=== PATIENT | male | born 1945 | race Asian ===

== ENCOUNTER 2020-01-12 14:15 | Inpatient (IN) | payer MEDICARE, OTHER ==
[~2020-01-12] VITALS: Ht 170.2 cm; Wt 65.3 kg
[~2020-01-12 14:15] MED LIST: ACETAMINOPHEN325 M1 ORAL; APRODINE TABLE1 EACH PO; ARICEPT10 MG ORAL; ASPIRIN81 MG ORAL; ATENOLOL25 MG ORAL; ATENOLOL50 MG ORAL; AZOR 10-40 MG1 EACH ORAL; CARDURA8 MG ORAL; CRESTOR40 MG ORAL; DONEPEZIL HCL10 MG ORAL; DOXAZOSIN MESYLA4 MG ORAL; DULCOLAX10 MG RC; FINASTERIDE5 MG ORAL; FLONASE1 SPRAYS NASAL; GLIPIZIDE-METF1 EAC2 PO; GLUCOPHAGE500 MG ORAL; INVOKANA300 MG PO; JANUVIA100 MG ORAL; LEVOTHYROXINE125 MCG ORAL; LEXAPRO5 MG ORAL; LOSARTAN POTASS50 MG ORAL; LOVASTATIN20 MG ORAL; NAMENDA10 MG ORAL; NEXIUM40 MG ORAL; NORMODYNE100 MG ORAL; NORVASC5 MG ORAL; PROSCAR5 MG ORAL; SYNTHROID137 MCG ORAL; TRADJENTA5 MG PO; VIAGRA50 MG ORAL; VITAMIN D400 INTLU ORAL; XALATAN2.5 ML BOTH EYES
[2020-01-12 14:30] VITALS: BP 183/94
[2020-01-12] MEDS ORDERED: Azithromycin 500 MG in NS 275 ML IV ONE (14:30)
--- NOTE | 2020-01-12 14:30 | NUR ---
ED Nurse Note: Pt was BIBA from [facility], [place], operated by [facility] brought in by RA 29 due to SOB and low oxygen saturation 83% in room air. Pt came in with NC at 4LPM now at 94%. Per report, pt was COVID positive as per test result done at the [facility]. Placed on bed, hooked to grey goods examiner. Activated hepa filter. Raised bilateral side rails. droplet/airborne isolation precautions initiated. Safety measures met. Kept the door closed at all times. Will continue to monitor.
--- NOTE | 2020-01-12 14:38 | Emergency Room Report ---
History of Present Illness General Chief Complaint: Dyspnea/Respdistress Present Illness HPI 74-year-old male history of stroke, diabetes, dementia, bedbound, heart disease presented for shortness of breath and fever. [facility] with [facility] patients. Patient did test positive for coronavirus today. Patient is nonverbal at baseline. He is unable to provide any history. History taken from the longterm report. As well as EMS. Patient reportedly hypoxic on room air 83% on EMS arrival. Patient is DNR with selective treatment. Allergies: Coded Allergies: No Known Allergies (Unverified , 08/16/14) COVID-19 Screening Contact w/high risk pt: No Recent Travel to affected area: No Experienced COVID-19 symptoms?: Yes COVID-19 symptoms experienced: Fever (T>100.4F or >38C), Shortness of Breath Patient History Reviewed Nursing Documentation: PMH: Agreed; PSxH: Agreed Nursing Documentation-PMH Hx Cardiac Problems: Yes - CABG, CAD Hx Hypertension: Yes Hx Diabetes: Yes Hx Cancer: No Hx Gastrointestinal Problems: No - hypothyroidism Hx Neurological Problems: No Hx Cerebrovascular Accident: Yes Review of Systems All Other Systems: limited - Secondary to patient's baseline altered mental status Physical Exam Vital Signs Date Time Temp Pulse Resp B/P (MAP) Pulse Ox O2 Delivery O2 Flow Rate FiO2 01/12/20 14:16 100.2 104 24 183/94 (123) 94 Nasal Cannula 4.0 Sp02 EP Interpretation: reviewed, abnormal General Appearance: cachetic, Chronically Ill Head: normocephalic, atraumatic Eyes: bilateral eye PERRL, bilateral eye EOMI ENT: hearing grossly normal, moist mucus membranes Neck: full range of motion, supple Respiratory: normal inspection, no respiratory distress Cardiovascular #1: normal peripheral pulses, no murmur, tachycardia Gastrointestinal: non tender, soft, non-distended, no guarding Neurologic: alert, other - Patient does respond to voice, but is nonverbal at baseline. Skin: normal color, warm/dry Procedures Critical Care Time Critical Care Time Critical care is managed patient due to presentation with shortness of breath and active coronavirus infection. Critical care time is approximately 38 minutes and excludes procedures. Medical Decision Making Diagnostic Impression: Primary Impression: COVID-19 Additional Impression: UTI (urinary tract infection) ER Course MDM: Patient presented with hypoxia, known coronavirus infection. Patient was a DNR with selective treatment. differential diagnosis: covid-19, pneumonia, UTI, bacteremia, respiratory failure Clinical course Patient placed on stretcher. On case monitor. After initial history and physical I ordered labs, IV antibiotics, oxygen given Labs -leukocytosis noted, this with bacteria and WBCs Patient admitted to the hospital under Dr. Drummond. Patient admitted to an isolation floor. Laboratory Tests Test 01/12/20 14:25 01/12/20 14:40 Urine Color Yellow Urine Appearance Very cloudy Urine pH 5 (4.5-8.0) Urine Specific [place] 1.020 (1.005-1.035) Urine Protein 4+ (NEGATIVE) H Urine Glucose (UA) 1+ (NEGATIVE) H Urine Ketones 2+ (NEGATIVE) H Urine Blood 5+ (NEGATIVE) H Urine Nitrite Negative (NEGATIVE) Urine Bilirubin Negative (NEGATIVE) Urine Urobilinogen Normal MG/DL (0.0-1.0) Urine Leukocyte Esterase 1+ (NEGATIVE) H Urine RBC 10-15 /HPF (0 - 0) H Urine WBC 5-10 /HPF (0 - 0) H Urine Squamous Epithelial Cells None /LPF (NONE/OCC) Urine Bacteria Many /HPF (NONE) H Urine Yeast Many /HPF (NONE) H White Blood Count 21.0 K/UL (4.8-10.8) H Red Blood Count 5.54 M/UL (4.70-6.10) Hemoglobin 17.6 G/DL (14.2-18.0) Hematocrit 50.7 % (42.0-52.0) Mean Corpuscular Volume 91 FL (80-99) Mean Corpuscular Hemoglobin 31.8 PG (27.0-31.0) H Mean Corpuscular Hemoglobin Concent 34.8 G/DL (32.0-36.0) Red Cell Distribution Width 12.0 % (11.6-14.8) Platelet Count 246 K/UL (150-450) Mean Platelet Volume 5.1 FL (6.5-10.1) L Neutrophils (%) (Auto) % (45.0-75.0) Lymphocytes (%) (Auto) % (20.0-45.0) Monocytes (%) (Auto) % (1.0-10.0) Eosinophils (%) (Auto) % (0.0-3.0) Basophils (%) (Auto) % (0.0-2.0) Differential Total Cells Counted 100 Neutrophils % (Manual) 87 % (45-75) H Lymphocytes % (Manual) 8 % (20-45) L Monocytes % (Manual) 5 % (1-10) Eosinophils % (Manual) 0 % (0-3) Basophils % (Manual) 0 % (0-2) Band Neutrophils 0 % (0-8) Platelet Estimate Adequate Platelet Morphology Normal Red Blood Cell Morphology Normal Sodium Level 143 MMOL/L (136-145) Potassium Level 3.7 MMOL/L (3.5-5.1) Chloride Level 107 MMOL/L (98-107) Carbon Dioxide Level 37 MMOL/L (21-32) H Blood Urea Nitrogen 48 mg/dL (7-18) H Creatinine 1.3 MG/DL (0.55-1.30) Estimated Glomerular Filtration Rate 53.8 mL/min (>60) Glucose Level 253 MG/DL (74-106) H Lactic Acid Level 1.70 mmol/L (0.4-2.0) Calcium Level 9.5 MG/DL (8.5-10.1) Total Bilirubin 0.7 MG/DL (0.2-1.0) Aspartate Amino Transferase (AST) 16 U/L (15-37) Alanine Aminotransferase (ALT) 16 U/L (12-78) Alkaline Phosphatase 51 U/L (46-116) Total Creatine Kinase 203 U/L (26-308) Creatine Kinase MB 0.6 NG/ML (0.0-3.6) Creatine Kinase MB Relative Index 0.2 Troponin I 0.095 ng/mL (0.000-0.056) Total Protein 7.6 G/DL (6.4-8.2) Albumin 3.7 G/DL (3.4-5.0) Globulin 3.9 g/dL Albumin/Globulin Ratio 0.9 (1.0-2.7) L EKG Diagnostic Results Rate: tachycardiac Rhythm: NSR, other ST Segments: no acute changes Other Impression Sinus tachycardia Chest X-Ray Diagnostic Results Chest X-Ray Diagnostic Results : Chest X-Ray Ordered: Yes # of Views/Limited/Complete: 1 View Indication: Shortness of Breath EP Interpretation: Yes Interpretation: no consolidation, no effusion, no pneumothorax Impression: No acute disease Electronically Signed by: Johnson John MD Last Vital Signs Date Time Temp Pulse Resp B/P (MAP) Pulse Ox O2 Delivery O2 Flow Rate FiO2 01/12/20 14:16 100.2 104 24 183/94 (123) 94 Nasal Cannula 4.0 Status: unchanged Disposition: ADMITTED INPATIENT Condition: Serious Johnson John M.D. Jan 12, 2020 14:38
--- NOTE | 2020-01-12 14:45 | NUR ---
ED Nurse Note: X-ray at bedside.
[2020-01-12 15:16] LABS: HEMATOCRIT 50.7 % (42.0-52.0); HEMOGLOBIN 17.6 G/DL (14.2-18.0); MEAN CORPUSCULAR VOLUME 91 FL (80-99); PLATELET COUNT 246 K/UL (150-450); RED BLOOD COUNT 5.54 M/UL (4.70-6.10)
[2020-01-12] MEDS ORDERED: SYNTHROID125 MCG ORAL (15:19)
[2020-01-12] MEDS ORDERED: AMARYL1 MG ORAL (15:19)
[2020-01-12] MEDS ORDERED: XALATAN2.5 ML BOTH EYES (15:19)
[2020-01-12] MEDS ORDERED: MILK OF MA400 MG/51 ORAL (15:19)
[2020-01-12] MEDS ORDERED: PROSCAR5 MG ORAL (15:19)
--- NOTE | 2020-01-12 15:37 | Diagnostic Imaging Report ---
Indication: Shortness of breath Technique: One view of the chest Comparison: 07/12/2019 Findings: Suboptimal inspiration currently. The lungs and pleural spaces are clear. The heart size is normal. There are median sternotomy sutures noted. No significant interim change Impression: No acute process. Findings as noted
[2020-01-12 15:38] LABS: APPEARANCE,URINE VERY CLOUDY; BILIRUBIN, URINE NEGATIVE (NEGATIVE); COLOR,URINE YELLOW; GLUCOSE, URINE (UA) 1+ (NEGATIVE); KETONES,URINE 2+ (NEGATIVE); LEUKOCYTE ESTERASE ,URINE 1+ (NEGATIVE); NITRITE,URINE NEGATIVE (NEGATIVE); PH,URINE 5 (4.5-8.0); PROTEIN,URINE 4+ (NEGATIVE); UROBILINOGEN,URINE NORMAL MG/DL (0.0-1.0)
[2020-01-12 16:35] VITALS: BP 143/79
--- NOTE | 2020-01-12 16:37 | NUR ---
ED Nurse Note: Pt on bed, awake. VSS, on 4LPM via NC. Initial skin assessment done noted pressure ulcer on sacral area; pictures taken. MRSA, VRE/CRE swabs done; sent to labs. Will continue to monitor pt.
[2020-01-12] MEDS ORDERED: cefTRIAXone 1 GM in NS 55 ML IVPB ONE (16:45)
[2020-01-12 17:14] LABS: ALANINE AMINOTRANSFERASE 16 U/L (12-78); ALBUMIN 3.7 G/DL (3.4-5.0); ALBUMIN/GLOBULIN RATIO 0.9 (1.0-2.7); ALKALINE PHOSPHATASE 51 U/L (46-116); ASPARTATE AMINO TRANSFERASE 16 U/L (15-37); BILIRUBIN,TOTAL 0.7 MG/DL (0.2-1.0); BLOOD UREA NITROGEN 48 mg/dL (7-18); CALCIUM 9.5 MG/DL (8.5-10.1); CARBON DIOXIDE 37 MMOL/L (21-32); CHLORIDE 107 MMOL/L (98-107); CKMB 0.6 NG/ML (0.0-3.6); CREATINE KINASE 203 U/L (26-308); CREATININE 1.3 MG/DL (0.55-1.30); POTASSIUM 3.7 MMOL/L (3.5-5.1); SODIUM 143 MMOL/L (136-145)
--- NOTE | 2020-01-12 18:20 | NUR ---
TRANSFER TO FLOOR: Patient transferred to Telemetry Unit as ordered, per Dr. Drummond. Report given to KAI Robledo. Belongings and medications given to receiving RN. Family and or S/O informed of transfer.
[2020-01-12 18:30] VITALS: BP 160/97
--- NOTE | 2020-01-12 19:30 | NUR ---
NURSE NOTES: Got report from Venkat RN. Pt in stable condition. Denies any pain. No s/s of distress or discomfort noted. Pt resting in bed comfortably. Bed in low andl locked position, call light within reach, bedside table within reach. Continue to monitor.
[2020-01-12 20:00] VITALS: BP 155/90
[2020-01-13] VITALS (8 sets, daily range): BP systolic 145–176; BP diastolic 60–83
[2020-01-13] MEDS ORDERED: Zosyn 4.5gm in NS 110ml q8h IVPB SCH ×2 (01:00→09:00)
[2020-01-13] MEDS: Latanoprost 0.005% Opth 2.5ml Soln BOTH EYES SCH ×2 (01:00→21:23)
--- NOTE | 2020-01-13 05:45 | Consultation ---
DATE OF CONSULTATION: 01/12/2020 CONSULTING PHYSICIAN: Vishal Drummond M.D. REQUESTING PHYSICIAN: Eliud Lizama M.D. REASON FOR CONSULTATION: Elevated troponin level in the setting of COVID-19 infection. HISTORY OF PRESENT ILLNESS: This 74-year-old male resides at a longterm facility when outbreak of COVID-19 has been going on for the past week. The patient tested positive himself for coronavirus today. He is unable to provide history, but he has been increasingly congested, short of breath, and hypoxic. He was seen in the emergency room. He was noted to have an elevated troponin level prompting this consultation. Records have been reviewed. PAST MEDICAL HISTORY: Notable for coronary artery disease, history of coronary artery bypass graft surgery, hypertension, hypertensive heart disease, type 2 diabetes mellitus, hypothyroidism, cerebrovascular disease, history of cerebrovascular accident. ALLERGIES: None known. MEDICATIONS: Prior to admission, reviewed and reconciled. FAMILY HISTORY: Not known. SOCIAL HISTORY: Unobtainable. REVIEW OF SYSTEMS: Other than records reviewed for 20 minutes with pertinent data outlined above, no additional review of systems can be obtained from the patient. PHYSICAL EXAMINATION: VITAL SIGNS: In the emergency room, he was febrile to 100.2, blood pressure 183/94, heart rate 104, and respiratory rate 24. On 4 liters, he was saturating only 94%. NECK: No accessory muscle use. Jugular venous pressure grossly normal. LUNGS: There were bilateral breath sounds with rhonchi. CARDIAC: Regular rhythm and rate. Normal S1 and S2 with a fourth heart sound. ABDOMEN: Soft. EXTREMITIES: No edema. NEUROLOGIC: He is nonverbal. LABORATORY DATA: Chest x-ray reveals no acute abnormality. EKG reveals sinus tachycardia with nonspecific ST-T wave changes. No prolongation of QT interval seen. Troponin 0.095. Lactic acid 1.7. Sodium 143, potassium 3.7, bicarbonate 37, BUN 48, creatinine 1.3. White count 21 and hemoglobin 17.6. Urinalysis with too numerous to count white cells. IMPRESSION: 1. Acute myocardial ischemia and possible non-ST elevation myocardial infarction. 2. Hypoxia. 3. COVID-19 infection upper respiratory infection or pneumonia. 4. Urinary tract infection. 5. Leukocytosis. 6. Sepsis. 7. Prerenal azotemia. 8. Dfiuc-hk-flhjohv kidney injury. 9. Hypertension with hypertensive urgency. 10. Ischemic heart disease with prior CABG. 11. Sinus tachycardia, secondary to acute infection. PLAN: 1. Isolation for COVID-19. 2. Trial of hydroxychloroquine and azithromycin with monitoring of QT interval in place. 3. Continue antianginal regimen. 4. Titrate antihypertensives. 5. Cautiously hydrate. 6. Respiratory hygiene. 7. Empiric antimicrobials. 8. Follow up troponin levels. 9. The patient is high risk in the setting of acute COVID-19 infection and advanced cardiopulmonary disease. Vishal Drummond M.D. DR: LORA JOB#: [id number] CC:
[2020-01-13] MEDS ORDERED: Piperacillin/Tazobactam 2.25 GM in D5W 55 ML IVPB SCH (06:00)
[2020-01-13 07:12] LABS: HEMATOCRIT 42.3 % (42.0-52.0); HEMOGLOBIN 14.6 G/DL (14.2-18.0); MEAN CORPUSCULAR VOLUME 93 FL (80-99); PLATELET COUNT 203 K/UL (150-450); RED BLOOD COUNT 4.55 M/UL (4.70-6.10); RED CELL DISTRIBUTION WIDTH 12.3 % (11.6-14.8); WHITE BLOOD COUNT 12.8 K/UL (4.8-10.8)
--- NOTE | 2020-01-13 07:15 | NUR ---
HAND-OFF: Report given to Edgar QUINN.
[2020-01-13 07:22] LABS: ALANINE AMINOTRANSFERASE 12 U/L (12-78); ALBUMIN 3.2 G/DL (3.4-5.0); ALKALINE PHOSPHATASE 47 U/L (46-116); ANION GAP 11 mmol/L (5-15); ASPARTATE AMINO TRANSFERASE 16 U/L (15-37); BILIRUBIN,TOTAL 0.7 MG/DL (0.2-1.0); BLOOD UREA NITROGEN 39 mg/dL (7-18); CALCIUM 9.3 MG/DL (8.5-10.1); CARBON DIOXIDE 28 MMOL/L (21-32); CHLORIDE 113 MMOL/L (98-107); CREATININE 0.9 MG/DL (0.55-1.30); POTASSIUM 3.6 MMOL/L (3.5-5.1); SODIUM 152 MMOL/L (136-145)
[2020-01-13] MEDS ORDERED: Hydroxychloroquine Fact Sheet MISC ONE (07:45)
[2020-01-13] MEDS ORDERED: Hydroxychloroquine 400mg tab ORAL SCH (09:00)
--- NOTE | 2020-01-13 09:41 | NUR ---
Pt in bed in supine position, pt is wet and needs to be changed, pt was changed and condom cath was placed, pt has no orientation is [id number], grunts and understand only Kazakh, swallow evaluation to be done today, pt does open and close his eyes. Md Lizama was present this morning to look at the pt.
[2020-01-13] MEDS: Aspirin Baby 81mg ORAL SCH (10:40)
--- NOTE | 2020-01-13 13:57 | NUR ---
CASE MANAGEMENT:REVIEW 74 YR OLD MALE BIBA FROM [facility] CC; SOB AND LOW SATURATION 83% ON RA...PLACED ON 4L/NC SI: SEPSIS. AMI. COVID 19 100.3 104 24 183/94 94% ON 4L/NC WBC+21.0 CO2+37 BUN+48 GLUCOSE+253 TROPONIN(+)0.095 IS: 1L NS IV AZITHROMYCIN URINE CX CHEST XRAY BLOOD CX : TO TELEMETRY DCP: FROM [facility]
[2020-01-13] MEDS ORDERED: Azithromycin 250mg tab ORAL SCH (14:00)
--- NOTE | 2020-01-13 15:27 | NUR ---
NURSE NOTES:WOUND CARE NOTES: Pt presented on admission with an open Sacral DTPI . Base of wound is purple with small opening at sacrococcygeal area. Hyperpigmentation noted to cleft of buttocks /perianal area. Tx.plan: Apply Moisture Barrier Paste to Sacrum. Cover with Optifoam drsg. Change every 3 days and prn. Apply Moisture Barrier Paste to cleft of buttocks and scrotum with each incontinence care. Apply Cavilon Skin Barrier to both heels. Cover each heel with Optifoam drsg. Change every 7 days and prn. Reposition at least every 2hours or as tolerated. Off-load heels with pillow. APM/ERASMO Mattress overlay.
--- NOTE | 2020-01-13 15:39 | NUR ---
STEEL ANALYST BEDSIDE SWALLOW EVAL INITIAL IMPRESSIONS: Mild to moderate oropharyngeal dysphagia due to sensorimotor deficits compounded by current respiratory status and h/o CVA (2018) resulting in oropharyngeal dysphagia. Given thin liquids via spoon w/ immediate overt s/s of aspiration. Given nectar thick liquids via spoon and via cup, no overt s/s of aspiration. Fair hyolaryngeal excursion s/p 2-3 seconds. Given puree solids via spoon, Pt req verbal cues to swallow, delayed oral transit, mild oral residuals remaining in oral cavity; cleared w/ verbal cues for 2nd swallow. High Risk for Silent Aspiration. Continue w/ oral care, please use toothbrush w/ tongue. Educated RN and Pt on results, recommendations, and safe swallow compensatory strategies. Recommendations: 1. Cardiac Diet (per RD at SNF) Puree Solids with Clymer Thick Liquids; Aspiration Precautions and 1:1 feeder. ASPIRATION PRECAUTIONS AT [facility] 2. STEEL ANALYST dysphagia tx and management 3X A WEEK X 1 WEEK 3. Pt may benefit from STEEL ANALYST Cog Comm Evaluation for communication tips and to facilitate Pts ability to communicate wants and needs to staff and caregivers. 4. STEEL ANALYST plans to monitor Pt's appropriateness/candidacy for MBSS objective swallow evaluation to r/o silent aspiration and further evaluate swallow physiology.
--- NOTE | 2020-01-13 16:00 | Consultation ---
History of Present Illness General Date patient seen: Jan 13, 2020 Chief Complaint: Dyspnea/Respdistress Present Illness HPI 74-year-old male with multiple medical comorbidities including history of stroke , diabetes, dementia, bedbound, heart disease presented for shortness of breath and fever. Patient [facility] from [facility] with known [facility] patients. Patient did test positive for coronavirus. Patient is nonverbal at baseline. He is unable to provide any history. History taken from the alf report. As well as EMS. Patient reportedly hypoxic on room air 83% on EMS arrival. Patient is DNR with selective treatment. on admission noted to have abnormal labs and multiple wounds requiring care. surgery called to evaluate and assist with care. Allergies: Coded Allergies: No Known Allergies (Unverified , 08/16/14) Medication History Scheduled Amlodipine Besylate (Norvasc), 5 MG ORAL DAILY, (Reported) Amlodipine Besylate (Norvasc), 5 MG ORAL DAILY Aspirin* (Aspirin*), 81 MG ORAL DAILY Atenolol* (Tenormin*), 25 MG ORAL DAILY Canagliflozin (Invokana), 300 MG PO DAILY, (Reported) Donepezil Hcl* (Aricept*), 10 MG ORAL DAILY, (Reported) Donepezil Hcl* (Donepezil Hcl*), 10 MG ORAL QHS Doxazosin Mesylate (Cardura), 8 MG ORAL DAILY, (Reported) Escitalopram Oxalate (Lexapro), 10 MG ORAL DAILY, (Reported) Finasteride (Finasteride), 5 MG ORAL DAILY Finasteride* (Proscar*), 5 MG ORAL DAILY, (Reported) Finasteride* (Proscar*), 5 MG ORAL DAILY, (Reported) Glimepiride* (Amaryl*), 1 MG ORAL BEFORE BREAKFAST, (Reported) Glipizide/Metformin Hcl (Glipizide-Metformin 5-500 Mg), 2 EACH PO BID, (Reported ) Labetalol HCl (Labetalol HCl), 100 MG ORAL EVERY 12 HOURS, (Reported) Latanoprost* (Xalatan*), 1 DROP BOTH EYES BEDTIME, (Reported) Latanoprost* (Xalatan*), 1 DROP BOTH EYES BEDTIME Latanoprost* (Xalatan*), 1 DROP BOTH EYES BEDTIME, (Reported) Levothyroxine Sodium (Synthroid), 125 MCG ORAL DAILY, (Reported) Levothyroxine Sodium* (Synthroid*), 125 MCG ORAL DAILY, (Reported) Linagliptin (Tradjenta), 5 MG PO DAILY, (Reported) Losartan Potassium* (Losartan Potassium*), 100 MG ORAL DAILY, (Reported) Magnesium Hydroxide* (Milk Of Magnesia*), 30 ML ORAL DAILY, (Reported) Memantine Hcl* (Namenda*), 10 MG ORAL TWICE A DAY, (Reported) Metformin Hcl* (Glucophage*), 500 MG ORAL BIDPC Rosuvastatin Calcium* (Crestor*), 40 MG ORAL DAILY, (Reported) Vitamin D (Vitamin D3), 5,000 UNITS ORAL DAILY, (Reported) Scheduled PRN Acetaminophen* (Acetaminophen 325MG Tablet*), 650 MG ORAL Q4H PRN for Mild Pain/ Temp > 100.5, (Reported) Bisacodyl (Dulcolax), 10 MG RC DAILY PRN for Constipation, (Reported) Patient History Limited by: medical condition History Provided By: Medical Record, PMD Healthcare decision maker N Resuscitation status Advanced Directive on File Past Medical/Surgical History Past Medical/Surgical History: (1) Sepsis (2) Fever (3) Proteinuria (4) Pneumonia (5) Hematuria (6) CAD (coronary artery disease) (7) Fever of unknown origin (8) Sepsis (9) Uncontrolled diabetes mellitus (10) Dehydration (11) Malnutrition of moderate degree (12) UTI (urinary tract infection) (13) COVID-19 Review of Systems ROS Narrative unable to obtain given medical condition Physical Exam General Appearance: mild distress Lines, tubes and drains: peripheral HEENT: mucous membranes moist Neck: normal inspection Respiratory/Chest: no respiratory distress, no accessory muscle use, decreased breath sounds Cardiovascular/Chest: normal rate Abdomen: soft, no organomegaly, no mass Extremities: non-tender, slow capillary refill Neurologic: unresponsiveness Last 24 Hour Vital Signs Date Time Temp Pulse Resp B/P (MAP) Pulse Ox O2 Delivery O2 Flow Rate FiO2 01/13/20 12:30 96.5 87 22 159/82 (107) 96 01/13/20 11:51 88 01/13/20 10:41 104 159/60 01/13/20 10:40 104 159/60 01/13/20 09:37 Nasal Cannula 2.0 01/13/20 09:21 98.1 94 18 176/83 (114) 96 01/13/20 08:59 98.1 94 18 176/83 (114) 96 01/13/20 07:47 104 01/13/20 04:00 104 01/13/20 04:00 97.0 102 20 159/60 (93) 98 01/13/20 01:21 100 146/60 01/13/20 00:49 Nasal Cannula 2.0 01/13/20 00:00 94 01/13/20 00:00 98.6 100 20 146/60 (88) 100 01/12/20 21:00 Nasal Cannula 2.0 01/12/20 20:00 98.0 100 20 155/90 (111) 95 01/12/20 19:00 102 01/12/20 18:43 Nasal Cannula 4.0 01/12/20 18:30 98.2 99 20 160/97 (118) 98 01/12/20 18:20 100.2 95 24 158/78 100 Nasal Cannula 4.0 01/12/20 16:35 100.2 95 22 143/79 100 Nasal Cannula 4.0 01/12/20 16:30 103 Intake and Output 01/12/20 01/13/20 19:00 07:00 Intake Total 1275 ml Output Total 0 ml Balance 1275 ml 0 ml Intake IV Total 1275 ml Output Stool Total 0 ml # Voids 3 # Bowel Movements 2 Laboratory Tests Test 01/13/20 06:15 White Blood Count 12.8 K/UL (4.8-10.8) H Red Blood Count 4.55 M/UL (4.70-6.10) L Hemoglobin 14.6 G/DL (14.2-18.0) Hematocrit 42.3 % (42.0-52.0) Mean Corpuscular Volume 93 FL (80-99) Mean Corpuscular Hemoglobin 32.0 PG (27.0-31.0) H Mean Corpuscular Hemoglobin Concent 34.4 G/DL (32.0-36.0) Red Cell Distribution Width 12.3 % (11.6-14.8) Platelet Count 203 K/UL (150-450) Mean Platelet Volume 5.5 FL (6.5-10.1) L Neutrophils (%) (Auto) % (45.0-75.0) Lymphocytes (%) (Auto) % (20.0-45.0) Monocytes (%) (Auto) % (1.0-10.0) Eosinophils (%) (Auto) % (0.0-3.0) Basophils (%) (Auto) % (0.0-2.0) Differential Total Cells Counted 100 Neutrophils % (Manual) 89 % (45-75) H Lymphocytes % (Manual) 7 % (20-45) L Monocytes % (Manual) 4 % (1-10) Eosinophils % (Manual) 0 % (0-3) Basophils % (Manual) 0 % (0-2) Band Neutrophils 0 % (0-8) Platelet Estimate Adequate Platelet Morphology Normal Red Blood Cell Morphology Normal Sodium Level 152 MMOL/L (136-145) H Potassium Level 3.6 MMOL/L (3.5-5.1) Chloride Level 113 MMOL/L (98-107) H Carbon Dioxide Level 28 MMOL/L (21-32) Anion Gap 11 mmol/L (5-15) Blood Urea Nitrogen 39 mg/dL (7-18) H Creatinine 0.9 MG/DL (0.55-1.30) Estimat Glomerular Filtration Rate > 60 mL/min (>60) Glucose Level 244 MG/DL (74-106) H Calcium Level 9.3 MG/DL (8.5-10.1) Magnesium Level 2.2 MG/DL (1.8-2.4) Total Bilirubin 0.7 MG/DL (0.2-1.0) Aspartate Amino Transf (AST/SGOT) 16 U/L (15-37) Alanine Aminotransferase (ALT/SGPT) 12 U/L (12-78) Alkaline Phosphatase 47 U/L (46-116) Troponin I 0.048 ng/mL (0.000-0.056) Total Protein 6.5 G/DL (6.4-8.2) Albumin 3.2 G/DL (3.4-5.0) L Globulin 3.3 g/dL Albumin/Globulin Ratio 1.0 (1.0-2.7) Microbiology Date/Time Source Procedure Growth Status 01/12/20 16:13 Rectum Received Height (Feet): 5 Height (Inches): 7.00 Weight (Pounds): 170 Medications Current Medications Medications (Trade) Dose Ordered Sig/Wayne Route PRN Reason Start Time Stop Time Status Last Admin Dose Admin Acetaminophen (Tylenol) 650 mg Q4H PRN ORAL Mild Pain (Pain Scale 1-3) 01/12/20 20:45 02/11/20 20:44 Amlodipine Besylate (Norvasc) 5 mg DAILY ORAL 01/13/20 09:00 02/12/20 08:59 01/13/20 10:41 Aspirin (ASA) 81 mg DAILY ORAL 01/13/20 09:00 02/27/20 08:59 01/13/20 10:40 Azithromycin (Zithromax) 250 mg DAILY@1400 ORAL 01/13/20 14:00 01/20/20 13:59 01/13/20 13:40 Hydroxychloroquine Sulfate (Plaquenil) 200 mg BID ORAL 01/14/20 09:00 01/17/20 18:01 Hydroxychloroquine Sulfate (Plaquenil) 400 mg BID ORAL 01/13/20 09:00 01/13/20 18:01 Labetalol HCl (Normodyne) 100 mg Q12HR ORAL 01/13/20 00:00 02/12/20 00:00 01/13/20 10:40 Latanoprost (Xalatan) 1 drop BEDTIME BOTH EYES 01/13/20 01:00 02/12/20 00:59 Ondansetron HCl (Zofran) 4 mg EVERY 4 HOURS PRN IVP Nausea & Vomiting 01/12/20 20:45 02/11/20 20:44 Sodium Chloride 1,000 ml @ 70 mls/hr [id number] IV 01/12/20 20:45 02/11/20 20:44 01/13/20 13:05 Vancomycin HCl (Vanco rx to dose) 1 ea DAILY PRN MISC Per rx protocol 01/13/20 14:45 02/12/20 14:44 Vancomycin HCl 500 mg/Dextrose 110 ml @ 110 mls/hr Q12HR@0500,1700 IVPB 01/13/20 17:00 01/18/20 16:59 Assessment/Plan Problem List: (1) COVID-19 Assessment & Plan: positive all precautions taken ICD Codes: U07.1 - COVID-19 SNOMED: 820372199 (2) UTI (urinary tract infection) ICD Codes: N39.0 - Urinary tract infection, site not specified SNOMED: 46544179 (3) Dehydration ICD Codes: E86.0 - Dehydration SNOMED: 35465391 (4) Fever ICD Codes: R50.9 - Fever, unspecified SNOMED: 133502135 (5) Hematuria ICD Codes: R31.9 - Hematuria, unspecified SNOMED: 52738531 (6) CAD (coronary artery disease) ICD Codes: I25.10 - Atherosclerotic heart disease of [place] coronary artery without angina pectoris SNOMED: 28131862 (7) Fever of unknown origin ICD Codes: R50.9 - Fever, unspecified SNOMED: 5779455 (8) Proteinuria ICD Codes: R80.9 - Proteinuria, unspecified SNOMED: 14111719 (9) Malnutrition of moderate degree ICD Codes: E44.0 - Moderate protein-calorie malnutrition SNOMED: 923013371 (10) Sepsis ICD Codes: A41.9 - Sepsis, unspecified organism SNOMED: 61584877 (11) Sepsis Assessment & Plan: Leukocytosis, febrile covid positive , on support evaluated and noted to have presented on admission with an open Sacral DTPI Base of wound is purple with small opening at sacrococcygeal area. Hyperpigmentation noted to cleft of buttocks /perianal area. considered as possible infection. unlikely uti, cxr okay on abx as per ID Apply Moisture Barrier Paste to Sacrum. Cover with Optifoam drsg. Change every 3 days and prn. Apply Moisture Barrier Paste to cleft of buttocks and scrotum with each incontinence care. Apply Cavilon Skin Barrier to both heels. Cover each heel with Optifoam drsg. Change every 7 days and prn. Reposition at least every 2hours or as tolerated. Off-load heels with pillow. APM/ERASMO Mattress overlay. ICD Codes: A41.9 - Sepsis, unspecified organism SNOMED: 84899872 (12) Pneumonia ICD Codes: J18.9 - Pneumonia, unspecified organism SNOMED: 945391493 (13) Uncontrolled diabetes mellitus ICD Codes: E11.9 - Type 2 diabetes mellitus without complications SNOMED: 219148018 Kristopher Ayala Jan 13, 2020 16:00
--- NOTE | 2020-01-13 16:15 | History and Physical Report ---
DATE OF ADMISSION: 01/12/2020 CHIEF COMPLAINT: COVID-19 pneumonia, acute VT, respiratory failure. HISTORY OF PRESENT ILLNESS: The patient is a elderly male who was diagnosed COVID-19 pneumonia. He was transferred because of congestion and respiratory distress. He was noted in the ER to be hypoxic, somnolent, and drowsy. He had elevated troponin. In addition to being febrile, he was hypertensive. [place] [address]. Troponin 0.095. His x-ray was read as clear. The patient has been started on hydroxychloroquine, azithromycin, as well as IV antibiotics. He is now being admitted for further evaluation and care. PAST MEDICAL HISTORY: History of stroke, dysphagia, diabetes, history of ischemic cardiomyopathy, gait instability, prior history of sepsis, hypothyroidism, toxic encephalopathy, glaucoma, atherosclerotic cardiovascular disease, chronic ischemic heart disease, and BPH. PAST SURGICAL HISTORY: Unknown. CURRENT MEDICATIONS: Reconciled and reviewed. ALLERGIES: None. FAMILY HISTORY: Unknown. SOCIAL HISTORY: There is no known history of tobacco, ethanol, or drugs. REVIEW OF SYSTEMS: From the patient is unobtainable as he is nonverbal. PHYSICAL EXAMINATION: VITAL SIGNS: Temperature 100.2, pulse 104, respirations 24, blood pressure 183/94. GENERAL: The patient is a chronically ill-appearing male, no apparent distress. HEART: Regular rate and rhythm. LUNGS: Clear. ABDOMEN: Soft, nontender, nondistended. EXTREMITIES: Without clubbing, cyanosis, or edema. LABORATORY DATA: UA showed 5 to 10 wbc's. White count 13. Sodium 152. ASSESSMENT: This is a elderly male with multiple medical problems admitted with complaints of COVID-19 pneumonia, respiratory failure, acute VT likely secondary to the above, hypertension, diabetes, hypothyroidism, hypernatremia. PLAN: IV antibiotics and COVID-19 treatment per ID. Cardiology consultation regarding patient's acute VT. Hypotonic intravenous fluids. Monitor electrolytes and renal function, replace potassium and magnesium. While on hydroxychloroquine, monitor QT interval. The patient's prognosis is poor in light of his advanced age and multiple comorbidities. Eliud Lizama M.D. DR: Ernie JOB#: [id number] CC:
--- NOTE | 2020-01-13 16:42 | NUR ---
NURSE NOTES: Called and spoke to niece Angela Larios is is now on the list of next of KIN, they gave consent for Hydroxychloroquine sulfate
[2020-01-13] MEDS: Vancomycin 500mg/D5W 110ml IVPB SCH ×2 (17:10)
[2020-01-13] MEDS: Hydroxychloroquine 400mg tab ORAL SCH (17:11)
--- NOTE | 2020-01-13 19:30 | NUR ---
NURSE NOTES: RECEIVED REPORT FROM KAI HOGUE. PATIENT ASLEEP, BUT AROUSABLE. AAOX1, ABLE TO VERBALIZE SIMPLE WORDS, SUCH 'YES, 'NO', 'OKAY'. PATIENT RECEIVED SUPINE, BUT WAS REPOSITIONED WITH TWO-PERSON ASSIST TO RIGHT SIDE WITH BILATERAL HEELS ELEVATED. WOUND CARE DONE ON SACRAL PRESSURE INJURY, OPTIFOAM APPLIED TO BILATERAL HEELS. CONDOM CATHETER DRAINING WELL TO GRAVITY. NO S/SX OF PAIN OR DISCOMFORT AT THIS TIME. BREATHING IS EVEN AND UNLABORED ON 3L NC, NO S/SX OF DISTRESS NOTED. IV SITE ON RFA ASYMPTOMATIC, PATENT AND INTACT WITH 1/5NS RUNNING AT 70 ML/HR. DROPLET AND CONTACT ISOLATION IMPLEMENTED. BED LOCKED AND IN LOWEST POSITION WITH SIDERAILS X3 UP. CALL LIGHT WITHIN REACH. WILL CONTINUE TO MONITOR.
--- NOTE | 2020-01-13 20:29 | NUR ---
HAND-OFF: Report given to Eliza, endorsed Q2hr turning and wound care.
--- NOTE | 2020-01-13 20:59 | Consultation ---
DATE OF CONSULTATION: 01/13/2020 INFECTIOUS DISEASES CONSULTATION CONSULTING PHYSICIAN: Radames Morales MD. REFERRING PHYSICIAN: Vishal Drummond MD. REASON FOR CONSULTATION: COVID-19 pneumonia. HISTORY OF PRESENT ILLNESS: This is a 74-year-old gentleman with history of coronary artery disease, hypertension, status post coronary artery bypass graft, diabetes, hypothyroidism, CVA, who came in with congestion, shortness of breath, and was found to be hypoxic. He was found to have COVID-19 pneumonia. An Infectious Diseases consultation has been obtained for antibiotics. PAST MEDICAL HISTORY: 1. History of diabetes. 2. Hypertension. 3. Coronary artery disease status post coronary artery bypass graft. 4. Hypothyroidism. 5. CVA. SOCIAL HISTORY: Unknown. FAMILY HISTORY: Unknown. REVIEW OF SYSTEMS: Unable to obtain currently. MEDICATIONS: As an inpatient, he is on hydroxychloroquine, azithromycin, amlodipine, aspirin, Zosyn, Xalatan drops, labetalol, Zofran, Tylenol. ALLERGIES: No known drug allergies. PHYSICAL EXAMINATION: VITAL SIGNS: Temperature of 96.5, T-max of 100.2, pulse of 87, respiratory rate 22, blood pressure 159/82, O2 saturation of 96%. Examination deferred due to COVID-19. LABORATORY AND DIAGNOSTIC DATA: White count 21 yesterday, white count of 12.8 today, hemoglobin 14.6, hematocrit 42.3, MCV 93, platelet count of 203, neutrophils of 89%. Sodium 152, potassium 3.6, chloride 113, bicarb 28, BUN 39, creatinine 0.9, glucose 244, calcium 9.3, total bilirubin 0.7. AST 16, ALT 12, and alkaline phosphatase 47, total protein 6.5, albumin 3.2. UA is showing 5 to 10 white cells. Blood cultures growing gram-positive cocci in clusters. Urine cultures are negative. Chest x-ray is unremarkable. ASSESSMENT: This is a 74-year-old gentleman with history of diabetes, hypertension, CVA, coronary artery disease, who comes in with: 1. COVID-19 pneumonia. 2. Diabetes. 3. Hypertension. 4. Leukocytosis is improving. 5. Gram-positive sepsis. PLAN: 1. Continue hydroxychloroquine and azithromycin. 2. Discontinue Zosyn. 3. We will start the patient on IV vancomycin. 4. Continue isolation. 5. We will follow up the patient clinically. I would like to thank, Dr. Drummond, for this consultation. Radames Morales M.D. DR: Dany JOB#: [id number] CC: Vishal Drummond M.D.
[2020-01-14] VITALS: BP 150/83
--- NOTE | 2020-01-14 03:00 | Progress Note ---
DATE: 01/13/2020 CARDIOLOGY PROGRESS NOTE SUBJECTIVE: The patient is on azithromycin and hydroxychloroquine day 2, still with some congestion and hypoxia. No shortness of breath. OBJECTIVE: VITAL SIGNS: Blood pressure 157/83, pulse 86, and respirations 22. Sinus rhythm. QTc interval less than 500 milliseconds. LUNGS: Bilateral breath sounds. Rhonchi. CARDIAC: Regular rhythm and rate. Normal S1 and S2. ABDOMEN: Soft. EXTREMITIES: No edema. LABORATORY DATA: White count down to 12.8 and hemoglobin 14.6. Potassium 3.6, sodium 152, bicarbonate 28, BUN 39, and creatinine 0.9. Magnesium 2.2. Albumin 3.2. Troponin 0.048, down from 0.095. IMPRESSION: 1. COVID-19 pneumonia. 2. Dehydration. 3. Hypernatremia. 4. Acute myocardial ischemia, recovered. 5. Leukocytosis, improved. 6. Urinary tract infection. 7. Possible sepsis. PLAN: 1. Antimicrobials per Infectious Disease cloud consultant. 2. Cardiac monitoring. 3. Continue azithromycin and hydroxychloroquine. 4. Monitor QTc interval. 5. Hypotonic IV fluid. 6. No diuretic therapy. 7. Titrate antihypertensives based on clinical parameters. Vishal Drummond M.D. DR: LORA JOB#: [id number] CC:
[2020-01-14 04:00] VITALS: BP 165/90
[2020-01-14] MEDS: Vancomycin 500mg/D5W 110ml IVPB SCH ×4 (05:05→17:20)
--- NOTE | 2020-01-14 07:15 | NUR ---
NURSE NOTES: Received report from Eliza/RN, Patient is asleep, lying semi-decker, resting comfortably. On 2L Nasal canula, No distress/SOB noted. monitor car operator in place. IV on Right FA, patent, and asymptomatic. Follows simple commands, Shante pain at this time. Bed in low position and locked, Call light within reach, Encouraged to use call light when needed. Will continue plan of care.
--- NOTE | 2020-01-14 07:25 | NUR ---
HAND-OFF: Report given to KAI PADILLA. PLAN OF CARE ENDORSED.
[2020-01-14 07:34] LABS: BASOPHILS % (AUTO) 0.4 % (0.0-2.0); EOSINOPHILS % (AUTO) 0.2 % (0.0-3.0); HEMATOCRIT 39.5 % (42.0-52.0); HEMOGLOBIN 13.9 G/DL (14.2-18.0); LYMPHOCYTES % (AUTO) 10.8 % (20.0-45.0); MEAN CORPUSCULAR VOLUME 92 FL (80-99); MONOCYTES % (AUTO) 5.3 % (1.0-10.0); NEUTROPHILS % (AUTO) 83.4 % (45.0-75.0); PLATELET COUNT 210 K/UL (150-450); RED BLOOD COUNT 4.31 M/UL (4.70-6.10); RED CELL DISTRIBUTION WIDTH 12.1 % (11.6-14.8); WHITE BLOOD COUNT 10.3 K/UL (4.8-10.8)
[2020-01-14 07:59] LABS: ALANINE AMINOTRANSFERASE 13 U/L (12-78); ALBUMIN/GLOBULIN RATIO 0.9 (1.0-2.7); ALKALINE PHOSPHATASE 42 U/L (46-116); ANION GAP 9 mmol/L (5-15); ASPARTATE AMINO TRANSFERASE 14 U/L (15-37); BILIRUBIN,TOTAL 0.6 MG/DL (0.2-1.0); BLOOD UREA NITROGEN 28 mg/dL (7-18); CARBON DIOXIDE 29 MMOL/L (21-32); CHLORIDE 111 MMOL/L (98-107); CREATININE 0.8 MG/DL (0.55-1.30); POTASSIUM 3.4 MMOL/L (3.5-5.1); SODIUM 149 MMOL/L (136-145)
[2020-01-14 08:00] VITALS: BP 194/101
[2020-01-14] MEDS: Aspirin Baby 81mg ORAL SCH (09:19)
[2020-01-14] MEDS: Hydroxychloroquine 400mg tab ORAL SCH (09:19)
--- NOTE | 2020-01-14 10:37 | Consultation ---
Consult Note Consult Note CHIEF COMPLAINT: COVID-19 + HISTORY OF PRESENT ILLNESS: 74 year old female diagnosed COVID-19 pneumonia. He was transferred because of congestion and respiratory distress. Patient with hypoxemia, somnolent, and drowsy. In addition to being febrile, he was hypertensive. chest Xray is negative. The patient has been started on hydroxychloroquine, azithromycin, as well as IV antibiotics. PAST MEDICAL HISTORY: History of stroke, dysphagia, diabetes, history of ischemic cardiomyopathy, prior history of sepsis, hypothyroidism, toxic encephalopathy, glaucoma, atherosclerotic cardiovascular disease, chronic ischemic heart disease, and BPH. PAST SURGICAL HISTORY: Unknown. CURRENT MEDICATIONS: Reconciled and reviewed. ALLERGIES: None. FAMILY HISTORY: Unknown. SOCIAL HISTORY: no known history of tobacco, ethanol, or drugs. REVIEW OF SYSTEMS: unobtainable PHYSICAL EXAMINATION: WDWN NAD clear breath sounds bilaterally without rhonchi or wheeze [id number] without MRG NABS nontender no HSM no CCE nonfocal LABORATORY DATA: Labs Test 01/12/20 14:25 01/12/20 14:40 01/13/20 06:15 01/14/20 06:18 Urine Color Yellow Urine Appearance Very cloudy Urine pH 5 (4.5-8.0) Urine Specific [place] 1.020 (1.005-1.035) Urine Protein 4+ (NEGATIVE) Urine Glucose (UA) 1+ (NEGATIVE) Urine Ketones 2+ (NEGATIVE) Urine Blood 5+ (NEGATIVE) Urine Nitrite Negative (NEGATIVE) Urine Bilirubin Negative (NEGATIVE) Urine Urobilinogen Normal MG/DL (0.0-1.0) Urine Leukocyte Esterase 1+ (NEGATIVE) Urine RBC 10-15 /HPF (0 - 0) Urine WBC 5-10 /HPF (0 - 0) Urine Squamous Epithelial Cells None /LPF (NONE/OCC) Urine Bacteria Many /HPF (NONE) Urine Yeast Many /HPF (NONE) White Blood Count 21.0 K/UL (4.8-10.8) 12.8 K/UL (4.8-10.8) 10.3 K/UL (4.8-10.8) Red Blood Count 5.54 M/UL (4.70-6.10) 4.55 M/UL (4.70-6.10) 4.31 M/UL (4.70-6.10) Hemoglobin 17.6 G/DL (14.2-18.0) 14.6 G/DL (14.2-18.0) 13.9 G/DL (14.2-18.0) Hematocrit 50.7 % (42.0-52.0) 42.3 % (42.0-52.0) 39.5 % (42.0-52.0) Mean Corpuscular Volume 91 FL (80-99) 93 FL (80-99) 92 FL (80-99) Mean Corpuscular Hemoglobin 31.8 PG (27.0-31.0) 32.0 PG (27.0-31.0) 32.3 PG (27.0-31.0) Mean Corpuscular Hemoglobin Concent 34.8 G/DL (32.0-36.0) 34.4 G/DL (32.0-36.0) 35.3 G/DL (32.0-36.0) Red Cell Distribution Width 12.0 % (11.6-14.8) 12.3 % (11.6-14.8) 12.1 % (11.6-14.8) Platelet Count 246 K/UL (150-450) 203 K/UL (150-450) 210 K/UL (150-450) Mean Platelet Volume 5.1 FL (6.5-10.1) 5.5 FL (6.5-10.1) 5.4 FL (6.5-10.1) Neutrophils (%) (Auto) % (45.0-75.0) % (45.0-75.0) 83.4 % (45.0-75.0) Lymphocytes (%) (Auto) % (20.0-45.0) % (20.0-45.0) 10.8 % (20.0-45.0) Monocytes (%) (Auto) % (1.0-10.0) % (1.0-10.0) 5.3 % (1.0-10.0) Eosinophils (%) (Auto) % (0.0-3.0) % (0.0-3.0) 0.2 % (0.0-3.0) Basophils (%) (Auto) % (0.0-2.0) % (0.0-2.0) 0.4 % (0.0-2.0) Differential Total Cells Counted 100 100 Neutrophils % (Manual) 87 % (45-75) 89 % (45-75) Lymphocytes % (Manual) 8 % (20-45) 7 % (20-45) Monocytes % (Manual) 5 % (1-10) 4 % (1-10) Eosinophils % (Manual) 0 % (0-3) 0 % (0-3) Basophils % (Manual) 0 % (0-2) 0 % (0-2) Band Neutrophils 0 % (0-8) 0 % (0-8) Platelet Estimate Adequate Adequate Platelet Morphology Normal Normal Red Blood Cell Morphology Normal Normal Sodium Level 143 MMOL/L (136-145) 152 MMOL/L (136-145) 149 MMOL/L (136-145) Potassium Level 3.7 MMOL/L (3.5-5.1) 3.6 MMOL/L (3.5-5.1) 3.4 MMOL/L (3.5-5.1) Chloride Level 107 MMOL/L (98-107) 113 MMOL/L (98-107) 111 MMOL/L (98-107) Carbon Dioxide Level 37 MMOL/L (21-32) 28 MMOL/L (21-32) 29 MMOL/L (21-32) Blood Urea Nitrogen 48 mg/dL (7-18) 39 mg/dL (7-18) 28 mg/dL (7-18) Creatinine 1.3 MG/DL (0.55-1.30) 0.9 MG/DL (0.55-1.30) 0.8 MG/DL (0.55-1.30) Estimat Glomerular Filtration Rate 53.8 mL/min (>60) > 60 mL/min (>60) > 60 mL/min (>60) Glucose Level 253 MG/DL (74-106) 244 MG/DL (74-106) 227 MG/DL (74-106) Lactic Acid Level 1.70 mmol/L (0.4-2.0) Calcium Level 9.5 MG/DL (8.5-10.1) 9.3 MG/DL (8.5-10.1) 9.0 MG/DL (8.5-10.1) Total Bilirubin 0.7 MG/DL (0.2-1.0) 0.7 MG/DL (0.2-1.0) 0.6 MG/DL (0.2-1.0) Aspartate Amino Transf (AST/SGOT) 16 U/L (15-37) 16 U/L (15-37) 14 U/L (15-37) Alanine Aminotransferase (ALT/SGPT) 16 U/L (12-78) 12 U/L (12-78) 13 U/L (12-78) Alkaline Phosphatase 51 U/L (46-116) 47 U/L (46-116) 42 U/L (46-116) Total Creatine Kinase 203 U/L (26-308) Creatine Kinase MB 0.6 NG/ML (0.0-3.6) Creatine Kinase MB Relative Index 0.2 Troponin I 0.095 ng/mL (0.000-0.056) 0.048 ng/mL (0.000-0.056) Total Protein 7.6 G/DL (6.4-8.2) 6.5 G/DL (6.4-8.2) 6.2 G/DL (6.4-8.2) Albumin 3.7 G/DL (3.4-5.0) 3.2 G/DL (3.4-5.0) 3.0 G/DL (3.4-5.0) Globulin 3.9 g/dL 3.3 g/dL 3.2 g/dL Albumin/Globulin Ratio 0.9 (1.0-2.7) 1.0 (1.0-2.7) 0.9 (1.0-2.7) Anion Gap 11 mmol/L (5-15) 9 mmol/L (5-15) Magnesium Level 2.2 MG/DL (1.8-2.4) 2.1 MG/DL (1.8-2.4) ASSESSMENT: COVID-19 pneumonia, respiratory failure, acute DE hypertension, diabetes, hypothyroidism, hypernatremia protein calorie malnutrition PLAN respiratory as is oxygen as needed ID evaluation monitor for change impression, plan, and exam edited and reviewed in detail care discussed with KAI. Gustavo Jorgensen MD Jan 14, 2020 10:36
--- NOTE | 2020-01-14 10:38 | General Progress Note ---
Subjective Allergies: Coded Allergies: No Known Allergies (Unverified , 08/16/14) Objective Last 24 Hour Vital Signs Date Time Temp Pulse Resp B/P (MAP) Pulse Ox O2 Delivery O2 Flow Rate FiO2 01/14/20 09:19 96 194/101 01/14/20 09:19 96 194/101 01/14/20 08:00 98.4 96 19 194/101 (132) 95 01/14/20 04:00 80 01/14/20 04:00 98.6 88 19 165/90 (115) 97 01/14/20 00:00 97.6 86 20 150/83 (105) 97 01/14/20 00:00 75 01/13/20 21:14 78 145/75 01/13/20 21:00 Nasal Cannula 2.0 01/13/20 20:00 96.6 92 20 145/75 (98) 96 01/13/20 20:00 75 01/13/20 18:47 98.1 86 22 157/83 (107) 96 01/13/20 16:00 98.1 86 22 157/83 (107) 96 01/13/20 15:51 80 01/13/20 12:30 96.5 87 22 159/82 (107) 96 01/13/20 11:51 88 01/13/20 10:41 104 159/60 01/13/20 10:40 104 159/60 Intake and Output 01/13/20 01/14/20 19:00 07:00 Intake Total 360 ml 240 ml Output Total 250 ml 600 ml Balance 110 ml -360 ml Intake Oral 360 ml 240 ml Output Urine Total 250 ml 600 ml Stool Total 0 ml # Bowel Movements 1 1 Laboratory Tests 01/14/20 06:18: White Blood Count 10.3, Red Blood Count 4.31L, Hemoglobin 13.9L, Hematocrit 39.5L, Mean Corpuscular Volume 92, Mean Corpuscular Hemoglobin 32.3H, Mean Corpuscular Hemoglobin Concent 35.3, Red Cell Distribution Width 12.1, Platelet Count 210, Mean Platelet Volume 5.4L, Neutrophils (%) (Auto) 83.4H, Lymphocytes (%) (Auto) 10.8L, Monocytes (%) (Auto) 5.3, Eosinophils (%) (Auto) 0.2, Basophils (%) (Auto) 0.4, Sodium Level 149H, Potassium Level 3.4L, Chloride Level 111H, Carbon Dioxide Level 29, Anion Gap 9, Blood Urea Nitrogen 28H, Creatinine 0.8, Estimat Glomerular Filtration Rate > 60, Glucose Level 227H, Calcium Level 9.0, Magnesium Level 2.1, Total Bilirubin 0.6, Aspartate Amino Transf (AST/SGOT) 14L, Alanine Aminotransferase (ALT/SGPT) 13, Alkaline Phosphatase 42L, Total Protein 6.2L, Albumin 3.0L, Globulin 3.2, Albumin/ Globulin Ratio 0.9L Height (Feet): 5 Height (Inches): 7.00 Weight (Pounds): 170 Gustavo Jorgensen MD Jan 14, 2020 10:38
--- NOTE | 2020-01-14 11:00 | NUR ---
NURSE NOTES: Patient is positive for VRE Rectum. Dr. Morales is aware.
--- NOTE | 2020-01-14 11:44 | Infectious Diseases Prog Note ---
Assessment/Plan Assessment/Plan antibiotics Vancomycin 4.10.20- hydroxychloroquine 4.10.20 - azithromycin 4.9.20 - A 1. Covid 19 pneumonia 2. coag neg staph sepsis 3. diabetes mellitus 4. hypertension 5. CVA 6. leucocytosis resolved P 1. continue iv vancomycin 2. continue hydroxychloroquine 3 more days 3. d/c azithromycin 4. will follow up cultures Subjective ROS Limited/Unobtainable: Yes Allergies: Coded Allergies: No Known Allergies (Unverified , 08/16/14) Objective Vital Signs Last 24 Hour Vital Signs Date Time Temp Pulse Resp B/P (MAP) Pulse Ox O2 Delivery O2 Flow Rate FiO2 01/14/20 09:19 96 194/101 01/14/20 09:19 96 194/101 01/14/20 08:00 98.4 96 19 194/101 (132) 95 01/14/20 04:00 80 01/14/20 04:00 98.6 88 19 165/90 (115) 97 01/14/20 00:00 97.6 86 20 150/83 (105) 97 01/14/20 00:00 75 01/13/20 21:14 78 145/75 01/13/20 21:00 Nasal Cannula 2.0 01/13/20 20:00 96.6 92 20 145/75 (98) 96 01/13/20 20:00 75 01/13/20 18:47 98.1 86 22 157/83 (107) 96 01/13/20 16:00 98.1 86 22 157/83 (107) 96 01/13/20 15:51 80 01/13/20 12:30 96.5 87 22 159/82 (107) 96 01/13/20 11:51 88 Height (Feet): 5 Height (Inches): 7.00 Weight (Pounds): 170 Microbiology Date/Time Source Procedure Growth Status 01/12/20 14:40 Blood Blood Culture - Preliminary Staphylococcus Sp Coag Neg Resulted 01/12/20 14:25 Blood Blood Culture - Preliminary Resulted 01/12/20 16:13 Nasal Nares MRSA Culture - Final NO METHICILLIN RESISTANT STAPH AUREUS... Complete 01/12/20 14:25 Urine,Clean Catch Urine Culture - Preliminary NO GROWTH AFTER 24 HOURS Resulted 01/12/20 16:13 Rectum - Final NO CARBAPENEM-RESISTANT ENTEROBACTERI... Complete 01/12/20 16:13 Rectum VRE Culture - Final Enterococcus Faecalis - Vre Complete Laboratory Tests Test 01/14/20 06:18 White Blood Count 10.3 K/UL (4.8-10.8) Red Blood Count 4.31 M/UL (4.70-6.10) L Hemoglobin 13.9 G/DL (14.2-18.0) L Hematocrit 39.5 % (42.0-52.0) L Mean Corpuscular Volume 92 FL (80-99) Mean Corpuscular Hemoglobin 32.3 PG (27.0-31.0) H Mean Corpuscular Hemoglobin Concent 35.3 G/DL (32.0-36.0) Red Cell Distribution Width 12.1 % (11.6-14.8) Platelet Count 210 K/UL (150-450) Mean Platelet Volume 5.4 FL (6.5-10.1) L Neutrophils (%) (Auto) 83.4 % (45.0-75.0) H Lymphocytes (%) (Auto) 10.8 % (20.0-45.0) L Monocytes (%) (Auto) 5.3 % (1.0-10.0) Eosinophils (%) (Auto) 0.2 % (0.0-3.0) Basophils (%) (Auto) 0.4 % (0.0-2.0) Sodium Level 149 MMOL/L (136-145) H Potassium Level 3.4 MMOL/L (3.5-5.1) L Chloride Level 111 MMOL/L (98-107) H Carbon Dioxide Level 29 MMOL/L (21-32) Anion Gap 9 mmol/L (5-15) Blood Urea Nitrogen 28 mg/dL (7-18) H Creatinine 0.8 MG/DL (0.55-1.30) Estimat Glomerular Filtration Rate > 60 mL/min (>60) Glucose Level 227 MG/DL (74-106) H Calcium Level 9.0 MG/DL (8.5-10.1) Magnesium Level 2.1 MG/DL (1.8-2.4) Total Bilirubin 0.6 MG/DL (0.2-1.0) Aspartate Amino Transf (AST/SGOT) 14 U/L (15-37) L Alanine Aminotransferase (ALT/SGPT) 13 U/L (12-78) Alkaline Phosphatase 42 U/L (46-116) L Total Protein 6.2 G/DL (6.4-8.2) L Albumin 3.0 G/DL (3.4-5.0) L Globulin 3.2 g/dL Albumin/Globulin Ratio 0.9 (1.0-2.7) L Current Medications Medications (Trade) Dose Ordered Sig/[place] Route PRN Reason Start Time Stop Time Status Last Admin Dose Admin Acetaminophen (Tylenol) 650 mg Q4H PRN ORAL Mild Pain (Pain Scale 1-3) 01/12/20 20:45 02/11/20 20:44 Amlodipine Besylate (Norvasc) 5 mg DAILY ORAL 01/13/20 09:00 02/12/20 08:59 01/14/20 09:19 Aspirin (ASA) 81 mg DAILY ORAL 01/13/20 09:00 02/27/20 08:59 01/14/20 09:19 Azithromycin (Zithromax) 250 mg DAILY@1400 ORAL 01/13/20 14:00 01/20/20 13:59 01/13/20 13:40 Hydroxychloroquine Sulfate (Plaquenil) 200 mg BID ORAL 01/14/20 18:00 01/18/20 09:01 Labetalol HCl (Normodyne) 100 mg Q12HR ORAL 01/13/20 00:00 02/12/20 00:00 01/14/20 09:19 Latanoprost (Xalatan) 1 drop BEDTIME BOTH EYES 01/13/20 01:00 02/12/20 00:59 01/13/20 21:23 Ondansetron HCl (Zofran) 4 mg EVERY 4 HOURS PRN IVP Nausea & Vomiting 01/12/20 20:45 02/11/20 20:44 Sodium Chloride 1,000 ml @ 100 mls/hr Q10H IV 01/14/20 20:45 02/13/20 20:44 Vancomycin HCl (Vanco rx to dose) 1 ea DAILY PRN MISC Per rx protocol 01/13/20 14:45 02/12/20 14:44 Vancomycin HCl 500 mg/Dextrose 110 ml @ 110 mls/hr Q12HR@0500,1700 IVPB 01/13/20 17:00 01/18/20 16:59 01/14/20 05:05 Radames Morales MD Jan 14, 2020 11:44
[2020-01-14 12:00] VITALS: BP_SYST 160; BP_SYST 161; BP_DIAS 94
--- NOTE | 2020-01-14 12:39 | General Progress Note ---
Assessment/Plan Problem List: (1) UTI (urinary tract infection) ICD Codes: N39.0 - Urinary tract infection, site not specified SNOMED: 15916164 (2) Dehydration ICD Codes: E86.0 - Dehydration SNOMED: 30521233 (3) Fever ICD Codes: R50.9 - Fever, unspecified SNOMED: 887466203 (4) CAD (coronary artery disease) ICD Codes: I25.10 - Atherosclerotic heart disease of [place] coronary artery without angina pectoris SNOMED: 00869533 (5) Fever of unknown origin ICD Codes: R50.9 - Fever, unspecified SNOMED: 8253686 (6) COVID-19 ICD Codes: U07.1 - COVID-19 SNOMED: 719438481 (7) Uncontrolled diabetes mellitus ICD Codes: E11.9 - Type 2 diabetes mellitus without complications SNOMED: 571501852 (8) Pneumonia ICD Codes: J18.9 - Pneumonia, unspecified organism SNOMED: 817213793 (9) Sepsis ICD Codes: A41.9 - Sepsis, unspecified organism SNOMED: 07850424 Status: stable Assessment/Plan: Continue biotics per ID recommendations. Supplemental oxygen to keep sats greater than 92%. Monitor EKG and replace potassium. Aspiration precautions. Add Norvasc 5 daily. Add clonidine as needed. Subjective ROS Limited/Unobtainable: Yes Constitutional: Reports: malaise, weakness HEENT: Reports: no symptoms Cardiovascular: Reports: no symptoms Respiratory: Reports: cough, shortness of breath Gastrointestinal/Abdominal: Reports: no symptoms Genitourinary: Reports: no symptoms Neurologic/Psychiatric: Reports: depressed Endocrine: Reports: no symptoms Hematologic/Lymphatic: Reports: anemia Allergies: Coded Allergies: No Known Allergies (Unverified , 08/16/14) All Systems: reviewed and negative except above Subjective No events overnight. Currently hypertensive. Stable on 2 L nasal cannula. On hydroxychloroquine. No fevers. Stable shortness of breath. Labs reviewed. Patient has a low potassium level Objective Last 24 Hour Vital Signs Date Time Temp Pulse Resp B/P (MAP) Pulse Ox O2 Delivery O2 Flow Rate FiO2 01/14/20 09:19 96 194/101 01/14/20 09:19 96 194/101 01/14/20 08:00 98.4 96 19 194/101 (132) 95 01/14/20 04:00 80 01/14/20 04:00 98.6 88 19 165/90 (115) 97 01/14/20 00:00 97.6 86 20 150/83 (105) 97 01/14/20 00:00 75 01/13/20 21:14 78 145/75 01/13/20 21:00 Nasal Cannula 2.0 01/13/20 20:00 96.6 92 20 145/75 (98) 96 01/13/20 20:00 75 01/13/20 18:47 98.1 86 22 157/83 (107) 96 01/13/20 16:00 98.1 86 22 157/83 (107) 96 01/13/20 15:51 80 Intake and Output 01/13/20 01/14/20 19:00 07:00 Intake Total 360 ml 240 ml Output Total 250 ml 600 ml Balance 110 ml -360 ml Intake Oral 360 ml 240 ml Output Urine Total 250 ml 600 ml Stool Total 0 ml # Bowel Movements 1 1 Laboratory Tests 01/14/20 06:18: White Blood Count 10.3, Red Blood Count 4.31L, Hemoglobin 13.9L, Hematocrit 39.5L, Mean Corpuscular Volume 92, Mean Corpuscular Hemoglobin 32.3H, Mean Corpuscular Hemoglobin Concent 35.3, Red Cell Distribution Width 12.1, Platelet Count 210, Mean Platelet Volume 5.4L, Neutrophils (%) (Auto) 83.4H, Lymphocytes (%) (Auto) 10.8L, Monocytes (%) (Auto) 5.3, Eosinophils (%) (Auto) 0.2, Basophils (%) (Auto) 0.4, Sodium Level 149H, Potassium Level 3.4L, Chloride Level 111H, Carbon Dioxide Level 29, Anion Gap 9, Blood Urea Nitrogen 28H, Creatinine 0.8, Estimat Glomerular Filtration Rate > 60, Glucose Level 227H, Calcium Level 9.0, Magnesium Level 2.1, Total Bilirubin 0.6, Aspartate Amino Transf (AST/SGOT) 14L, Alanine Aminotransferase (ALT/SGPT) 13, Alkaline Phosphatase 42L, Total Protein 6.2L, Albumin 3.0L, Globulin 3.2, Albumin/ Globulin Ratio 0.9L Height (Feet): 5 Height (Inches): 7.00 Weight (Pounds): 170 General Appearance: WD/WN, alert Neck: supple Cardiovascular: normal rate, regular rhythm Respiratory/Chest: chest wall non-tender, lungs clear, normal breath sounds Abdomen: normal bowel sounds, non tender, soft, no organomegaly Edema: no edema noted Arm (L), no edema noted Arm (R), no edema noted Leg (L), no edema noted Leg (R), no edema noted Pedal (L), no edema noted Pedal (R), no edema noted Generalized Eliud Lizama MD Jan 14, 2020 12:39
[2020-01-14 16:00] VITALS: BP 154/88
--- NOTE | 2020-01-14 19:05 | NUR ---
NURSE NOTES: Report received from KAI Allen. Patient received on semi-decker's position. AOX1, asleep but arousable. IV flushed and intact. No erythema, bleeding, and infiltration. On 2L per nasal cannula, breathing unlabored. Patient repositioned. Bed rails raised x2. Dressing dry, and intact. Bilateral heels protected with optifoam. Bed in lowest position. Call light placed within reach. Will continue to monitor.
--- NOTE | 2020-01-14 19:15 | NUR ---
HAND-OFF: Report given to Yousif/RN, Patient is lying semi-decker's, resting comfortably. Endorsed plan of care.
--- NOTE | 2020-01-14 19:29 | Surgery Progress Note ---
Surgery Progress Note Subjective Additional Comments cont abx exam stable no acute events Objective Last 24 Hour Vital Signs Date Time Temp Pulse Resp B/P (MAP) Pulse Ox O2 Delivery O2 Flow Rate FiO2 01/14/20 16:00 97.7 88 19 154/88 (110) 96 01/14/20 16:00 69 01/14/20 13:29 161/94 01/14/20 12:00 98.0 110 19 160/94 (116) 97 01/14/20 12:00 98.0 110 19 161/94 (116) 97 01/14/20 12:00 82 01/14/20 09:19 96 194/101 01/14/20 09:19 96 194/101 01/14/20 09:00 Nasal Cannula 2.0 01/14/20 08:00 98.4 96 19 194/101 (132) 95 01/14/20 08:00 71 01/14/20 04:00 80 01/14/20 04:00 98.6 88 19 165/90 (115) 97 01/14/20 00:00 97.6 86 20 150/83 (105) 97 01/14/20 00:00 75 01/13/20 21:14 78 145/75 01/13/20 21:00 Nasal Cannula 2.0 01/13/20 20:00 96.6 92 20 145/75 (98) 96 01/13/20 20:00 75 I&O Intake and Output 01/13/20 01/14/20 19:00 07:00 Intake Total 360 ml 240 ml Output Total 250 ml 600 ml Balance 110 ml -360 ml Intake Oral 360 ml 240 ml Output Urine Total 250 ml 600 ml Stool Total 0 ml # Bowel Movements 1 1 Dressing: saturated Wound: other Drains: other Cardiovascular: RSR Respiratory: decreased breath sounds Abdomen: soft, non-tender, present bowel sounds Extremities: no tenderness, no cyanosis Laboratory Tests Test 01/14/20 06:18 White Blood Count 10.3 K/UL (4.8-10.8) Red Blood Count 4.31 M/UL (4.70-6.10) L Hemoglobin 13.9 G/DL (14.2-18.0) L Hematocrit 39.5 % (42.0-52.0) L Mean Corpuscular Volume 92 FL (80-99) Mean Corpuscular Hemoglobin 32.3 PG (27.0-31.0) H Mean Corpuscular Hemoglobin Concent 35.3 G/DL (32.0-36.0) Red Cell Distribution Width 12.1 % (11.6-14.8) Platelet Count 210 K/UL (150-450) Mean Platelet Volume 5.4 FL (6.5-10.1) L Neutrophils (%) (Auto) 83.4 % (45.0-75.0) H Lymphocytes (%) (Auto) 10.8 % (20.0-45.0) L Monocytes (%) (Auto) 5.3 % (1.0-10.0) Eosinophils (%) (Auto) 0.2 % (0.0-3.0) Basophils (%) (Auto) 0.4 % (0.0-2.0) Sodium Level 149 MMOL/L (136-145) H Potassium Level 3.4 MMOL/L (3.5-5.1) L Chloride Level 111 MMOL/L (98-107) H Carbon Dioxide Level 29 MMOL/L (21-32) Anion Gap 9 mmol/L (5-15) Blood Urea Nitrogen 28 mg/dL (7-18) H Creatinine 0.8 MG/DL (0.55-1.30) Estimat Glomerular Filtration Rate > 60 mL/min (>60) Glucose Level 227 MG/DL (74-106) H Calcium Level 9.0 MG/DL (8.5-10.1) Magnesium Level 2.1 MG/DL (1.8-2.4) Total Bilirubin 0.6 MG/DL (0.2-1.0) Aspartate Amino Transf (AST/SGOT) 14 U/L (15-37) L Alanine Aminotransferase (ALT/SGPT) 13 U/L (12-78) Alkaline Phosphatase 42 U/L (46-116) L Total Protein 6.2 G/DL (6.4-8.2) L Albumin 3.0 G/DL (3.4-5.0) L Globulin 3.2 g/dL Albumin/Globulin Ratio 0.9 (1.0-2.7) L Plan Problems: (1) COVID-19 Assessment & Plan: positive all precautions taken (2) UTI (urinary tract infection) (3) Dehydration (4) Fever (5) Hematuria (6) CAD (coronary artery disease) (7) Fever of unknown origin (8) Proteinuria (9) Malnutrition of moderate degree (10) Sepsis (11) Sepsis Assessment & Plan: Leukocytosis, febrile covid positive , on support evaluated and noted to have presented on admission with an open Sacral DTPI Base of wound is purple with small opening at sacrococcygeal area. Hyperpigmentation noted to cleft of buttocks /perianal area. considered as possible infection. unlikely uti, cxr okay on abx as per ID Apply Moisture Barrier Paste to Sacrum. Cover with Optifoam drsg. Change every 3 days and prn. Apply Moisture Barrier Paste to cleft of buttocks and scrotum with each incontinence care. Apply Cavilon Skin Barrier to both heels. Cover each heel with Optifoam drsg. Change every 7 days and prn. Reposition at least every 2hours or as tolerated. Off-load heels with pillow. APM/ERASMO Mattress overlay. (12) Pneumonia (13) Uncontrolled diabetes mellitus Kristopher Ayala Jan 14, 2020 19:29
[2020-01-14 20:00] VITALS: BP 154/75
[2020-01-14] MEDS: Latanoprost 0.005% Opth 2.5ml Soln BOTH EYES SCH (20:57)
[2020-01-15] VITALS: BP 142/72
[2020-01-15] MEDS: 1/2NS w/KCl 20mEq 1000ml 1,000 ML IV SCH ×3 (02:04→21:39)
--- NOTE | 2020-01-15 02:22 | NUR ---
NURSE NOTES: Patient resting comfortably. Asleep, but arousable. IV hydration changed per Dr. Drummond: 0.45% NS with 20 meq KCl IV running at 100mls/hr. IV site patent and intact. No signs of erythema, bleeding, or infiltration. No signs of acute distress or shortness of breath. Bed in lowest position. Call light within reach. Bed rails raised x3. Will continue to monitor.
[2020-01-15 04:00] VITALS: BP 160/85
--- NOTE | 2020-01-15 04:00 | Progress Note ---
DATE: 01/14/2020 CARDIOLOGY PROGRESS NOTE SUBJECTIVE: The patient remains on isolation for COVID-19 infection. He continues to have high blood pressure readings, monitored rhythm sinus and sinus tachycardia. He remains on hydroxychloroquine treatment. OBJECTIVE: VITAL SIGNS: Blood pressure up to 194/101 earlier, now 154/88, heart rate 69, earlier 110, respiratory rate 19 to 21, afebrile. LUNGS: Coarse breath sounds, rhonchi. CARDIAC: Regular rhythm and rate. Normal S1, S2. ABDOMEN: Soft. EXTREMITIES: Trace edema. LABORATORY DATA: White count 10, hemoglobin 14. Sodium 149, potassium 3.4, bicarb 29. BUN 28, creatinine 0.8. Albumin 3. Troponin yesterday had normalized. Blood cultures are positive for coag-negative staph. IMPRESSION: 1. Malignant range hypertension. 2. Hypertensive urgency. 3. Hypertensive heart disease. 4. COVID-19 pneumonia. 5. Coag-negative Staph sepsis. 6. Increased risk for endocarditis. 7. Acute myocardial ischemia. 8. Chronic diastolic congestive heart failure. 9. Urinary tract infection with sepsis. 10. Ischemic cardiomyopathy with history of CABG. 11. Paroxysmal sinus tachycardia. 12. Dehydration. 13. Hypernatremia. 14. Hypokalemia PLAN: 1. Antimicrobials per Infectious Disease showroom consultant. 2. Potassium replacement. 3. Hypotonic IV fluid replacement. 4. Monitor QT interval while on hydroxychloroquine. 5. Titrate antihypertensive regimen. 6. Continue cardiac monitoring. 7. DNR/DNI based on advanced directives. Vishal Drummond M.D. DR: RINA JOB#: [id number] CC:
[2020-01-15 05:23] LABS: BASOPHILS % (AUTO) 0.4 % (0.0-2.0); EOSINOPHILS % (AUTO) 0.8 % (0.0-3.0); HEMATOCRIT 38.2 % (42.0-52.0); HEMOGLOBIN 13.2 G/DL (14.2-18.0); LYMPHOCYTES % (AUTO) 11.5 % (20.0-45.0); MEAN CORPUSCULAR VOLUME 93 FL (80-99); NEUTROPHILS % (AUTO) 82.3 % (45.0-75.0); PLATELET COUNT 180 K/UL (150-450); RED BLOOD COUNT 4.12 M/UL (4.70-6.10); RED CELL DISTRIBUTION WIDTH 11.8 % (11.6-14.8); WHITE BLOOD COUNT 8.3 K/UL (4.8-10.8)
[2020-01-15 05:27] LABS: ANION GAP 8 mmol/L (5-15); BLOOD UREA NITROGEN 23 mg/dL (7-18); CALCIUM 8.7 MG/DL (8.5-10.1); CARBON DIOXIDE 29 MMOL/L (21-32); CHLORIDE 110 MMOL/L (98-107); CREATININE 0.7 MG/DL (0.55-1.30); SODIUM 146 MMOL/L (136-145)
--- NOTE | 2020-01-15 07:25 | NUR ---
NURSE NOTES: Nurse report given by KAI Dodd. Patient's sleeping in bed, but easily awaken, eyes open spontaneously, denies pain, no s/s of distress or SOB, estonian speaking only, AO x 2. Bed low and locked, call light within reach, side rails x 3, bed alarm is armed. IV is running fluid, no s/s infiltration or tenderness. Pressure wound noted. 2L nasal cannula. Will continue to monitor.
--- NOTE | 2020-01-15 07:57 | NUR ---
HAND-OFF: Report given to KAI Cifuentes. Patient stable.
[2020-01-15 08:00] VITALS: BP 124/77
--- NOTE | 2020-01-15 08:51 | General Progress Note ---
Assessment/Plan Problem List: (1) UTI (urinary tract infection) ICD Codes: N39.0 - Urinary tract infection, site not specified SNOMED: 06408327 (2) Dehydration ICD Codes: E86.0 - Dehydration SNOMED: 32674811 (3) Fever ICD Codes: R50.9 - Fever, unspecified SNOMED: 398453338 (4) CAD (coronary artery disease) ICD Codes: I25.10 - Atherosclerotic heart disease of [place] coronary artery without angina pectoris SNOMED: 37559027 (5) Fever of unknown origin ICD Codes: R50.9 - Fever, unspecified SNOMED: 9590096 (6) COVID-19 ICD Codes: U07.1 - COVID-19 SNOMED: 068764794 (7) Uncontrolled diabetes mellitus ICD Codes: E11.9 - Type 2 diabetes mellitus without complications SNOMED: 204991079 (8) Pneumonia ICD Codes: J18.9 - Pneumonia, unspecified organism SNOMED: 301130424 (9) Sepsis ICD Codes: A41.9 - Sepsis, unspecified organism SNOMED: 66631827 Status: stable Assessment/Plan: Continue antibiotics per ID recommendations. Supplemental oxygen to keep sats greater than 92%. Monitor EKG and lytes- replace as needed Aspiration precautions. monitor bp and titrate as needed Subjective ROS Limited/Unobtainable: No Constitutional: Reports: malaise, weakness HEENT: Reports: no symptoms Cardiovascular: Reports: no symptoms Respiratory: Reports: cough, shortness of breath Gastrointestinal/Abdominal: Reports: difficulty swallowing Genitourinary: Reports: no symptoms Neurologic/Psychiatric: Reports: pre-existing deficit Endocrine: Reports: no symptoms Hematologic/Lymphatic: Reports: anemia Allergies: Coded Allergies: No Known Allergies (Unverified , 08/16/14) All Systems: reviewed and negative except above Subjective No events overnight. remains hypertensive. Stable on 2 L nasal cannula. withdrawn and poorly responsive. On hydroxychloroquine. No fevers. Stable shortness of breath. Labs reviewed. labs noted Objective Last 24 Hour Vital Signs Date Time Temp Pulse Resp B/P (MAP) Pulse Ox O2 Delivery O2 Flow Rate FiO2 01/15/20 04:00 71 01/15/20 04:00 97.8 71 21 160/85 (110) 95 01/15/20 00:00 60 01/15/20 00:00 97.5 72 22 142/72 (95) 96 01/14/20 21:00 Nasal Cannula 2.0 01/14/20 20:57 115 154/75 01/14/20 20:00 77 01/14/20 20:00 97.9 115 21 154/75 (101) 95 01/14/20 16:00 97.7 88 19 154/88 (110) 96 01/14/20 16:00 69 01/14/20 13:29 161/94 01/14/20 12:00 98.0 110 19 160/94 (116) 97 01/14/20 12:00 98.0 110 19 161/94 (116) 97 01/14/20 12:00 82 01/14/20 09:19 96 194/101 01/14/20 09:19 96 194/101 01/14/20 09:00 Nasal Cannula 2.0 Intake and Output 01/14/20 01/15/20 19:00 07:00 Output Total 700 ml Balance -700 ml Output Urine Total 700 ml # Voids 2 # Bowel Movements 1 Laboratory Tests 01/15/20 04:30: White Blood Count 8.3, Red Blood Count 4.12L, Hemoglobin 13.2L, Hematocrit 38.2L , Mean Corpuscular Volume 93, Mean Corpuscular Hemoglobin 32.2H, Mean Corpuscular Hemoglobin Concent 34.7, Red Cell Distribution Width 11.8, Platelet Count 180, Mean Platelet Volume 5.3L, Neutrophils (%) (Auto) 82.3H, Lymphocytes (%) (Auto) 11.5L, Monocytes (%) (Auto) 5.0, Eosinophils (%) (Auto) 0.8, Basophils (%) (Auto) 0.4, Sodium Level 146H, Potassium Level 4.0, Chloride Level 110H, Carbon Dioxide Level 29, Anion Gap 8, Blood Urea Nitrogen 23H, Creatinine 0.7, Estimat Glomerular Filtration Rate > 60, Glucose Level 171H, Calcium Level 8.7, Pro-B-Type Natriuretic Peptide 583H, Vancomycin Level Trough 6.9 Height (Feet): 5 Height (Inches): 7.00 Weight (Pounds): 170 Objective General Appearance: WD/WN, alert Neck: supple Cardiovascular: normal rate, regular rhythm Respiratory/Chest: chest wall non-tender, lungs clear, normal breath sounds Abdomen: normal bowel sounds, non tender, soft, no organomegaly Edema: no edema noted Arm (L), no edema noted Arm (R), no edema noted Leg (L), no edema noted Leg (R), no edema noted Pedal (L), no edema noted Pedal (R), no edema noted Generalized Eliud Lizama MD Jan 15, 2020 08:51
[2020-01-15] MEDS: Vancomycin 1gm/D5W 275ml IVPB SCH ×4 (09:27→21:39)
[2020-01-15] MEDS: Aspirin Baby 81mg ORAL SCH (09:28)
[2020-01-15 12:00] VITALS: BP 143/92
--- NOTE | 2020-01-15 13:08 | Pulmonology Progress Note ---
Assessment/Plan Assessment/Plan ASSESSMENT: COVID-19 pneumonia, respiratory failure, acute [place] hypertension, diabetes, hypothyroidism, hypernatremia protein calorie malnutrition bactermia PLAN respiratory noted and care reviewed oxygen as needed; low flow ID review and recommendations monitor for change aspiration precautions impression, plan, and exam edited and reviewed in detail care discussed with RN. Subjective ROS Limited/Unobtainable: Yes Allergies: Coded Allergies: No Known Allergies (Unverified , 08/16/14) Subjective overnight events reviewed no distress on oxygen low flow Objective Last 24 Hour Vital Signs Date Time Temp Pulse Resp B/P (MAP) Pulse Ox O2 Delivery O2 Flow Rate FiO2 01/15/20 09:28 70 124/77 01/15/20 09:28 70 124/77 01/15/20 09:00 Nasal Cannula 2.0 01/15/20 08:00 99.0 70 20 124/77 (93) 97 01/15/20 08:00 74 01/15/20 04:00 71 01/15/20 04:00 97.8 71 21 160/85 (110) 95 01/15/20 00:00 60 01/15/20 00:00 97.5 72 22 142/72 (95) 96 01/14/20 21:00 Nasal Cannula 2.0 01/14/20 20:57 115 154/75 01/14/20 20:00 77 01/14/20 20:00 97.9 115 21 154/75 (101) 95 01/14/20 16:00 97.7 88 19 154/88 (110) 96 01/14/20 16:00 69 01/14/20 13:29 161/94 Intake and Output 01/14/20 01/15/20 19:00 07:00 Output Total 700 ml Balance -700 ml Output Urine Total 700 ml # Voids 2 # Bowel Movements 1 Objective WDWN NAD reduced breath sounds bilaterally without rhonchi or wheeze [id number] without MRG NABS nontender no HSM no CCE confused and weak Microbiology Date/Time Source Procedure Growth Status 01/12/20 14:40 Blood Blood Culture - Final Staph Hominis Ssp Hominis Complete 01/12/20 14:25 Blood Blood Culture - Final Staphylococcus Sp Coag Neg Complete 01/12/20 16:13 Nasal Nares MRSA Culture - Final NO METHICILLIN RESISTANT STAPH AUREUS... Complete 01/12/20 14:25 Urine,Clean Catch Urine Culture - Final Pia Species Complete 01/12/20 16:13 Rectum - Final NO CARBAPENEM-RESISTANT ENTEROBACTERI... Complete 01/12/20 16:13 Rectum VRE Culture - Final Enterococcus Faecalis - Vre Complete Laboratory Tests 01/15/20 04:30: White Blood Count 8.3, Red Blood Count 4.12L, Hemoglobin 13.2L, Hematocrit 38.2L , Mean Corpuscular Volume 93, Mean Corpuscular Hemoglobin 32.2H, Mean Corpuscular Hemoglobin Concent 34.7, Red Cell Distribution Width 11.8, Platelet Count 180, Mean Platelet Volume 5.3L, Neutrophils (%) (Auto) 82.3H, Lymphocytes (%) (Auto) 11.5L, Monocytes (%) (Auto) 5.0, Eosinophils (%) (Auto) 0.8, Basophils (%) (Auto) 0.4, Sodium Level 146H, Potassium Level 4.0, Chloride Level 110H, Carbon Dioxide Level 29, Anion Gap 8, Blood Urea Nitrogen 23H, Creatinine 0.7, Estimat Glomerular Filtration Rate > 60, Glucose Level 171H, Calcium Level 8.7, Pro-B-Type Natriuretic Peptide 583H, Vancomycin Level Trough 6.9 Current Medications Medications (Trade) Dose Ordered Sig/[place] Route PRN Reason Start Time Stop Time Status Last Admin Dose Admin Acetaminophen (Tylenol) 650 mg Q4H PRN ORAL Mild Pain (Pain Scale 1-3) 01/12/20 20:45 02/11/20 20:44 Amlodipine Besylate (Norvasc) 5 mg DAILY ORAL 01/13/20 09:00 02/12/20 08:59 01/15/20 09:28 Aspirin (ASA) 81 mg DAILY ORAL 01/13/20 09:00 02/27/20 08:59 01/15/20 09:28 Clonidine HCl (Catapres Tab) 0.1 mg Q4H PRN ORAL For High Blood Pressure 01/14/20 13:30 04/13/20 13:29 01/14/20 13:29 Hydroxychloroquine Sulfate (Plaquenil) 200 mg BID ORAL 01/14/20 18:00 01/18/20 09:01 01/15/20 09:27 Labetalol HCl (Normodyne) 100 mg Q12HR ORAL 01/13/20 00:00 02/12/20 00:00 01/15/20 09:28 Latanoprost (Xalatan) 1 drop BEDTIME BOTH EYES 01/13/20 01:00 02/12/20 00:59 01/14/20 20:57 Ondansetron HCl (Zofran) 4 mg EVERY 4 HOURS PRN IVP Nausea & Vomiting 01/12/20 20:45 02/11/20 20:44 Sodium 1,000 ml @ 100 mls/hr Q10H IV 01/15/20 02:00 02/14/20 01:59 01/15/20 12:16 Vancomycin HCl (Vanco rx to dose) 1 ea DAILY PRN MISC Per rx protocol 01/13/20 14:45 02/12/20 14:44 Vancomycin HCl 1 gm/Dextrose 275 ml @ 183.708 mls/hr Q12H IVPB 01/15/20 08:00 01/20/20 07:59 01/15/20 09:27 Gustavo Jorgensen MD Jan 15, 2020 13:08
--- NOTE | 2020-01-15 14:52 | Surgery Progress Note ---
Surgery Progress Note Subjective Additional Comments labs stable exam stable no acute events Objective Last 24 Hour Vital Signs Date Time Temp Pulse Resp B/P (MAP) Pulse Ox O2 Delivery O2 Flow Rate FiO2 01/15/20 11:44 78 01/15/20 09:28 70 124/77 01/15/20 09:28 70 124/77 01/15/20 09:00 Nasal Cannula 2.0 01/15/20 08:00 99.0 70 20 124/77 (93) 97 01/15/20 08:00 74 01/15/20 04:00 71 01/15/20 04:00 97.8 71 21 160/85 (110) 95 01/15/20 00:00 60 01/15/20 00:00 97.5 72 22 142/72 (95) 96 01/14/20 21:00 Nasal Cannula 2.0 01/14/20 20:57 115 154/75 01/14/20 20:00 77 01/14/20 20:00 97.9 115 21 154/75 (101) 95 01/14/20 16:00 97.7 88 19 154/88 (110) 96 01/14/20 16:00 69 I&O Intake and Output 01/14/20 01/15/20 19:00 07:00 Output Total 700 ml Balance -700 ml Output Urine Total 700 ml # Voids 2 # Bowel Movements 1 Dressing: other Wound: other Cardiovascular: RSR Respiratory: decreased breath sounds Abdomen: soft, non-tender, present bowel sounds Extremities: no tenderness, no cyanosis Laboratory Tests Test 01/15/20 04:30 White Blood Count 8.3 K/UL (4.8-10.8) Red Blood Count 4.12 M/UL (4.70-6.10) L Hemoglobin 13.2 G/DL (14.2-18.0) L Hematocrit 38.2 % (42.0-52.0) L Mean Corpuscular Volume 93 FL (80-99) Mean Corpuscular Hemoglobin 32.2 PG (27.0-31.0) H Mean Corpuscular Hemoglobin Concent 34.7 G/DL (32.0-36.0) Red Cell Distribution Width 11.8 % (11.6-14.8) Platelet Count 180 K/UL (150-450) Mean Platelet Volume 5.3 FL (6.5-10.1) L Neutrophils (%) (Auto) 82.3 % (45.0-75.0) H Lymphocytes (%) (Auto) 11.5 % (20.0-45.0) L Monocytes (%) (Auto) 5.0 % (1.0-10.0) Eosinophils (%) (Auto) 0.8 % (0.0-3.0) Basophils (%) (Auto) 0.4 % (0.0-2.0) Sodium Level 146 MMOL/L (136-145) H Potassium Level 4.0 MMOL/L (3.5-5.1) Chloride Level 110 MMOL/L (98-107) H Carbon Dioxide Level 29 MMOL/L (21-32) Anion Gap 8 mmol/L (5-15) Blood Urea Nitrogen 23 mg/dL (7-18) H Creatinine 0.7 MG/DL (0.55-1.30) Estimat Glomerular Filtration Rate > 60 mL/min (>60) Glucose Level 171 MG/DL (74-106) H Calcium Level 8.7 MG/DL (8.5-10.1) Pro-B-Type Natriuretic Peptide 583 pg/mL (0-125) H Vancomycin Level Trough 6.9 ug/mL (5.0-12.0) Plan Problems: (1) COVID-19 Assessment & Plan: positive all precautions taken (2) UTI (urinary tract infection) (3) Dehydration (4) Fever (5) Hematuria (6) CAD (coronary artery disease) (7) Fever of unknown origin (8) Proteinuria (9) Malnutrition of moderate degree (10) Sepsis (11) Sepsis Assessment & Plan: Leukocytosis, febrile covid positive , on support evaluated and noted to have presented on admission with an open Sacral DTPI Base of wound is purple with small opening at sacrococcygeal area. Hyperpigmentation noted to cleft of buttocks /perianal area. considered as possible infection. unlikely uti, cxr okay on abx as per ID Apply Moisture Barrier Paste to Sacrum. Cover with Optifoam drsg. Change every 3 days and prn. Apply Moisture Barrier Paste to cleft of buttocks and scrotum with each incontinence care. Apply Cavilon Skin Barrier to both heels. Cover each heel with Optifoam drsg. Change every 7 days and prn. Reposition at least every 2hours or as tolerated. Off-load heels with pillow. APM/ERASMO Mattress overlay. cont current care stable (12) Pneumonia (13) Uncontrolled diabetes mellitus Kristopher Ayala Jan 15, 2020 14:52
[2020-01-15 16:00] VITALS: BP 168/93
--- NOTE | 2020-01-15 19:30 | NUR ---
NURSE NOTES: Received report from KAI Cifuentes. Patient is asleep, lying in semi decker's; resting comfortably. A/Ox1, responsive to verbal and tactile stimuli. No signs of acute distress noted. Checked IV site and flushed with ongoing IV fluid as prescribed. No erythema, bleeding or infiltration noted. Bed at lowest position, brakes on, siderails x3. Call light within reach. Will continue to monitor.
--- NOTE | 2020-01-15 19:45 | NUR ---
HAND-OFF: Report given to KAI Live. Patient's stable, plan of care endorsed.
[2020-01-15 20:00] VITALS: BP 150/100
[2020-01-15] MEDS: Latanoprost 0.005% Opth 2.5ml Soln BOTH EYES SCH (21:43)
[2020-01-16] VITALS: BP 156/101
[2020-01-16 04:00] VITALS: BP 142/100
--- NOTE | 2020-01-16 04:31 | NUR ---
NURSE NOTES: Resting throughout the night. No significant change of condition noted. Will continue to monitor.
--- NOTE | 2020-01-16 05:59 | Progress Note ---
DATE: 01/15/2020 CARDIOLOGY PROGRESS NOTE SUBJECTIVE: The patient remains on antimicrobials. Supplemental oxygen is required for adequate oxygenation. The patient's blood pressure parameters are elevated. The patient remains on hydroxychloroquine therapy for COVID-19 pneumonia. OBJECTIVE: LUNGS: Bilateral breath sounds. Rhonchi. CARDIAC: Regular rhythm and rate. Normal S1 and S2. ABDOMEN: Soft. EXTREMITIES: No edema. LABORATORY DATA: White count 8.3 and hemoglobin 13.2. Sodium 146, potassium 4, bicarb 29, BUN 23, and creatinine 0.7. Pro-natriuretic peptide 583. IMPRESSION: 1. COVID-19 pneumonia. 2. Pia cystitis. 3. Staph bacteremia. 4. Positive risk of endocarditis. 5. Acute myocardial ischemia. 6. Hypertensive urgency, resolved. 7. Labile blood pressure persist. 8. Dehydration. 9. Hypernatremia, improved. 10. Ischemic heart disease with prior history of coronary artery bypass graft. PLAN: 1. Antimicrobials. 2. Respiratory hygiene. 3. Echocardiogram. 4. Monitor QT interval and hydroxychloroquine and azithromycin. 5. Optimize antihypertensive regimen. 6. Continue cardiac monitoring. 7. Replace electrolytes namely potassium and magnesium as needed especially while on hydroxychloroquine. Vishal Drummond M.D. DR: LORA JOB#: [id number] CC:
--- NOTE | 2020-01-16 07:15 | NUR ---
HAND-OFF: Report given to KAI Lorenzo. Plan of care endorsed.
--- NOTE | 2020-01-16 07:58 | General Progress Note ---
Assessment/Plan Problem List: (1) UTI (urinary tract infection) ICD Codes: N39.0 - Urinary tract infection, site not specified SNOMED: 27901395 (2) Dehydration ICD Codes: E86.0 - Dehydration SNOMED: 41419109 (3) Fever ICD Codes: R50.9 - Fever, unspecified SNOMED: 885945685 (4) CAD (coronary artery disease) ICD Codes: I25.10 - Atherosclerotic heart disease of [place] coronary artery without angina pectoris SNOMED: 46167301 (5) Fever of unknown origin ICD Codes: R50.9 - Fever, unspecified SNOMED: 2204328 (6) COVID-19 ICD Codes: U07.1 - COVID-19 SNOMED: 915970250 (7) Uncontrolled diabetes mellitus ICD Codes: E11.9 - Type 2 diabetes mellitus without complications SNOMED: 331570085 (8) Pneumonia ICD Codes: J18.9 - Pneumonia, unspecified organism SNOMED: 997010726 (9) Sepsis ICD Codes: A41.9 - Sepsis, unspecified organism SNOMED: 47972059 Status: stable Assessment/Plan: Continue antibiotics per ID recommendations. Supplemental oxygen to keep sats greater than 92%. Monitor EKG and lytes- replace as needed Aspiration precautions. monitor bp and titrate as needed Subjective ROS Limited/Unobtainable: No Constitutional: Reports: malaise, weakness HEENT: Reports: no symptoms Respiratory: Reports: cough, shortness of breath Gastrointestinal/Abdominal: Reports: difficulty swallowing Genitourinary: Reports: no symptoms Neurologic/Psychiatric: Reports: depressed, pre-existing deficit Endocrine: Reports: no symptoms Hematologic/Lymphatic: Reports: anemia Allergies: Coded Allergies: No Known Allergies (Unverified , 08/16/14) All Systems: reviewed and negative except above Subjective No events overnight. No real change. remains hypertensive. Stable on 2 L nasal cannula. withdrawn and poorly responsive. On hydroxychloroquine. No fevers. Stable shortness of breath. Labs reviewed. labs noted Objective Last 24 Hour Vital Signs Date Time Temp Pulse Resp B/P (MAP) Pulse Ox O2 Delivery O2 Flow Rate FiO2 01/16/20 04:00 98.0 66 18 142/100 (114) 96 01/16/20 04:00 66 01/16/20 00:00 66 01/16/20 00:00 97.8 69 19 156/101 (119) 99 01/15/20 21:39 80 150/100 01/15/20 21:00 Nasal Cannula 2.0 01/15/20 20:00 98.2 80 18 150/100 (117) 96 01/15/20 20:00 73 01/15/20 16:00 81 01/15/20 16:00 98.2 83 21 168/93 (118) 100 01/15/20 12:00 98.2 75 20 143/92 (109) 100 01/15/20 11:44 78 01/15/20 09:28 70 124/77 01/15/20 09:28 70 124/77 01/15/20 09:00 Nasal Cannula 2.0 01/15/20 08:00 99.0 70 20 124/77 (93) 97 01/15/20 08:00 74 Intake and Output 01/15/20 01/16/20 19:00 07:00 Intake Total 424 ml 1155 ml Output Total 700 ml 1200 ml Balance -276 ml -45 ml Intake Oral 324 ml 120 ml IV Total 100 ml 1035 ml Output Urine Total 700 ml 1200 ml # Voids 1 Height (Feet): 5 Height (Inches): 7.00 Weight (Pounds): 170 Objective General Appearance: WD/WN, alert Neck: supple Cardiovascular: normal rate, regular rhythm Respiratory/Chest: chest wall non-tender, lungs clear, normal breath sounds Abdomen: normal bowel sounds, non tender, soft, no organomegaly Edema: no edema noted Arm (L), no edema noted Arm (R), no edema noted Leg (L), no edema noted Leg (R), no edema noted Pedal (L), no edema noted Pedal (R), no edema noted Generalized Eliud Lizama MD Jan 16, 2020 07:58
[2020-01-16 08:00] VITALS: BP 163/105
--- NOTE | 2020-01-16 08:00 | NUR ---
NURSE NOTES: Patient is asleep, resting comfortably. Pt is on NC @2L with No signs of acute distress noted. IV site is c/d/i with IVF running. Pt is on media monitor. No erythema, bleeding or infiltration noted. Bed at lowest position, brakes on, siderails x3. Call light within reach. Will continue to monitor.
[2020-01-16 08:46] LABS: ALANINE AMINOTRANSFERASE 16 U/L (12-78); ALBUMIN 3.1 G/DL (3.4-5.0); ALKALINE PHOSPHATASE 52 U/L (46-116); ANION GAP 10 mmol/L (5-15); ASPARTATE AMINO TRANSFERASE 19 U/L (15-37); BILIRUBIN,TOTAL 0.9 MG/DL (0.2-1.0); BLOOD UREA NITROGEN 14 mg/dL (7-18); CALCIUM 8.8 MG/DL (8.5-10.1); CARBON DIOXIDE 26 MMOL/L (21-32); CHLORIDE 100 MMOL/L (98-107); CREATININE 0.6 MG/DL (0.55-1.30); POTASSIUM 3.9 MMOL/L (3.5-5.1); SODIUM 135 MMOL/L (136-145)
[2020-01-16 08:50] LABS: BASOPHILS % (AUTO) 0.4 % (0.0-2.0); EOSINOPHILS % (AUTO) 0.9 % (0.0-3.0); HEMATOCRIT 41.7 % (42.0-52.0); HEMOGLOBIN 14.8 G/DL (14.2-18.0); LYMPHOCYTES % (AUTO) 10.5 % (20.0-45.0); MEAN CORPUSCULAR VOLUME 90 FL (80-99); MONOCYTES % (AUTO) 4.2 % (1.0-10.0); PLATELET COUNT 196 K/UL (150-450); RED BLOOD COUNT 4.61 M/UL (4.70-6.10); RED CELL DISTRIBUTION WIDTH 11.2 % (11.6-14.8); WHITE BLOOD COUNT 8.9 K/UL (4.8-10.8)
[2020-01-16] MEDS ORDERED: Metoprolol Succinate XL 25mg tab ORAL SCH (09:00)
[2020-01-16] MEDS: Aspirin Baby 81mg ORAL SCH (09:03)
[2020-01-16] MEDS: 1/2NS w/KCl 20mEq 1000ml 1,000 ML IV SCH ×2 (09:03→17:12)
[2020-01-16] MEDS: Vancomycin 1gm/D5W 275ml IVPB SCH ×2 (09:03)
--- NOTE | 2020-01-16 09:06 | Pulmonology Progress Note ---
Assessment/Plan Assessment/Plan ASSESSMENT: COVID-19 pneumonia, respiratory failure, acute MD hypertension, diabetes, hypothyroidism, hypernatremia protein calorie malnutrition bactermia PLAN respiratory noted and care reviewed oxygen as needed; low flow ID review and recommendations monitor for change aspiration precautions impression, plan, and exam edited and reviewed in detail care discussed with RN. Subjective ROS Limited/Unobtainable: Yes Allergies: Coded Allergies: No Known Allergies (Unverified , 08/16/14) Subjective overnight events reviewed no distress on oxygen low flow Objective Last 24 Hour Vital Signs Date Time Temp Pulse Resp B/P (MAP) Pulse Ox O2 Delivery O2 Flow Rate FiO2 01/16/20 09:03 70 163/105 01/16/20 09:02 70 163/105 01/16/20 09:02 70 163/105 01/16/20 08:00 96.6 70 20 163/105 (124) 100 01/16/20 04:00 98.0 66 18 142/100 (114) 96 01/16/20 04:00 66 01/16/20 00:00 66 01/16/20 00:00 97.8 69 19 156/101 (119) 99 01/15/20 21:39 80 150/100 01/15/20 21:00 Nasal Cannula 2.0 01/15/20 20:00 98.2 80 18 150/100 (117) 96 01/15/20 20:00 73 01/15/20 16:00 81 01/15/20 16:00 98.2 83 21 168/93 (118) 100 01/15/20 12:00 98.2 75 20 143/92 (109) 100 01/15/20 11:44 78 01/15/20 09:28 70 124/77 01/15/20 09:28 70 124/77 Intake and Output 01/15/20 01/16/20 19:00 07:00 Intake Total 424 ml 1155 ml Output Total 700 ml 1200 ml Balance -276 ml -45 ml Intake Oral 324 ml 120 ml IV Total 100 ml 1035 ml Output Urine Total 700 ml 1200 ml # Voids 1 Objective WDWN NAD reduced breath sounds bilaterally without rhonchi or wheeze [id number] without MRG NABS nontender no HSM no CCE confused and weak Laboratory Tests 01/16/20 08:00: White Blood Count 8.9, Red Blood Count 4.61L, Hemoglobin 14.8, Hematocrit 41.7L , Mean Corpuscular Volume 90, Mean Corpuscular Hemoglobin 32.0H, Mean Corpuscular Hemoglobin Concent 35.4, Red Cell Distribution Width 11.2L, Platelet Count 196, Mean Platelet Volume 5.0L, Neutrophils (%) (Auto) 84.0H, Lymphocytes (%) (Auto) 10.5L, Monocytes (%) (Auto) 4.2, Eosinophils (%) (Auto) 0.9, Basophils (%) (Auto) 0.4, Sodium Level 135L, Potassium Level 3.9, Chloride Level 100, Carbon Dioxide Level 26, Anion Gap 10, Blood Urea Nitrogen 14, Creatinine 0.6, Estimat Glomerular Filtration Rate > 60, Glucose Level 176H, Calcium Level 8.8, Magnesium Level 1.9, Total Bilirubin 0.9, Aspartate Amino Transf (AST/SGOT) 19, Alanine Aminotransferase (ALT/SGPT) 16, Alkaline Phosphatase 52, Total Protein 6.1L, Albumin 3.1L, Globulin 3.0, Albumin/ Globulin Ratio 1.0 Current Medications Medications (Trade) Dose Ordered Sig/Wayne Route PRN Reason Start Time Stop Time Status Last Admin Dose Admin Acetaminophen (Tylenol) 650 mg Q4H PRN ORAL Mild Pain (Pain Scale 1-3) 01/12/20 20:45 02/11/20 20:44 Amlodipine Besylate (Norvasc) 10 mg DAILY ORAL 01/16/20 09:00 02/15/20 08:59 01/16/20 09:02 Aspirin (ASA) 81 mg DAILY ORAL 01/13/20 09:00 02/27/20 08:59 01/16/20 09:03 Clonidine HCl (Catapres Tab) 0.1 mg Q4H PRN ORAL For High Blood Pressure 01/14/20 13:30 04/13/20 13:29 01/14/20 13:29 Hydroxychloroquine Sulfate (Plaquenil) 200 mg BID ORAL 01/14/20 18:00 01/18/20 09:01 01/16/20 09:03 Labetalol HCl (Normodyne) 100 mg Q12HR ORAL 01/13/20 00:00 02/12/20 00:00 01/16/20 09:02 Latanoprost (Xalatan) 1 drop BEDTIME BOTH EYES 01/13/20 01:00 02/12/20 00:59 01/15/20 21:43 Metoprolol Succinate (Toprol XL) 25 mg DAILY ORAL 01/16/20 09:00 04/15/20 08:59 01/16/20 09:03 Ondansetron HCl (Zofran) 4 mg EVERY 4 HOURS PRN IVP Nausea & Vomiting 01/12/20 20:45 02/11/20 20:44 Sodium 1,000 ml @ 100 mls/hr Q10H IV 01/15/20 02:00 02/14/20 01:59 01/16/20 09:03 Vancomycin HCl (Vanco rx to dose) 1 ea DAILY PRN MISC Per rx protocol 01/13/20 14:45 02/12/20 14:44 Vancomycin HCl 1 gm/Dextrose 275 ml @ 183.708 mls/hr Q12H IVPB 01/15/20 08:00 01/20/20 07:59 01/16/20 09:03 Gustavo Jorgensen MD Jan 16, 2020 09:06
--- NOTE | 2020-01-16 11:05 | NUR ---
RD ASSESSMENT & RECOMMENDATIONS SEE CARE ACTIVITY FOR COMPLETE ASSESSMENT DAILY ESTIMATED NEEDS: Needs based on cardiac, wound, DM/ 65kg 25-30 kcals/kg 2862-2900 total kcals 1.25-1.5 g protein/kg 81-98 g total protein 25-30 mL/kg 2152-1592 total fluid mLs NUTRITION DIAGNOSIS: * Swallowing difficulty R/T dysphagia, h/o CVA as evidenced by pt on liquify pureed, NTL per TALENT ACQUISITION ADMINISTRATOR rec. CURRENT DIET:Cardiac liq puree w/ NTL PO DIET RECOMMENDATIONS: Low na diet/ texture per TALENT ACQUISITION ADMINISTRATOR + Glucerna BID ADDITIONAL RECOMMENDATIONS: * Calibrated bedscale wt for accurate CBW (143# per SNF) * Add GLUCERNA BID w/ meals w/ variable po * Wound care: as tolerated SATYA BID + Vit C 250mg daily * Monitor BGs closely, rec NISS for coverage * Consider appetite stimulant * Consult RD if temp non oral feeds are part of POC * Liberalized Low Na diet; rec CCHO w/ consistent po intake >50%
--- NOTE | 2020-01-16 11:34 | NUR ---
CASE MANAGEMENT:REVIEW 01/16/20 SI: SEPSIS D/T BACTEREMIA. AMI. COVID 19 PNEUMONIA(TESTED POSITIVE AT [facility]) 96.6 70 20 163/105 100% ON 2L/NC GLUCOSE+176 ALB-3.1 IS: IV VANCOMYCIN Q12 IVF@100/HR NORVASC PO QD TOPROL XL PO QD PLAQUENIL PO BID ASA PO QD LABETALOL PO Q12 : TELEMETRY STATUS DCP: FROM [facility] PLAN: MAINTAIN DROPLET PRECAUTIONS CONTINUE PLAQUENIL AND VANCOMYCIN
--- NOTE | 2020-01-16 11:35 | Infectious Diseases Prog Note ---
Assessment/Plan Assessment/Plan antibiotics Vancomycin 4.10.20- hydroxychloroquine 4.10.20 - A 1. Covid 19 pneumonia 2. coag neg staph in blood likely contaminated 3. diabetes mellitus 4. hypertension 5. CVA 6. leucocytosis resolved P 1. d/c iv vancomycin 2. continue hydroxychloroquine 1 more day 3. will follow up cultures 4. continue isolation Subjective ROS Limited/Unobtainable: Yes Allergies: Coded Allergies: No Known Allergies (Unverified , 08/16/14) Objective Vital Signs Last 24 Hour Vital Signs Date Time Temp Pulse Resp B/P (MAP) Pulse Ox O2 Delivery O2 Flow Rate FiO2 01/16/20 09:03 70 163/105 01/16/20 09:02 70 163/105 01/16/20 09:02 70 163/105 01/16/20 08:00 96.6 70 20 163/105 (124) 100 01/16/20 04:00 98.0 66 18 142/100 (114) 96 01/16/20 04:00 66 01/16/20 00:00 66 01/16/20 00:00 97.8 69 19 156/101 (119) 99 01/15/20 21:39 80 150/100 01/15/20 21:00 Nasal Cannula 2.0 01/15/20 20:00 98.2 80 18 150/100 (117) 96 01/15/20 20:00 73 01/15/20 16:00 81 01/15/20 16:00 98.2 83 21 168/93 (118) 100 01/15/20 12:00 98.2 75 20 143/92 (109) 100 01/15/20 11:44 78 Height (Feet): 5 Height (Inches): 7.00 Weight (Pounds): 170 Laboratory Tests Test 01/16/20 08:00 White Blood Count 8.9 K/UL (4.8-10.8) Red Blood Count 4.61 M/UL (4.70-6.10) L Hemoglobin 14.8 G/DL (14.2-18.0) Hematocrit 41.7 % (42.0-52.0) L Mean Corpuscular Volume 90 FL (80-99) Mean Corpuscular Hemoglobin 32.0 PG (27.0-31.0) H Mean Corpuscular Hemoglobin Concent 35.4 G/DL (32.0-36.0) Red Cell Distribution Width 11.2 % (11.6-14.8) L Platelet Count 196 K/UL (150-450) Mean Platelet Volume 5.0 FL (6.5-10.1) L Neutrophils (%) (Auto) 84.0 % (45.0-75.0) H Lymphocytes (%) (Auto) 10.5 % (20.0-45.0) L Monocytes (%) (Auto) 4.2 % (1.0-10.0) Eosinophils (%) (Auto) 0.9 % (0.0-3.0) Basophils (%) (Auto) 0.4 % (0.0-2.0) Sodium Level 135 MMOL/L (136-145) L Potassium Level 3.9 MMOL/L (3.5-5.1) Chloride Level 100 MMOL/L (98-107) Carbon Dioxide Level 26 MMOL/L (21-32) Anion Gap 10 mmol/L (5-15) Blood Urea Nitrogen 14 mg/dL (7-18) Creatinine 0.6 MG/DL (0.55-1.30) Estimat Glomerular Filtration Rate > 60 mL/min (>60) Glucose Level 176 MG/DL (74-106) H Calcium Level 8.8 MG/DL (8.5-10.1) Magnesium Level 1.9 MG/DL (1.8-2.4) Total Bilirubin 0.9 MG/DL (0.2-1.0) Aspartate Amino Transf (AST/SGOT) 19 U/L (15-37) Alanine Aminotransferase (ALT/SGPT) 16 U/L (12-78) Alkaline Phosphatase 52 U/L (46-116) Total Protein 6.1 G/DL (6.4-8.2) L Albumin 3.1 G/DL (3.4-5.0) L Globulin 3.0 g/dL Albumin/Globulin Ratio 1.0 (1.0-2.7) Current Medications Medications (Trade) Dose Ordered Sig/Wayne Route PRN Reason Start Time Stop Time Status Last Admin Dose Admin Acetaminophen (Tylenol) 650 mg Q4H PRN ORAL Mild Pain (Pain Scale 1-3) 01/12/20 20:45 02/11/20 20:44 Amlodipine Besylate (Norvasc) 10 mg DAILY ORAL 01/16/20 09:00 02/15/20 08:59 01/16/20 09:02 Aspirin (ASA) 81 mg DAILY ORAL 01/13/20 09:00 02/27/20 08:59 01/16/20 09:03 Clonidine HCl (Catapres Tab) 0.1 mg Q4H PRN ORAL For High Blood Pressure 01/14/20 13:30 04/13/20 13:29 01/14/20 13:29 Hydroxychloroquine Sulfate (Plaquenil) 200 mg BID ORAL 01/14/20 18:00 01/18/20 09:01 01/16/20 09:03 Labetalol HCl (Normodyne) 100 mg Q12HR ORAL 01/13/20 00:00 02/12/20 00:00 01/16/20 09:02 Latanoprost (Xalatan) 1 drop BEDTIME BOTH EYES 01/13/20 01:00 02/12/20 00:59 01/15/20 21:43 Metoprolol Succinate (Toprol XL) 25 mg DAILY ORAL 01/16/20 09:00 04/15/20 08:59 01/16/20 09:03 Ondansetron HCl (Zofran) 4 mg EVERY 4 HOURS PRN IVP Nausea & Vomiting 01/12/20 20:45 02/11/20 20:44 Sodium 1,000 ml @ 100 mls/hr Q10H IV 01/15/20 02:00 02/14/20 01:59 01/16/20 09:03 Vancomycin HCl (Vanco rx to dose) 1 ea DAILY PRN MISC Per rx protocol 01/13/20 14:45 02/12/20 14:44 Vancomycin HCl 1 gm/Dextrose 275 ml @ 183.708 mls/hr Q12H IVPB 01/15/20 08:00 01/20/20 07:59 01/16/20 09:03 Radames Morales MD Jan 16, 2020 11:35
[2020-01-16 12:00] VITALS: BP 149/92
--- NOTE | 2020-01-16 13:06 | Surgery Progress Note ---
Surgery Progress Note Subjective Additional Comments no acute events comfortable stable labs okay Objective Last 24 Hour Vital Signs Date Time Temp Pulse Resp B/P (MAP) Pulse Ox O2 Delivery O2 Flow Rate FiO2 01/16/20 12:00 96.7 73 18 149/92 (111) 97 01/16/20 09:03 70 163/105 01/16/20 09:02 70 163/105 01/16/20 09:02 70 163/105 01/16/20 09:00 Nasal Cannula 2.0 01/16/20 08:00 96.6 70 20 163/105 (124) 100 01/16/20 08:00 70 01/16/20 04:00 98.0 66 18 142/100 (114) 96 01/16/20 04:00 66 01/16/20 00:00 66 01/16/20 00:00 97.8 69 19 156/101 (119) 99 01/15/20 21:39 80 150/100 01/15/20 21:00 Nasal Cannula 2.0 01/15/20 20:00 98.2 80 18 150/100 (117) 96 01/15/20 20:00 73 01/15/20 16:00 81 01/15/20 16:00 98.2 83 21 168/93 (118) 100 I&O Intake and Output 01/15/20 01/16/20 19:00 07:00 Intake Total 424 ml 1155 ml Output Total 700 ml 1200 ml Balance -276 ml -45 ml Intake Oral 324 ml 120 ml IV Total 100 ml 1035 ml Output Urine Total 700 ml 1200 ml # Voids 1 Dressing: saturated Wound: clean Cardiovascular: RSR Respiratory: decreased breath sounds Abdomen: soft, non-tender, present bowel sounds Extremities: no tenderness, no cyanosis Laboratory Tests Test 01/16/20 08:00 White Blood Count 8.9 K/UL (4.8-10.8) Red Blood Count 4.61 M/UL (4.70-6.10) L Hemoglobin 14.8 G/DL (14.2-18.0) Hematocrit 41.7 % (42.0-52.0) L Mean Corpuscular Volume 90 FL (80-99) Mean Corpuscular Hemoglobin 32.0 PG (27.0-31.0) H Mean Corpuscular Hemoglobin Concent 35.4 G/DL (32.0-36.0) Red Cell Distribution Width 11.2 % (11.6-14.8) L Platelet Count 196 K/UL (150-450) Mean Platelet Volume 5.0 FL (6.5-10.1) L Neutrophils (%) (Auto) 84.0 % (45.0-75.0) H Lymphocytes (%) (Auto) 10.5 % (20.0-45.0) L Monocytes (%) (Auto) 4.2 % (1.0-10.0) Eosinophils (%) (Auto) 0.9 % (0.0-3.0) Basophils (%) (Auto) 0.4 % (0.0-2.0) Sodium Level 135 MMOL/L (136-145) L Potassium Level 3.9 MMOL/L (3.5-5.1) Chloride Level 100 MMOL/L (98-107) Carbon Dioxide Level 26 MMOL/L (21-32) Anion Gap 10 mmol/L (5-15) Blood Urea Nitrogen 14 mg/dL (7-18) Creatinine 0.6 MG/DL (0.55-1.30) Estimat Glomerular Filtration Rate > 60 mL/min (>60) Glucose Level 176 MG/DL (74-106) H Calcium Level 8.8 MG/DL (8.5-10.1) Magnesium Level 1.9 MG/DL (1.8-2.4) Total Bilirubin 0.9 MG/DL (0.2-1.0) Aspartate Amino Transf (AST/SGOT) 19 U/L (15-37) Alanine Aminotransferase (ALT/SGPT) 16 U/L (12-78) Alkaline Phosphatase 52 U/L (46-116) Total Protein 6.1 G/DL (6.4-8.2) L Albumin 3.1 G/DL (3.4-5.0) L Globulin 3.0 g/dL Albumin/Globulin Ratio 1.0 (1.0-2.7) Plan Problems: (1) COVID-19 Assessment & Plan: positive all precautions taken (2) UTI (urinary tract infection) (3) Dehydration (4) Fever (5) Hematuria (6) CAD (coronary artery disease) (7) Fever of unknown origin (8) Proteinuria (9) Malnutrition of moderate degree Assessment & Plan: DAILY ESTIMATED NEEDS: Needs based on cardiac, wound, DM/ 65kg 25-30 kcals/kg 1747-0879 total kcals 1.25-1.5 g protein/kg 81-98 g total protein 25-30 mL/kg 7881-2639 total fluid mLs NUTRITION DIAGNOSIS: * Swallowing difficulty R/T dysphagia, h/o CVA as evidenced by pt on liquify pureed, NTL per LOCK EXPERT rec. CURRENT DIET:Cardiac liq puree w/ NTL PO DIET RECOMMENDATIONS: Low na diet/ texture per LOCK EXPERT + Glucerna BID ADDITIONAL RECOMMENDATIONS: * Calibrated bedscale wt for accurate CBW (143# per SNF) * Add GLUCERNA BID w/ meals w/ variable po * Wound care: as tolerated SATYA BID + Vit C 250mg daily * Monitor BGs closely, rec NISS for coverage * Consider appetite stimulant * Consult RD if temp non oral feeds are part of POC * Liberalized Low Na diet; rec CCHO w/ consistent po intake >50% (10) Sepsis (11) Sepsis Assessment & Plan: Leukocytosis, febrile covid positive , on support evaluated and noted to have presented on admission with an open Sacral DTPI Base of wound is purple with small opening at sacrococcygeal area. Hyperpigmentation noted to cleft of buttocks /perianal area. considered as possible infection. unlikely uti, cxr okay on abx as per ID Apply Moisture Barrier Paste to Sacrum. Cover with Optifoam drsg. Change every 3 days and prn. Apply Moisture Barrier Paste to cleft of buttocks and scrotum with each incontinence care. Apply Cavilon Skin Barrier to both heels. Cover each heel with Optifoam drsg. Change every 7 days and prn. Reposition at least every 2hours or as tolerated. Off-load heels with pillow. APM/ERASMO Mattress overlay. cont current care stable (12) Pneumonia (13) Uncontrolled diabetes mellitus Kristopher Ayala Jan 16, 2020 13:06
[2020-01-16 16:00] VITALS: BP 151/95
--- NOTE | 2020-01-16 19:50 | NUR ---
NURSE NOTES: Received pt from KAI Lorenzo. Pt awake, alert, and talkative. Bed in lowest position. Call light within reach. Will continue to monitor.
[2020-01-16 20:00] VITALS: BP 142/78
[2020-01-16] MEDS: Latanoprost 0.005% Opth 2.5ml Soln BOTH EYES SCH (21:31)
[2020-01-17] VITALS: BP 138/81
[2020-01-17 04:00] VITALS: BP 140/75
--- NOTE | 2020-01-17 07:39 | NUR ---
HAND-OFF: Report given to KAI Desouza. Pt stable.
[2020-01-17 08:00] VITALS: BP 140/83
--- NOTE | 2020-01-17 08:00 | NUR ---
NURSE NOTES: Recvd pt. Pt is on NC 2L with no sign of resp distress. Pt is on color television console monitor showing SR. Pt has right forearm IV site that is c/d/i. HOB kept elevated .Aspiration precaution observed. Pt has condom catheter draining to gravity. Pt has sacral stage II, foam dressing on. bed in lowest position, brakes on, call light within reach. will continue with plan of care.
--- NOTE | 2020-01-17 08:15 | Progress Note ---
DATE: 01/16/2020 CARDIOLOGY PROGRESS NOTE SUBJECTIVE: The patient remains with rising blood pressure parameters. He remains withdrawn and lethargic. He continues on therapy for COVID, but still has congestion and shortness of breath. He is on nasal cannula. PHYSICAL EXAMINATION: VITAL SIGNS: Monitor with sinus rhythm. Blood pressure 142/100, pulse 66, respirations 18. LUNGS: Coarse breath sounds, rhonchi. CARDIAC: Regular rhythm and rate. Normal S1, S2. ABDOMEN: Soft. EXTREMITIES: Trace edema. LABORATORY DATA: White count 8.9, hemoglobin 14.8. Potassium 3.9. Magnesium 1.9. IMPRESSION: 1. . 2. COVID-19 pneumonia. 3. Hypertensive heart disease. 4. Acute on chronic diastolic congestive heart failure. 5. Resolved myocardial ischemia. PLAN: 1. Advancing antihypertensive regimen as needed. 2. Continue hypotonic hydration of IV fluids with adjustment based on clinical parameters, now will be tapered. 3. Consolidate beta-janis therapy. 4. Continue hydroxychloroquine and monitor cardiovascular parameters. No sign of complications such as QTc prolongation. Vishal Drummond M.D. DR: KATEY JOB#: [id number] CC:
[2020-01-17] MEDS: Aspirin Baby 81mg ORAL SCH (08:31)
--- NOTE | 2020-01-17 10:45 | Pulmonology Progress Note ---
Assessment/Plan Assessment/Plan ASSESSMENT: COVID-19 pneumonia, respiratory failure, acute CO hypertension, diabetes, hypothyroidism, hypernatremia protein calorie malnutrition bactermia PLAN respiratory noted and care reviewed oxygen as needed; low flow ID review and recommendations monitor for change aspiration precautions review and monitor impression, plan, and exam edited and reviewed in detail care discussed with RN. Subjective ROS Limited/Unobtainable: Yes Allergies: Coded Allergies: No Known Allergies (Unverified , 08/16/14) Subjective overnight events reviewed no distress on oxygen low flow Objective Last 24 Hour Vital Signs Date Time Temp Pulse Resp B/P (MAP) Pulse Ox O2 Delivery O2 Flow Rate FiO2 01/17/20 08:32 67 140/83 01/17/20 08:32 67 140/83 01/17/20 08:00 97.2 67 20 140/83 (102) 98 01/17/20 04:00 59 01/17/20 04:00 97.9 62 18 140/75 (96) 98 01/17/20 00:00 60 01/17/20 00:00 97.6 68 17 138/81 (100) 100 01/16/20 21:32 64 142/78 01/16/20 21:00 Nasal Cannula 2.0 01/16/20 20:06 100 Nasal Cannula 2.0 28 01/16/20 20:00 76 01/16/20 20:00 97.4 64 18 142/78 (99) 100 01/16/20 17:13 170/95 01/16/20 16:00 97.0 73 20 151/95 (113) 96 01/16/20 16:00 77 01/16/20 12:00 75 01/16/20 12:00 96.7 73 18 149/92 (111) 97 Intake and Output 01/16/20 01/17/20 19:00 07:00 Intake Total 360 ml Output Total 650 ml 1200 ml Balance -290 ml -1200 ml Intake Oral 360 ml Output Urine Total 650 ml 1200 ml # Voids 2 2 # Bowel Movements 1 1 Objective WDWN NAD reduced breath sounds bilaterally without rhonchi or wheeze [id number] without MRG NABS nontender no HSM no CCE confused and weak Current Medications Medications (Trade) Dose Ordered Sig/Wayne Route PRN Reason Start Time Stop Time Status Last Admin Dose Admin Acetaminophen (Tylenol) 650 mg Q4H PRN ORAL Mild Pain (Pain Scale 1-3) 01/12/20 20:45 02/11/20 20:44 Amlodipine Besylate (Norvasc) 10 mg DAILY ORAL 01/16/20 09:00 02/15/20 08:59 01/17/20 08:32 Aspirin (ASA) 81 mg DAILY ORAL 01/13/20 09:00 02/27/20 08:59 01/17/20 08:31 Clonidine HCl (Catapres Tab) 0.1 mg Q4H PRN ORAL For High Blood Pressure 01/14/20 13:30 04/13/20 13:29 01/16/20 17:13 Hydroxychloroquine Sulfate (Plaquenil) 200 mg BID ORAL 01/14/20 18:00 01/18/20 09:01 01/17/20 08:31 Labetalol HCl (Normodyne) 200 mg Q12HR ORAL 01/17/20 09:00 02/16/20 08:59 01/17/20 08:32 Latanoprost (Xalatan) 1 drop BEDTIME BOTH EYES 01/13/20 01:00 02/12/20 00:59 01/16/20 21:31 Ondansetron HCl (Zofran) 4 mg EVERY 4 HOURS PRN IVP Nausea & Vomiting 01/12/20 20:45 02/11/20 20:44 Gustavo Jorgensen MD Jan 17, 2020 10:45
[2020-01-17 12:00] VITALS: BP 129/79
--- NOTE | 2020-01-17 12:50 | General Progress Note ---
Assessment/Plan Problem List: (1) UTI (urinary tract infection) ICD Codes: N39.0 - Urinary tract infection, site not specified SNOMED: 89234567 (2) Dehydration ICD Codes: E86.0 - Dehydration SNOMED: 14312161 (3) Fever ICD Codes: R50.9 - Fever, unspecified SNOMED: 484885918 (4) CAD (coronary artery disease) ICD Codes: I25.10 - Atherosclerotic heart disease of [place] coronary artery without angina pectoris SNOMED: 86900761 (5) Fever of unknown origin ICD Codes: R50.9 - Fever, unspecified SNOMED: 1230639 (6) COVID-19 ICD Codes: U07.1 - COVID-19 SNOMED: 667164681 (7) Uncontrolled diabetes mellitus ICD Codes: E11.9 - Type 2 diabetes mellitus without complications SNOMED: 286687148 (8) Pneumonia ICD Codes: J18.9 - Pneumonia, unspecified organism SNOMED: 350424453 (9) Sepsis ICD Codes: A41.9 - Sepsis, unspecified organism SNOMED: 48346941 Status: stable Assessment/Plan: Continue antibiotics per ID recommendations. Supplemental oxygen to keep sats greater than 92%. Monitor lytes- replace as needed Aspiration precautions. monitor bp and titrate as needed. dvt and stress ulcer prophylaxis Subjective ROS Limited/Unobtainable: Yes Constitutional: Reports: malaise, weakness HEENT: Reports: no symptoms Cardiovascular: Reports: no symptoms Respiratory: Reports: cough, shortness of breath Gastrointestinal/Abdominal: Reports: no symptoms Genitourinary: Reports: no symptoms Neurologic/Psychiatric: Reports: no symptoms Endocrine: Reports: no symptoms Hematologic/Lymphatic: Reports: no symptoms Allergies: Coded Allergies: No Known Allergies (Unverified , 08/16/14) All Systems: reviewed and negative except above Subjective No overnight events. Currently resting. O2 saturation remained stable on 2 L nasal cannula. Completed hydroxychloroquine yesterday. Objective Last 24 Hour Vital Signs Date Time Temp Pulse Resp B/P (MAP) Pulse Ox O2 Delivery O2 Flow Rate FiO2 01/17/20 09:00 Nasal Cannula 2.0 01/17/20 08:32 67 140/83 01/17/20 08:32 67 140/83 01/17/20 08:00 62 01/17/20 08:00 97.2 67 20 140/83 (102) 98 01/17/20 04:00 59 01/17/20 04:00 97.9 62 18 140/75 (96) 98 01/17/20 00:00 60 01/17/20 00:00 97.6 68 17 138/81 (100) 100 01/16/20 21:32 64 142/78 01/16/20 21:00 Nasal Cannula 2.0 01/16/20 20:06 100 Nasal Cannula 2.0 28 01/16/20 20:00 76 01/16/20 20:00 97.4 64 18 142/78 (99) 100 01/16/20 17:13 170/95 01/16/20 16:00 97.0 73 20 151/95 (113) 96 01/16/20 16:00 77 Intake and Output 01/16/20 01/17/20 19:00 07:00 Intake Total 360 ml Output Total 650 ml 1200 ml Balance -290 ml -1200 ml Intake Oral 360 ml Output Urine Total 650 ml 1200 ml # Voids 2 2 # Bowel Movements 1 1 Height (Feet): 5 Height (Inches): 7.00 Weight (Pounds): 170 Objective General Appearance: WD/WN, alert Neck: supple Cardiovascular: normal rate, regular rhythm Respiratory/Chest: chest wall non-tender, lungs clear, normal breath sounds Abdomen: normal bowel sounds, non tender, soft, no organomegaly Edema: no edema noted Arm (L), no edema noted Arm (R), no edema noted Leg (L), no edema noted Leg (R), no edema noted Pedal (L), no edema noted Pedal (R), no edema noted Generalized Eliud Lizama MD Jan 17, 2020 12:50
--- NOTE | 2020-01-17 13:23 | Surgery Progress Note ---
Surgery Progress Note Subjective Additional Comments on abx no acute events vitals okay exam unchanged Objective Last 24 Hour Vital Signs Date Time Temp Pulse Resp B/P (MAP) Pulse Ox O2 Delivery O2 Flow Rate FiO2 01/17/20 12:00 97.2 63 20 129/79 (96) 99 01/17/20 09:00 Nasal Cannula 2.0 01/17/20 08:32 67 140/83 01/17/20 08:32 67 140/83 01/17/20 08:00 62 01/17/20 08:00 97.2 67 20 140/83 (102) 98 01/17/20 04:00 59 01/17/20 04:00 97.9 62 18 140/75 (96) 98 01/17/20 00:00 60 01/17/20 00:00 97.6 68 17 138/81 (100) 100 01/16/20 21:32 64 142/78 01/16/20 21:00 Nasal Cannula 2.0 01/16/20 20:06 100 Nasal Cannula 2.0 28 01/16/20 20:00 76 01/16/20 20:00 97.4 64 18 142/78 (99) 100 01/16/20 17:13 170/95 01/16/20 16:00 97.0 73 20 151/95 (113) 96 01/16/20 16:00 77 I&O Intake and Output 01/16/20 01/17/20 19:00 07:00 Intake Total 360 ml Output Total 650 ml 1200 ml Balance -290 ml -1200 ml Intake Oral 360 ml Output Urine Total 650 ml 1200 ml # Voids 2 2 # Bowel Movements 1 1 Dressing: saturated Wound: clean Cardiovascular: RSR Respiratory: decreased breath sounds Abdomen: soft, non-tender, present bowel sounds Extremities: no tenderness, no cyanosis Plan Problems: (1) COVID-19 Assessment & Plan: positive all precautions taken (2) UTI (urinary tract infection) (3) Dehydration (4) Fever (5) Hematuria (6) CAD (coronary artery disease) (7) Fever of unknown origin (8) Proteinuria (9) Malnutrition of moderate degree Assessment & Plan: DAILY ESTIMATED NEEDS: Needs based on cardiac, wound, DM/ 65kg 25-30 kcals/kg 7812-4137 total kcals 1.25-1.5 g protein/kg 81-98 g total protein 25-30 mL/kg 4273-6201 total fluid mLs NUTRITION DIAGNOSIS: * Swallowing difficulty R/T dysphagia, h/o CVA as evidenced by pt on liquify pureed, NTL per PRODUCT DEVELOPMENT SPECIALIST rec. CURRENT DIET:Cardiac liq puree w/ NTL PO DIET RECOMMENDATIONS: Low na diet/ texture per PRODUCT DEVELOPMENT SPECIALIST + Glucerna BID ADDITIONAL RECOMMENDATIONS: * Calibrated bedscale wt for accurate CBW (143# per SNF) * Add GLUCERNA BID w/ meals w/ variable po * Wound care: as tolerated SATYA BID + Vit C 250mg daily * Monitor BGs closely, rec NISS for coverage * Consider appetite stimulant * Consult RD if temp non oral feeds are part of POC * Liberalized Low Na diet; rec CCHO w/ consistent po intake >50% (10) Sepsis (11) Sepsis Assessment & Plan: Leukocytosis, febrile covid positive , on support evaluated and noted to have presented on admission with an open Sacral DTPI Base of wound is purple with small opening at sacrococcygeal area. Hyperpigmentation noted to cleft of buttocks /perianal area. considered as possible infection. unlikely uti, cxr okay on abx as per ID Apply Moisture Barrier Paste to Sacrum. Cover with Optifoam drsg. Change every 3 days and prn. Apply Moisture Barrier Paste to cleft of buttocks and scrotum with each incontinence care. Apply Cavilon Skin Barrier to both heels. Cover each heel with Optifoam drsg. Change every 7 days and prn. Reposition at least every 2hours or as tolerated. Off-load heels with pillow. APM/ERASMO Mattress overlay. cont current care stable (12) Pneumonia (13) Uncontrolled diabetes mellitus Kristopher Ayala Jan 17, 2020 13:23
[2020-01-17 16:00] VITALS: BP 142/82
--- NOTE | 2020-01-17 17:41 | NUR ---
NURSE NOTES: OK PER DR CASTAÑEDA TO TX TO MED SURG
--- NOTE | 2020-01-17 19:28 | NUR ---
HAND-OFF: Report given to Hipolito QUINN. Pt resting in bed, no distress noted
[2020-01-17 20:00] VITALS: BP 166/79
--- NOTE | 2020-01-17 20:00 | NUR ---
NURSE NOTES: Patient received in bed asleep, easily arousable. IV is intact, On condom catheter. No acute distress at this time. On o2 via NC without shortness of breath. Bed alarm on, Fall and aspiration risk precautions maintained. Will continue to closely monitor.
[2020-01-17] MEDS: Latanoprost 0.005% Opth 2.5ml Soln BOTH EYES SCH (21:34)
[2020-01-18] VITALS: BP 156/83
--- NOTE | 2020-01-18 00:45 | Progress Note ---
DATE: 01/17/2020 CARDIOLOGY PROGRESS NOTE SUBJECTIVE: The patient remains with congestion, hypoxia, and shortness of breath. He is on low-flow nasal oxygen. Blood pressure parameters are slightly better today. PHYSICAL EXAMINATION: VITAL SIGNS: Blood pressure 140/83, pulse 67, respirations 20, afebrile. LUNGS: Coarse breath sounds. Few rhonchi. CARDIAC: Regular rhythm and rate. Normal S1, S2 with a fourth heart sound. ABDOMEN: Soft. EXTREMITIES: No edema. QTc interval is less than 500 millisecond. IMPRESSION: 1. COVID-19 upper respiratory infection/pneumonia. 2. Ischemic cardiomyopathy. 3. Urinary tract infection. 4. Dehydration, corrected. 5. Acute on chronic diastolic congestive heart failure, clinically compensated. 6. Acute myocardial ischemia, resolved. 7. Hypertensive heart disease with slight improvement in blood pressure control. PLAN: 1. Maintenance hydration. 2. Adjust fluid rate based on clinical parameters. 3. Continue beta-janis. 4. Maintain hydroxychloroquine for 5-day course. 5. Cardiac monitoring to assess for signs of QTc prolongation, nasal oxygen, and respiratory hygiene. 6. Continued anti-platelet therapy long-term. Vishal Drummond M.D. DR: Freya JOB#: [id number] CC:
[2020-01-18 04:00] VITALS: BP 171/85
[2020-01-18 06:37] LABS: BASOPHILS % (AUTO) 0.4 % (0.0-2.0); EOSINOPHILS % (AUTO) 0.9 % (0.0-3.0); HEMATOCRIT 41.1 % (42.0-52.0); HEMOGLOBIN 14.7 G/DL (14.2-18.0); LYMPHOCYTES % (AUTO) 10.7 % (20.0-45.0); MEAN CORPUSCULAR VOLUME 90 FL (80-99); MONOCYTES % (AUTO) 4.3 % (1.0-10.0); NEUTROPHILS % (AUTO) 83.7 % (45.0-75.0); PLATELET COUNT 216 K/UL (150-450); RED BLOOD COUNT 4.56 M/UL (4.70-6.10); RED CELL DISTRIBUTION WIDTH 11.2 % (11.6-14.8); WHITE BLOOD COUNT 10.9 K/UL (4.8-10.8)
[2020-01-18 07:06] LABS: ALANINE AMINOTRANSFERASE 26 U/L (12-78); ALBUMIN 3.1 G/DL (3.4-5.0); ALKALINE PHOSPHATASE 54 U/L (46-116); ANION GAP 10 mmol/L (5-15); ASPARTATE AMINO TRANSFERASE 16 U/L (15-37); BILIRUBIN,TOTAL 0.6 MG/DL (0.2-1.0); BLOOD UREA NITROGEN 10 mg/dL (7-18); CALCIUM 8.9 MG/DL (8.5-10.1); CARBON DIOXIDE 27 MMOL/L (21-32); CHLORIDE 104 MMOL/L (98-107); CHOLESTEROL 202 MG/DL (< 200); CREATININE 0.7 MG/DL (0.55-1.30); HDL CHOLESTEROL 44 MG/DL (40-60); POTASSIUM 3.5 MMOL/L (3.5-5.1); SODIUM 141 MMOL/L (136-145); TRIGLYCERIDES 180 MG/DL (30-150)
--- NOTE | 2020-01-18 07:33 | NUR ---
HAND-OFF: Report given to Tiffany QUINN.
--- NOTE | 2020-01-18 07:35 | NUR ---
NURSE NOTES: Received report from Ana/RN, Patient is asleep, lying semi-decker, resting comfortably. On 2L Nasal canula, No distress/SOB noted. campus monitor in place. IV on Right FA, Saline locked, patent, and asymptomatic. Follows simple commands, Shante pain at this time. Condom cath draining well to gravity. Bed in low position and locked, Bad alarm engaged, side- rails up x3, Call light within reach, Encouraged to use call light when needed. Will continue plan of care.
[2020-01-18 08:00] VITALS: BP 140/78
[2020-01-18] MEDS ORDERED: Ascorbic Acid 500mg tab ORAL SCH (09:00)
--- NOTE | 2020-01-18 09:24 | Surgery Progress Note ---
Surgery Progress Note Subjective Additional Comments no acute events comfortable resting labs noted. wbc mildly elevated micro reviewed off hydroxychlo Objective Last 24 Hour Vital Signs Date Time Temp Pulse Resp B/P (MAP) Pulse Ox O2 Delivery O2 Flow Rate FiO2 01/18/20 08:00 96.8 65 18 140/78 (98) 100 01/18/20 04:05 171/85 01/18/20 04:00 98.2 58 16 171/85 (113) 97 01/18/20 00:00 98.1 62 14 156/83 (107) 98 01/17/20 21:34 60 166/79 01/17/20 21:34 166/79 01/17/20 21:00 Nasal Cannula 2.0 01/17/20 20:35 99 Nasal Cannula 2.0 28 01/17/20 20:00 98.2 60 18 166/79 (108) 99 01/17/20 16:00 97.3 69 20 142/82 (102) 99 01/17/20 16:00 66 01/17/20 12:00 97.2 63 20 129/79 (96) 99 01/17/20 12:00 57 I&O Intake and Output 01/17/20 01/18/20 19:00 07:00 Intake Total 960 ml 200 ml Output Total 1300 ml 800 ml Balance -340 ml -600 ml Intake Oral 960 ml 200 ml Output Urine Total 1300 ml 800 ml # Bowel Movements 1 Dressing: saturated Wound: clean Cardiovascular: RSR Respiratory: decreased breath sounds Abdomen: soft, non-tender, present bowel sounds Extremities: no tenderness, no cyanosis Laboratory Tests Test 01/18/20 05:00 White Blood Count 10.9 K/UL (4.8-10.8) H Red Blood Count 4.56 M/UL (4.70-6.10) L Hemoglobin 14.7 G/DL (14.2-18.0) Hematocrit 41.1 % (42.0-52.0) L Mean Corpuscular Volume 90 FL (80-99) Mean Corpuscular Hemoglobin 32.2 PG (27.0-31.0) H Mean Corpuscular Hemoglobin Concent 35.8 G/DL (32.0-36.0) Red Cell Distribution Width 11.2 % (11.6-14.8) L Platelet Count 216 K/UL (150-450) Mean Platelet Volume 5.0 FL (6.5-10.1) L Neutrophils (%) (Auto) 83.7 % (45.0-75.0) H Lymphocytes (%) (Auto) 10.7 % (20.0-45.0) L Monocytes (%) (Auto) 4.3 % (1.0-10.0) Eosinophils (%) (Auto) 0.9 % (0.0-3.0) Basophils (%) (Auto) 0.4 % (0.0-2.0) Sodium Level 141 MMOL/L (136-145) Potassium Level 3.5 MMOL/L (3.5-5.1) Chloride Level 104 MMOL/L (98-107) Carbon Dioxide Level 27 MMOL/L (21-32) Anion Gap 10 mmol/L (5-15) Blood Urea Nitrogen 10 mg/dL (7-18) Creatinine 0.7 MG/DL (0.55-1.30) Estimat Glomerular Filtration Rate > 60 mL/min (>60) Glucose Level 184 MG/DL (74-106) H Calcium Level 8.9 MG/DL (8.5-10.1) Magnesium Level 2.0 MG/DL (1.8-2.4) Total Bilirubin 0.6 MG/DL (0.2-1.0) Aspartate Amino Transf (AST/SGOT) 16 U/L (15-37) Alanine Aminotransferase (ALT/SGPT) 26 U/L (12-78) Alkaline Phosphatase 54 U/L (46-116) Total Protein 6.2 G/DL (6.4-8.2) L Albumin 3.1 G/DL (3.4-5.0) L Globulin 3.1 g/dL Albumin/Globulin Ratio 1.0 (1.0-2.7) Triglycerides Level 180 MG/DL (30-150) H Cholesterol Level 202 MG/DL (< 200) H LDL Cholesterol 109 mg/dL (<100) H HDL Cholesterol 44 MG/DL (40-60) Cholesterol/HDL Ratio 4.6 (3.3-4.4) H Plan Problems: (1) COVID-19 Assessment & Plan: positive all precautions taken (2) UTI (urinary tract infection) (3) Dehydration (4) Fever (5) Hematuria (6) CAD (coronary artery disease) (7) Fever of unknown origin (8) Proteinuria (9) Malnutrition of moderate degree Assessment & Plan: DAILY ESTIMATED NEEDS: Needs based on cardiac, wound, DM/ 65kg 25-30 kcals/kg 4818-7300 total kcals 1.25-1.5 g protein/kg 81-98 g total protein 25-30 mL/kg 3416-0542 total fluid mLs NUTRITION DIAGNOSIS: * Swallowing difficulty R/T dysphagia, h/o CVA as evidenced by pt on liquify pureed, NTL per PELLETIZER rec. CURRENT DIET:Cardiac liq puree w/ NTL PO DIET RECOMMENDATIONS: Low na diet/ texture per PELLETIZER + Glucerna BID ADDITIONAL RECOMMENDATIONS: * Calibrated bedscale wt for accurate CBW (143# per SNF) * Add GLUCERNA BID w/ meals w/ variable po * Wound care: as tolerated SATYA BID + Vit C 250mg daily * Monitor BGs closely, rec NISS for coverage * Consider appetite stimulant * Consult RD if temp non oral feeds are part of POC * Liberalized Low Na diet; rec CCHO w/ consistent po intake >50% (10) Sepsis (11) Sepsis Assessment & Plan: Leukocytosis, febrile covid positive , on support evaluated and noted to have presented on admission with an open Sacral DTPI Base of wound is purple with small opening at sacrococcygeal area. Hyperpigmentation noted to cleft of buttocks /perianal area. considered as possible infection. unlikely uti, cxr okay on abx as per ID Apply Moisture Barrier Paste to Sacrum. Cover with Optifoam drsg. Change every 3 days and prn. Apply Moisture Barrier Paste to cleft of buttocks and scrotum with each incontinence care. Apply Cavilon Skin Barrier to both heels. Cover each heel with Optifoam drsg. Change every 7 days and prn. Reposition at least every 2hours or as tolerated. Off-load heels with pillow. APM/ERASMO Mattress overlay. cont current care stable (12) Pneumonia (13) Uncontrolled diabetes mellitus Kristopher yAala Jan 18, 2020 09:24
[2020-01-18] MEDS: Aspirin Baby 81mg ORAL SCH (09:36)
--- NOTE | 2020-01-18 10:41 | NUR ---
RADIOLOGY DEPT., CHEST X-RAY DONE.-P.DYE
--- NOTE | 2020-01-18 10:45 | Infectious Diseases Prog Note ---
Assessment/Plan Assessment/Plan antibiotics none A 1. Covid 19 pneumonia s.p hydroxychloroquine rx 2. coag neg staph in blood likely contaminated 3. diabetes mellitus 4. hypertension 5. CVA 6. leucocytosis resolved P 1. observe off antibiotics 2. continue isolation Subjective ROS Limited/Unobtainable: Yes Allergies: Coded Allergies: No Known Allergies (Unverified , 08/16/14) Objective Vital Signs Last 24 Hour Vital Signs Date Time Temp Pulse Resp B/P (MAP) Pulse Ox O2 Delivery O2 Flow Rate FiO2 01/18/20 09:36 65 140/78 01/18/20 09:35 65 140/78 01/18/20 08:00 96.8 65 18 140/78 (98) 100 01/18/20 04:05 171/85 01/18/20 04:00 98.2 58 16 171/85 (113) 97 01/18/20 00:00 98.1 62 14 156/83 (107) 98 01/17/20 21:34 60 166/79 01/17/20 21:34 166/79 01/17/20 21:00 Nasal Cannula 2.0 01/17/20 20:35 99 Nasal Cannula 2.0 28 01/17/20 20:00 98.2 60 18 166/79 (108) 99 01/17/20 16:00 97.3 69 20 142/82 (102) 99 01/17/20 16:00 66 01/17/20 12:00 97.2 63 20 129/79 (96) 99 01/17/20 12:00 57 Height (Feet): 5 Height (Inches): 7.00 Weight (Pounds): 146 Laboratory Tests Test 01/18/20 05:00 White Blood Count 10.9 K/UL (4.8-10.8) H Red Blood Count 4.56 M/UL (4.70-6.10) L Hemoglobin 14.7 G/DL (14.2-18.0) Hematocrit 41.1 % (42.0-52.0) L Mean Corpuscular Volume 90 FL (80-99) Mean Corpuscular Hemoglobin 32.2 PG (27.0-31.0) H Mean Corpuscular Hemoglobin Concent 35.8 G/DL (32.0-36.0) Red Cell Distribution Width 11.2 % (11.6-14.8) L Platelet Count 216 K/UL (150-450) Mean Platelet Volume 5.0 FL (6.5-10.1) L Neutrophils (%) (Auto) 83.7 % (45.0-75.0) H Lymphocytes (%) (Auto) 10.7 % (20.0-45.0) L Monocytes (%) (Auto) 4.3 % (1.0-10.0) Eosinophils (%) (Auto) 0.9 % (0.0-3.0) Basophils (%) (Auto) 0.4 % (0.0-2.0) Sodium Level 141 MMOL/L (136-145) Potassium Level 3.5 MMOL/L (3.5-5.1) Chloride Level 104 MMOL/L (98-107) Carbon Dioxide Level 27 MMOL/L (21-32) Anion Gap 10 mmol/L (5-15) Blood Urea Nitrogen 10 mg/dL (7-18) Creatinine 0.7 MG/DL (0.55-1.30) Estimat Glomerular Filtration Rate > 60 mL/min (>60) Glucose Level 184 MG/DL (74-106) H Calcium Level 8.9 MG/DL (8.5-10.1) Magnesium Level 2.0 MG/DL (1.8-2.4) Total Bilirubin 0.6 MG/DL (0.2-1.0) Aspartate Amino Transf (AST/SGOT) 16 U/L (15-37) Alanine Aminotransferase (ALT/SGPT) 26 U/L (12-78) Alkaline Phosphatase 54 U/L (46-116) Total Protein 6.2 G/DL (6.4-8.2) L Albumin 3.1 G/DL (3.4-5.0) L Globulin 3.1 g/dL Albumin/Globulin Ratio 1.0 (1.0-2.7) Triglycerides Level 180 MG/DL (30-150) H Cholesterol Level 202 MG/DL (< 200) H LDL Cholesterol 109 mg/dL (<100) H HDL Cholesterol 44 MG/DL (40-60) Cholesterol/HDL Ratio 4.6 (3.3-4.4) H Current Medications Medications (Trade) Dose Ordered Sig/Wayne Route PRN Reason Start Time Stop Time Status Last Admin Dose Admin Acetaminophen (Tylenol) 650 mg Q4H PRN ORAL Mild Pain (Pain Scale 1-3) 01/12/20 20:45 02/11/20 20:44 Amlodipine Besylate (Norvasc) 10 mg DAILY ORAL 01/16/20 09:00 02/15/20 08:59 01/18/20 09:35 Ascorbic Acid (Vitamin C) 250 mg DAILY ORAL 01/18/20 09:00 02/17/20 08:59 01/18/20 09:36 Aspirin (ASA) 81 mg DAILY ORAL 01/13/20 09:00 02/27/20 08:59 01/18/20 09:36 Clonidine HCl (Catapres Tab) 0.1 mg Q4H PRN ORAL For High Blood Pressure 01/14/20 13:30 04/13/20 13:29 01/18/20 04:05 Labetalol HCl (Normodyne) 200 mg Q12HR ORAL 01/17/20 09:00 02/16/20 08:59 01/18/20 09:36 Latanoprost (Xalatan) 1 drop BEDTIME BOTH EYES 01/13/20 01:00 02/12/20 00:59 01/17/20 21:34 Ondansetron HCl (Zofran) 4 mg EVERY 4 HOURS PRN IVP Nausea & Vomiting 01/12/20 20:45 02/11/20 20:44 Radames Morales MD Jan 18, 2020 10:45
--- NOTE | 2020-01-18 10:57 | NUR ---
CASE MANAGEMENT:REVIEW 01/18/20 SI: SEPSIS D/T BACTEREMIA. AMI. COVID 19 PNEUMONIA(TESTED POSITIVE AT [facility]) 96.8 65 18 140/78 100% ON 2L/NC WBC+10.9 GLUCOSE+184 IS: VIT C PO QD LABETALOL PO Q12 NORVASC PO QD ASA PO QD : TELEMETRY STATUS DCP: FROM [facility] PLAN: MAINTAIN DROPLET PRECAUTIONS COVID TREATMENT COMPLETED RE-TEST 01/17 AND 01/18
[2020-01-18 12:00] VITALS: BP 141/80
--- NOTE | 2020-01-18 12:31 | Diagnostic Imaging Report ---
. Indication: Shortness of breath Technique: XRAY Chest 1v Comparison: 01/12/2020 Findings: Heart size and mediastinal contours are stable. Again the patient is noted to be status post median sternotomy and likely CABG. Atherosclerotic calcifications noted in the aorta. There is an development of very mild streaky opacities at the left base. No pneumothorax. A likely a nipple shadow projects over the periphery of the right lung base. There is no acute osseous abnormality. Impression: Interval development of some mild streaky opacities at the left base which may related to subsegmental atelectasis. Correlate clinically to exclude the possibility of developing infectious infiltrate.
--- NOTE | 2020-01-18 13:00 | NUR ---
NURSE NOTES: COVID Specimen collected and dropped off to Lab.
--- NOTE | 2020-01-18 13:09 | General Progress Note ---
Assessment/Plan Problem List: (1) UTI (urinary tract infection) ICD Codes: N39.0 - Urinary tract infection, site not specified SNOMED: 98347615 (2) Dehydration ICD Codes: E86.0 - Dehydration SNOMED: 77207627 (3) Fever ICD Codes: R50.9 - Fever, unspecified SNOMED: 116869779 (4) CAD (coronary artery disease) ICD Codes: I25.10 - Atherosclerotic heart disease of [place] coronary artery without angina pectoris SNOMED: 98582798 (5) Fever of unknown origin ICD Codes: R50.9 - Fever, unspecified SNOMED: 8418978 (6) COVID-19 ICD Codes: U07.1 - COVID-19 SNOMED: 156252508 (7) Uncontrolled diabetes mellitus ICD Codes: E11.9 - Type 2 diabetes mellitus without complications SNOMED: 728942638 (8) Pneumonia ICD Codes: J18.9 - Pneumonia, unspecified organism SNOMED: 018646377 (9) Sepsis ICD Codes: A41.9 - Sepsis, unspecified organism SNOMED: 97925591 Status: stable Assessment/Plan: Continue antibiotics per ID recommendations. Supplemental oxygen to keep sats greater than 92%. Monitor lytes- replace as needed Aspiration precautions. monitor bp and titrate as needed. dvt and stress ulcer prophylaxis repeat covid 19 pcr Subjective ROS Limited/Unobtainable: No Constitutional: Reports: malaise, weakness HEENT: Reports: no symptoms Cardiovascular: Reports: no symptoms Respiratory: Reports: cough, shortness of breath Gastrointestinal/Abdominal: Reports: no symptoms Genitourinary: Reports: no symptoms Neurologic/Psychiatric: Reports: no symptoms Endocrine: Reports: no symptoms Hematologic/Lymphatic: Reports: no symptoms Allergies: Coded Allergies: No Known Allergies (Unverified , 08/16/14) All Systems: reviewed and negative except above Subjective No overnight events. Currently resting. O2 saturation remained stable on 2 L nasal cannula. Completed hydroxychloroquine. cxr with "streaky" basilar opacities. eating well. no fevers Objective Last 24 Hour Vital Signs Date Time Temp Pulse Resp B/P (MAP) Pulse Ox O2 Delivery O2 Flow Rate FiO2 01/18/20 12:00 97.6 60 19 141/80 (100) 99 01/18/20 09:36 65 140/78 01/18/20 09:35 65 140/78 01/18/20 09:00 Nasal Cannula 2.0 01/18/20 08:00 96.8 65 18 140/78 (98) 100 01/18/20 04:05 171/85 01/18/20 04:00 98.2 58 16 171/85 (113) 97 01/18/20 00:00 98.1 62 14 156/83 (107) 98 01/17/20 21:34 60 166/79 01/17/20 21:34 166/79 01/17/20 21:00 Nasal Cannula 2.0 01/17/20 20:35 99 Nasal Cannula 2.0 28 01/17/20 20:00 98.2 60 18 166/79 (108) 99 01/17/20 16:00 97.3 69 20 142/82 (102) 99 01/17/20 16:00 66 Intake and Output 01/17/20 01/18/20 19:00 07:00 Intake Total 960 ml 200 ml Output Total 1300 ml 800 ml Balance -340 ml -600 ml Intake Oral 960 ml 200 ml Output Urine Total 1300 ml 800 ml # Bowel Movements 1 Laboratory Tests 01/18/20 05:00: White Blood Count 10.9H, Red Blood Count 4.56L, Hemoglobin 14.7, Hematocrit 41.1L, Mean Corpuscular Volume 90, Mean Corpuscular Hemoglobin 32.2H, Mean Corpuscular Hemoglobin Concent 35.8, Red Cell Distribution Width 11.2L, Platelet Count 216, Mean Platelet Volume 5.0L, Neutrophils (%) (Auto) 83.7H, Lymphocytes (%) (Auto) 10.7L, Monocytes (%) (Auto) 4.3, Eosinophils (%) (Auto) 0.9, Basophils (%) (Auto) 0.4, Sodium Level 141, Potassium Level 3.5, Chloride Level 104, Carbon Dioxide Level 27, Anion Gap 10, Blood Urea Nitrogen 10, Creatinine 0.7, Estimat Glomerular Filtration Rate > 60, Glucose Level 184H, Calcium Level 8.9, Magnesium Level 2.0, Total Bilirubin 0.6, Aspartate Amino Transf (AST/SGOT) 16, Alanine Aminotransferase (ALT/SGPT) 26, Alkaline Phosphatase 54, Total Protein 6.2L, Albumin 3.1L, Globulin 3.1, Albumin/ Globulin Ratio 1.0, Triglycerides Level 180H, Cholesterol Level 202H, LDL Cholesterol 109H, HDL Cholesterol 44, Cholesterol/HDL Ratio 4.6H Height (Feet): 5 Height (Inches): 7.00 Weight (Pounds): 146 Objective General Appearance: WD/WN, alert Neck: supple Cardiovascular: normal rate, regular rhythm Respiratory/Chest: chest wall non-tender, lungs clear, normal breath sounds Abdomen: normal bowel sounds, non tender, soft, no organomegaly Edema: no edema noted Arm (L), no edema noted Arm (R), no edema noted Leg (L), no edema noted Leg (R), no edema noted Pedal (L), no edema noted Pedal (R), no edema noted Generalized Eliud Lizama MD Jan 18, 2020 13:09
[2020-01-18 16:00] VITALS: BP 127/73
--- NOTE | 2020-01-18 16:47 | Pulmonology Progress Note ---
Assessment/Plan Assessment/Plan ASSESSMENT: COVID-19 pneumonia, respiratory failure, acute SD hypertension, diabetes, hypothyroidism, hypernatremia protein calorie malnutrition bactermia PLAN respiratory noted and care reviewed oxygen as needed; low flow; keep sats >92% ID review and recommendations monitor for change aspiration precautions review and monitor for fevers or deterioration impression, plan, and exam edited and reviewed in detail care discussed with RN. Subjective ROS Limited/Unobtainable: Yes Allergies: Coded Allergies: No Known Allergies (Unverified , 08/16/14) Subjective overnight events reviewed no distress on oxygen low flow MD care reviewed Objective Last 24 Hour Vital Signs Date Time Temp Pulse Resp B/P (MAP) Pulse Ox O2 Delivery O2 Flow Rate FiO2 01/18/20 12:00 97.6 60 19 141/80 (100) 99 01/18/20 09:36 65 140/78 01/18/20 09:35 65 140/78 01/18/20 09:00 Nasal Cannula 2.0 01/18/20 08:00 96.8 65 18 140/78 (98) 100 01/18/20 04:05 171/85 01/18/20 04:00 98.2 58 16 171/85 (113) 97 01/18/20 00:00 98.1 62 14 156/83 (107) 98 01/17/20 21:34 60 166/79 01/17/20 21:34 166/79 01/17/20 21:00 Nasal Cannula 2.0 01/17/20 20:35 99 Nasal Cannula 2.0 28 01/17/20 20:00 98.2 60 18 166/79 (108) 99 Intake and Output 01/17/20 01/18/20 19:00 07:00 Intake Total 960 ml 200 ml Output Total 1300 ml 800 ml Balance -340 ml -600 ml Intake Oral 960 ml 200 ml Output Urine Total 1300 ml 800 ml # Bowel Movements 1 Objective WDWN NAD reduced breath sounds bilaterally without rhonchi or wheeze [id number] without MRG NABS nontender no HSM no CCE confused and weak Laboratory Tests 01/18/20 05:00: White Blood Count 10.9H, Red Blood Count 4.56L, Hemoglobin 14.7, Hematocrit 41.1L, Mean Corpuscular Volume 90, Mean Corpuscular Hemoglobin 32.2H, Mean Corpuscular Hemoglobin Concent 35.8, Red Cell Distribution Width 11.2L, Platelet Count 216, Mean Platelet Volume 5.0L, Neutrophils (%) (Auto) 83.7H, Lymphocytes (%) (Auto) 10.7L, Monocytes (%) (Auto) 4.3, Eosinophils (%) (Auto) 0.9, Basophils (%) (Auto) 0.4, Sodium Level 141, Potassium Level 3.5, Chloride Level 104, Carbon Dioxide Level 27, Anion Gap 10, Blood Urea Nitrogen 10, Creatinine 0.7, Estimat Glomerular Filtration Rate > 60, Glucose Level 184H, Calcium Level 8.9, Magnesium Level 2.0, Total Bilirubin 0.6, Aspartate Amino Transf (AST/SGOT) 16, Alanine Aminotransferase (ALT/SGPT) 26, Alkaline Phosphatase 54, Total Protein 6.2L, Albumin 3.1L, Globulin 3.1, Albumin/ Globulin Ratio 1.0, Triglycerides Level 180H, Cholesterol Level 202H, LDL Cholesterol 109H, HDL Cholesterol 44, Cholesterol/HDL Ratio 4.6H Current Medications Medications (Trade) Dose Ordered Sig/Wayne Route PRN Reason Start Time Stop Time Status Last Admin Dose Admin Acetaminophen (Tylenol) 650 mg Q4H PRN ORAL Mild Pain (Pain Scale 1-3) 01/12/20 20:45 02/11/20 20:44 Amlodipine Besylate (Norvasc) 10 mg DAILY ORAL 01/16/20 09:00 02/15/20 08:59 01/18/20 09:35 Ascorbic Acid (Vitamin C) 250 mg DAILY ORAL 01/18/20 09:00 02/17/20 08:59 01/18/20 09:36 Aspirin (ASA) 81 mg DAILY ORAL 01/13/20 09:00 02/27/20 08:59 01/18/20 09:36 Clonidine HCl (Catapres Tab) 0.1 mg Q4H PRN ORAL For High Blood Pressure 01/14/20 13:30 04/13/20 13:29 01/18/20 04:05 Labetalol HCl (Normodyne) 200 mg Q12HR ORAL 01/17/20 09:00 02/16/20 08:59 01/18/20 09:36 Latanoprost (Xalatan) 1 drop BEDTIME BOTH EYES 01/13/20 01:00 02/12/20 00:59 01/17/20 21:34 Ondansetron HCl (Zofran) 4 mg EVERY 4 HOURS PRN IVP Nausea & Vomiting 01/12/20 20:45 02/11/20 20:44 Gustavo Jorgensen MD Jan 18, 2020 16:47
--- NOTE | 2020-01-18 19:15 | NUR ---
HAND-OFF: Report given to Kenyon/RN, Patient is in stable condition, Endorsed plan of care.
--- NOTE | 2020-01-18 19:25 | NUR ---
NURSE NOTES: Pt received from KAI Allen alert and oriented x1. IV site on R fa asymptomatic and patent on R fa 20g. Bed in lowest position, call light and belongings within reach.
[2020-01-18 20:00] VITALS: BP 114/66
[2020-01-18] MEDS: Latanoprost 0.005% Opth 2.5ml Soln BOTH EYES SCH (20:55)
--- NOTE | 2020-01-18 23:59 | NUR ---
TRANSFER TO FLOOR: Patient transferred to [facility], per Dr. Zepeda. Report given to KAI [place]. No belongings with patient. Family and or S/O informed of transfer.
[2020-01-19] VITALS: BP 137/61
--- NOTE | 2020-01-19 00:15 | NUR ---
NURSE NOTES: Received patient from via hospital bed. Nasal cannula 2L on. Patient awake, able to follow commands. Wound photo taken. VSS.
[2020-01-19 04:00] VITALS: BP 126/65
[2020-01-19 05:20] LABS: BASOPHILS % (AUTO) 0.6 % (0.0-2.0); EOSINOPHILS % (AUTO) 1.6 % (0.0-3.0); HEMATOCRIT 36.2 % (42.0-52.0); HEMOGLOBIN 12.9 G/DL (14.2-18.0); MEAN CORPUSCULAR VOLUME 90 FL (80-99); MONOCYTES % (AUTO) 7.3 % (1.0-10.0); NEUTROPHILS % (AUTO) 80.6 % (45.0-75.0); PLATELET COUNT 204 K/UL (150-450); RED BLOOD COUNT 4.04 M/UL (4.70-6.10); RED CELL DISTRIBUTION WIDTH 11.2 % (11.6-14.8); WHITE BLOOD COUNT 10.4 K/UL (4.8-10.8)
[2020-01-19 05:54] LABS: ALANINE AMINOTRANSFERASE 23 U/L (12-78); ALBUMIN 2.8 G/DL (3.4-5.0); ALKALINE PHOSPHATASE 48 U/L (46-116); ANION GAP 11 mmol/L (5-15); ASPARTATE AMINO TRANSFERASE 16 U/L (15-37); BILIRUBIN,TOTAL 0.5 MG/DL (0.2-1.0); BLOOD UREA NITROGEN 10 mg/dL (7-18); CALCIUM 8.5 MG/DL (8.5-10.1); CARBON DIOXIDE 26 MMOL/L (21-32); CHLORIDE 105 MMOL/L (98-107); CREATININE 0.7 MG/DL (0.55-1.30); POTASSIUM 3.4 MMOL/L (3.5-5.1); SODIUM 142 MMOL/L (136-145)
--- NOTE | 2020-01-19 07:00 | Progress Note ---
DATE: 01/18/2020 CARDIOLOGY PROGRESS NOTE SUBJECTIVE: The patient is stable on 2 liters. He completed hydroxychloroquine therapy without any cardiac complications. Oxygen saturation 97% to 100% on 2 liters PHYSICAL EXAMINATION: VITAL SIGN: Blood pressure 140/78, pulse 65, respirations 19. LUNGS: Few rhonchi. CARDIAC: Regular rhythm rate. Normal S1, S2. ABDOMEN: Soft. EXTREMITIES: No edema. LABORATORY DATA: Chest x-ray today reveals left basilar opacity. White count 11, hemoglobin 14.7. Potassium 3.5, magnesium 2.0. IMPRESSION: 1. COVID-19 pneumonia. 2. Ischemic cardiomyopathy. 3. Hypoxia. 4. Borderline hypokalemia. PLAN: Continue hydroxychloroquine course. Continue cardiac monitoring. Additional potassium replacement. Titrate antihypertensive. Titrate oxygen. Isolation precautions. Vishal Drummond M.D. DR: KATEY JOB#: [id number] CC:
--- NOTE | 2020-01-19 07:16 | NUR ---
HAND-OFF: Report given to KAI Foreman.
--- NOTE | 2020-01-19 07:29 | General Progress Note ---
Assessment/Plan Problem List: (1) UTI (urinary tract infection) ICD Codes: N39.0 - Urinary tract infection, site not specified SNOMED: 97645330 (2) Dehydration ICD Codes: E86.0 - Dehydration SNOMED: 65569470 (3) Fever ICD Codes: R50.9 - Fever, unspecified SNOMED: 683984970 (4) CAD (coronary artery disease) ICD Codes: I25.10 - Atherosclerotic heart disease of [place] coronary artery without angina pectoris SNOMED: 66237639 (5) Fever of unknown origin ICD Codes: R50.9 - Fever, unspecified SNOMED: 1691735 (6) COVID-19 ICD Codes: U07.1 - COVID-19 SNOMED: 492701640 (7) Uncontrolled diabetes mellitus ICD Codes: E11.9 - Type 2 diabetes mellitus without complications SNOMED: 974654913 (8) Pneumonia ICD Codes: J18.9 - Pneumonia, unspecified organism SNOMED: 341740775 (9) Sepsis ICD Codes: A41.9 - Sepsis, unspecified organism SNOMED: 35565807 Status: stable Assessment/Plan: Continue antibiotics per ID recommendations. Supplemental oxygen to keep sats greater than 92%. Monitor lytes- replace as needed Aspiration precautions. monitor bp and titrate as needed. dvt and stress ulcer prophylaxis. replace k Subjective ROS Limited/Unobtainable: No Constitutional: Reports: malaise, weakness HEENT: Reports: no symptoms Cardiovascular: Reports: no symptoms Respiratory: Reports: shortness of breath Gastrointestinal/Abdominal: Reports: no symptoms Genitourinary: Reports: no symptoms Neurologic/Psychiatric: Reports: no symptoms Endocrine: Reports: no symptoms Hematologic/Lymphatic: Reports: no symptoms Allergies: Coded Allergies: No Known Allergies (Unverified , 08/16/14) All Systems: reviewed and negative except above Subjective No overnight events. on med surg. Currently resting. O2 saturation remained stable on 2 L nasal cannula. Completed hydroxychloroquine. cxr with "streaky" basilar opacities. eating well. no fevers. low k noted. Objective Last 24 Hour Vital Signs Date Time Temp Pulse Resp B/P (MAP) Pulse Ox O2 Delivery O2 Flow Rate FiO2 01/19/20 04:00 98.3 62 18 126/65 (85) 100 01/19/20 00:00 98.0 59 17 137/61 (86) 100 01/18/20 21:00 Nasal Cannula 2.0 01/18/20 20:54 65 114/66 01/18/20 20:00 97.5 62 18 114/66 (82) 99 01/18/20 17:54 99 Nasal Cannula 2.0 28 01/18/20 16:00 97.5 59 19 127/73 (91) 96 01/18/20 12:00 97.6 60 19 141/80 (100) 99 01/18/20 09:36 65 140/78 01/18/20 09:35 65 140/78 01/18/20 09:00 Nasal Cannula 2.0 01/18/20 08:00 96.8 65 18 140/78 (98) 100 Intake and Output 01/18/20 01/19/20 19:00 07:00 Intake Total 240 ml 250 ml Output Total 500 ml Balance -260 ml 250 ml Intake Oral 240 ml 250 ml Output Urine Total 500 ml # Voids 3 Laboratory Tests 01/19/20 02:30: White Blood Count 10.4, Red Blood Count 4.04L, Hemoglobin 12.9L, Hematocrit 36.2L, Mean Corpuscular Volume 90, Mean Corpuscular Hemoglobin 32.0H, Mean Corpuscular Hemoglobin Concent 35.7, Red Cell Distribution Width 11.2L, Platelet Count 204, Mean Platelet Volume 5.3L, Neutrophils (%) (Auto) 80.6H, Lymphocytes (%) (Auto) 10.0L, Monocytes (%) (Auto) 7.3, Eosinophils (%) (Auto) 1.6, Basophils (%) (Auto) 0.6, Sodium Level 142, Potassium Level 3.4L, Chloride Level 105, Carbon Dioxide Level 26, Anion Gap 11, Blood Urea Nitrogen 10, Creatinine 0.7, Estimat Glomerular Filtration Rate > 60, Glucose Level 143H, Calcium Level 8.5, Total Bilirubin 0.5, Aspartate Amino Transf (AST/SGOT) 16, Alanine Aminotransferase (ALT/SGPT) 23, Alkaline Phosphatase 48, Pro-B-Type Natriuretic Peptide 263H, Total Protein 5.6L, Albumin 2.8L, Globulin 2.8, Albumin/Globulin Ratio 1.0, Lipase 472H Height (Feet): 5 Height (Inches): 7.00 Weight (Pounds): 146 Objective General Appearance: WD/WN, alert Neck: supple Cardiovascular: normal rate, regular rhythm Respiratory/Chest: chest wall non-tender, lungs clear, normal breath sounds Abdomen: normal bowel sounds, non tender, soft, no organomegaly Edema: no edema noted Arm (L), no edema noted Arm (R), no edema noted Leg (L), no edema noted Leg (R), no edema noted Pedal (L), no edema noted Pedal (R), no edema noted Generalized Eliud Lizama MD Jan 19, 2020 07:29
[2020-01-19 08:00] VITALS: BP 164/81
--- NOTE | 2020-01-19 08:18 | NUR ---
NURSE NOTES: Patient awake, Telugu speaking; on Nasal Cannula 2 Liters, no sing of distress and shortness of breath; no sing of chest pain; IV Right For-Arm flushes well; wound dressing dry and intact; Bilateral Upper Extremity Edematous; side rails up x2, breaks engaged, bed at lowest position, bed alarm on; call light within reach; will keep monitoring.
[2020-01-19] MEDS: Ascorbic Acid 500mg tab ORAL SCH (09:13)
[2020-01-19] MEDS: Aspirin Baby 81mg ORAL SCH (09:13)
--- NOTE | 2020-01-19 09:28 | Pulmonology Progress Note ---
Assessment/Plan Assessment/Plan ASSESSMENT: COVID-19 pneumonia, respiratory failure, acute [place] hypertension, diabetes, hypothyroidism, hypernatremia protein calorie malnutrition bactermia PLAN respiratory noted and care reviewed oxygen as needed; low flow; keep sats >92% ID review and recommendations monitor as is aspiration precautions and noted congestion review and monitor for fevers or deterioration impression, plan, and exam edited and reviewed in detail care discussed with RN. Subjective Allergies: Coded Allergies: No Known Allergies (Unverified , 08/16/14) Subjective overnight events reviewed no distress on oxygen low flow and stable MD care reviewed Objective Last 24 Hour Vital Signs Date Time Temp Pulse Resp B/P (MAP) Pulse Ox O2 Delivery O2 Flow Rate FiO2 01/19/20 08:00 97.1 61 18 164/81 (108) 100 01/19/20 04:00 98.3 62 18 126/65 (85) 100 01/19/20 00:00 98.0 59 17 137/61 (86) 100 01/18/20 21:00 Nasal Cannula 2.0 01/18/20 20:54 65 114/66 01/18/20 20:00 97.5 62 18 114/66 (82) 99 01/18/20 17:54 99 Nasal Cannula 2.0 28 01/18/20 16:00 97.5 59 19 127/73 (91) 96 01/18/20 12:00 97.6 60 19 141/80 (100) 99 01/18/20 09:36 65 140/78 01/18/20 09:35 65 140/78 Intake and Output 01/18/20 01/19/20 19:00 07:00 Intake Total 240 ml 250 ml Output Total 500 ml Balance -260 ml 250 ml Intake Oral 240 ml 250 ml Output Urine Total 500 ml # Voids 3 Objective WDWN NAD reduced breath sounds bilaterally without rhonchi or wheeze [id number] without MRG NABS nontender no HSM no CCE confused and weak Laboratory Tests 01/19/20 02:30: White Blood Count 10.4, Red Blood Count 4.04L, Hemoglobin 12.9L, Hematocrit 36.2L, Mean Corpuscular Volume 90, Mean Corpuscular Hemoglobin 32.0H, Mean Corpuscular Hemoglobin Concent 35.7, Red Cell Distribution Width 11.2L, Platelet Count 204, Mean Platelet Volume 5.3L, Neutrophils (%) (Auto) 80.6H, Lymphocytes (%) (Auto) 10.0L, Monocytes (%) (Auto) 7.3, Eosinophils (%) (Auto) 1.6, Basophils (%) (Auto) 0.6, Sodium Level 142, Potassium Level 3.4L, Chloride Level 105, Carbon Dioxide Level 26, Anion Gap 11, Blood Urea Nitrogen 10, Creatinine 0.7, Estimat Glomerular Filtration Rate > 60, Glucose Level 143H, Calcium Level 8.5, Total Bilirubin 0.5, Aspartate Amino Transf (AST/SGOT) 16, Alanine Aminotransferase (ALT/SGPT) 23, Alkaline Phosphatase 48, Pro-B-Type Natriuretic Peptide 263H, Total Protein 5.6L, Albumin 2.8L, Globulin 2.8, Albumin/Globulin Ratio 1.0, Lipase 472H Current Medications Medications (Trade) Dose Ordered Sig/Wayne Route PRN Reason Start Time Stop Time Status Last Admin Dose Admin Acetaminophen (Tylenol) 650 mg Q4H PRN ORAL Mild Pain (Pain Scale 1-3) 01/19/20 00:45 02/11/20 20:44 Amlodipine Besylate (Norvasc) 10 mg DAILY ORAL 01/19/20 09:00 02/15/20 08:59 Ascorbic Acid (Vitamin C) 250 mg DAILY ORAL 01/19/20 09:00 02/17/20 08:59 01/19/20 09:13 Aspirin (ASA) 81 mg DAILY ORAL 01/19/20 09:00 02/27/20 08:59 01/19/20 09:13 Clonidine HCl (Catapres Tab) 0.1 mg Q4H PRN ORAL For High Blood Pressure 01/19/20 01:30 04/13/20 13:29 Labetalol HCl (Normodyne) 200 mg Q12HR ORAL 01/19/20 09:00 02/16/20 08:59 Latanoprost (Xalatan) 1 drop BEDTIME BOTH EYES 01/19/20 21:00 02/12/20 00:59 Ondansetron HCl (Zofran) 4 mg Q4H PRN IVP Nausea & Vomiting 01/18/20 23:43 02/17/20 23:42 Potassium Chloride (K-Dur) 40 meq ONCE ORAL 01/19/20 08:00 01/19/20 09:59 01/19/20 09:13 Gustavo Jorgensen MD Jan 19, 2020 09:28
--- NOTE | 2020-01-19 11:33 | NUR ---
DISCHARGE PLANNING CUFF FOLDER DISCUSSED COVID [address] FLOWER YESTERDAY VIA TELEPHONE ORDER GIVEN BY DR FLOWER TO RETEST FOR 01/17 AND 01/18 CUFF FOLDER ENTERED ORDERS YESTERDAY AND TODAY FOR REPEAT COVID 19 TESTING
[2020-01-19 12:00] VITALS: BP 141/71
--- NOTE | 2020-01-19 13:40 | Infectious Diseases Prog Note ---
Assessment/Plan Assessment/Plan A 1. Covid 19 pneumonia -s.p hydroxychloroquine rx 2. coag neg staph in blood likely contaminated 3. diabetes mellitus 4. hypertension 5. CVA 6. 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 observe off antibiotics 2. continue isolation Subjective ROS Limited/Unobtainable: Yes Allergies: Coded Allergies: No Known Allergies (Unverified , 08/16/14) Objective Vital Signs Last 24 Hour Vital Signs Date Time Temp Pulse Resp B/P (MAP) Pulse Ox O2 Delivery O2 Flow Rate FiO2 01/19/20 12:00 96.8 66 18 141/71 (94) 96 01/19/20 09:27 61 164/81 01/19/20 09:27 61 164/81 01/19/20 09:00 Nasal Cannula 2.0 01/19/20 08:00 97.1 61 18 164/81 (108) 100 01/19/20 04:00 98.3 62 18 126/65 (85) 100 01/19/20 00:00 98.0 59 17 137/61 (86) 100 01/18/20 21:00 Nasal Cannula 2.0 01/18/20 20:54 65 114/66 01/18/20 20:00 97.5 62 18 114/66 (82) 99 01/18/20 17:54 99 Nasal Cannula 2.0 28 01/18/20 16:00 97.5 59 19 127/73 (91) 96 Height (Feet): 5 Height (Inches): 7.00 Weight (Pounds): 146 General Appearance: no acute distress HEENT: mucous membranes moist Respiratory/Chest: lungs clear Cardiovascular: normal rate Abdomen: soft, non tender Extremities: no edema Neurologic/Psychiatric: other - sleeping Laboratory Tests Test 01/19/20 02:30 White Blood Count 10.4 K/UL (4.8-10.8) Red Blood Count 4.04 M/UL (4.70-6.10) L Hemoglobin 12.9 G/DL (14.2-18.0) L Hematocrit 36.2 % (42.0-52.0) L Mean Corpuscular Volume 90 FL (80-99) Mean Corpuscular Hemoglobin 32.0 PG (27.0-31.0) H Mean Corpuscular Hemoglobin Concent 35.7 G/DL (32.0-36.0) Red Cell Distribution Width 11.2 % (11.6-14.8) L Platelet Count 204 K/UL (150-450) Mean Platelet Volume 5.3 FL (6.5-10.1) L Neutrophils (%) (Auto) 80.6 % (45.0-75.0) H Lymphocytes (%) (Auto) 10.0 % (20.0-45.0) L Monocytes (%) (Auto) 7.3 % (1.0-10.0) Eosinophils (%) (Auto) 1.6 % (0.0-3.0) Basophils (%) (Auto) 0.6 % (0.0-2.0) Sodium Level 142 MMOL/L (136-145) Potassium Level 3.4 MMOL/L (3.5-5.1) L Chloride Level 105 MMOL/L (98-107) Carbon Dioxide Level 26 MMOL/L (21-32) Anion Gap 11 mmol/L (5-15) Blood Urea Nitrogen 10 mg/dL (7-18) Creatinine 0.7 MG/DL (0.55-1.30) Estimat Glomerular Filtration Rate > 60 mL/min (>60) Glucose Level 143 MG/DL (74-106) H Calcium Level 8.5 MG/DL (8.5-10.1) Total Bilirubin 0.5 MG/DL (0.2-1.0) Aspartate Amino Transf (AST/SGOT) 16 U/L (15-37) Alanine Aminotransferase (ALT/SGPT) 23 U/L (12-78) Alkaline Phosphatase 48 U/L (46-116) Pro-B-Type Natriuretic Peptide 263 pg/mL (0-125) H Total Protein 5.6 G/DL (6.4-8.2) L Albumin 2.8 G/DL (3.4-5.0) L Globulin 2.8 g/dL Albumin/Globulin Ratio 1.0 (1.0-2.7) Lipase 472 U/L (73-393) H Current Medications Medications (Trade) Dose Ordered Sig/Wayne Route PRN Reason Start Time Stop Time Status Last Admin Dose Admin Acetaminophen (Tylenol) 650 mg Q4H PRN ORAL Mild Pain (Pain Scale 1-3) 01/19/20 00:45 02/11/20 20:44 Amlodipine Besylate (Norvasc) 10 mg DAILY ORAL 01/19/20 09:00 02/15/20 08:59 01/19/20 09:27 Ascorbic Acid (Vitamin C) 250 mg DAILY ORAL 01/19/20 09:00 02/17/20 08:59 01/19/20 09:13 Aspirin (ASA) 81 mg DAILY ORAL 01/19/20 09:00 02/27/20 08:59 01/19/20 09:13 Clonidine HCl (Catapres Tab) 0.1 mg Q4H PRN ORAL For High Blood Pressure 01/19/20 01:30 04/13/20 13:29 Labetalol HCl (Normodyne) 200 mg Q12HR ORAL 01/19/20 09:00 02/16/20 08:59 01/19/20 09:27 Latanoprost (Xalatan) 1 drop BEDTIME BOTH EYES 01/19/20 21:00 02/12/20 00:59 Ondansetron HCl (Zofran) 4 mg Q4H PRN IVP Nausea & Vomiting 01/18/20 23:43 02/17/20 23:42 Lionel Chao MD Jan 19, 2020 13:40
--- NOTE | 2020-01-19 14:36 | Surgery Progress Note ---
Surgery Progress Note Subjective Additional Comments no acute events stable comfortable Objective Last 24 Hour Vital Signs Date Time Temp Pulse Resp B/P (MAP) Pulse Ox O2 Delivery O2 Flow Rate FiO2 01/19/20 12:00 96.8 66 18 141/71 (94) 96 01/19/20 09:27 61 164/81 01/19/20 09:27 61 164/81 01/19/20 09:00 Nasal Cannula 2.0 01/19/20 08:00 97.1 61 18 164/81 (108) 100 01/19/20 04:00 98.3 62 18 126/65 (85) 100 01/19/20 00:00 98.0 59 17 137/61 (86) 100 01/18/20 21:00 Nasal Cannula 2.0 01/18/20 20:54 65 114/66 01/18/20 20:00 97.5 62 18 114/66 (82) 99 01/18/20 17:54 99 Nasal Cannula 2.0 28 01/18/20 16:00 97.5 59 19 127/73 (91) 96 I&O Intake and Output 01/18/20 01/19/20 19:00 07:00 Intake Total 240 ml 250 ml Output Total 500 ml Balance -260 ml 250 ml Intake Oral 240 ml 250 ml Output Urine Total 500 ml # Voids 3 Dressing: saturated Wound: clean Cardiovascular: RSR Respiratory: clear, decreased breath sounds Abdomen: soft, non-tender, present bowel sounds Extremities: no edema, no tenderness, no cyanosis Laboratory Tests Test 01/19/20 02:30 White Blood Count 10.4 K/UL (4.8-10.8) Red Blood Count 4.04 M/UL (4.70-6.10) L Hemoglobin 12.9 G/DL (14.2-18.0) L Hematocrit 36.2 % (42.0-52.0) L Mean Corpuscular Volume 90 FL (80-99) Mean Corpuscular Hemoglobin 32.0 PG (27.0-31.0) H Mean Corpuscular Hemoglobin Concent 35.7 G/DL (32.0-36.0) Red Cell Distribution Width 11.2 % (11.6-14.8) L Platelet Count 204 K/UL (150-450) Mean Platelet Volume 5.3 FL (6.5-10.1) L Neutrophils (%) (Auto) 80.6 % (45.0-75.0) H Lymphocytes (%) (Auto) 10.0 % (20.0-45.0) L Monocytes (%) (Auto) 7.3 % (1.0-10.0) Eosinophils (%) (Auto) 1.6 % (0.0-3.0) Basophils (%) (Auto) 0.6 % (0.0-2.0) Sodium Level 142 MMOL/L (136-145) Potassium Level 3.4 MMOL/L (3.5-5.1) L Chloride Level 105 MMOL/L (98-107) Carbon Dioxide Level 26 MMOL/L (21-32) Anion Gap 11 mmol/L (5-15) Blood Urea Nitrogen 10 mg/dL (7-18) Creatinine 0.7 MG/DL (0.55-1.30) Estimat Glomerular Filtration Rate > 60 mL/min (>60) Glucose Level 143 MG/DL (74-106) H Calcium Level 8.5 MG/DL (8.5-10.1) Total Bilirubin 0.5 MG/DL (0.2-1.0) Aspartate Amino Transf (AST/SGOT) 16 U/L (15-37) Alanine Aminotransferase (ALT/SGPT) 23 U/L (12-78) Alkaline Phosphatase 48 U/L (46-116) Pro-B-Type Natriuretic Peptide 263 pg/mL (0-125) H Total Protein 5.6 G/DL (6.4-8.2) L Albumin 2.8 G/DL (3.4-5.0) L Globulin 2.8 g/dL Albumin/Globulin Ratio 1.0 (1.0-2.7) Lipase 472 U/L (73-393) H Plan Problems: (1) COVID-19 Assessment & Plan: positive all precautions taken (2) UTI (urinary tract infection) (3) Dehydration (4) Fever (5) Hematuria (6) CAD (coronary artery disease) (7) Fever of unknown origin (8) Proteinuria (9) Malnutrition of moderate degree Assessment & Plan: DAILY ESTIMATED NEEDS: Needs based on cardiac, wound, DM/ 65kg 25-30 kcals/kg 2974-6338 total kcals 1.25-1.5 g protein/kg 81-98 g total protein 25-30 mL/kg 8797-2568 total fluid mLs NUTRITION DIAGNOSIS: * Swallowing difficulty R/T dysphagia, h/o CVA as evidenced by pt on liquify pureed, NTL per [employer] rec. CURRENT DIET:Cardiac liq puree w/ NTL PO DIET RECOMMENDATIONS: Low na diet/ texture per [employer] + Glucerna BID ADDITIONAL RECOMMENDATIONS: * Calibrated bedscale wt for accurate CBW (143# per [facility]) * Add GLUCERNA BID w/ meals w/ variable po * Wound care: as tolerated SATYA BID + Vit C 250mg daily * Monitor BGs closely, rec NISS for coverage * Consider appetite stimulant * Consult RD if temp non oral feeds are part of POC * Liberalized Low Na diet; rec CCHO w/ consistent po intake >50% (10) Sepsis (11) Sepsis Assessment & Plan: Leukocytosis, febrile covid positive , on support evaluated and noted to have presented on admission with an open Sacral DTPI Base of wound is purple with small opening at sacrococcygeal area. Hyperpigmentation noted to cleft of buttocks /perianal area. considered as possible infection. unlikely uti, cxr okay on abx as per ID Apply Moisture Barrier Paste to Sacrum. Cover with Optifoam drsg. Change every 3 days and prn. Apply Moisture Barrier Paste to cleft of buttocks and scrotum with each incontinence care. Apply Cavilon Skin Barrier to both heels. Cover each heel with Optifoam drsg. Change every 7 days and prn. Reposition at least every 2hours or as tolerated. Off-load heels with pillow. APM/ERASMO Mattress overlay. cont current care stable (12) Pneumonia (13) Uncontrolled diabetes mellitus Kristopher Ayala Jan 19, 2020 14:36
[2020-01-19 16:00] VITALS: BP 149/75
--- NOTE | 2020-01-19 19:27 | NUR ---
HAND-OFF: Report given to KAI Barrios.
[2020-01-19 20:00] VITALS: BP 144/71
--- NOTE | 2020-01-19 20:26 | NUR ---
NURSE NOTES: Patient in bed, asleep, unable to make needs known. Respiration is even, on nasal cannula 2 L. Skin is warm an dry to touch. Noted dressing on sacral, intact. Abdomen is soft and non distended. Iv site noted. NOted with upper extremities swelling, trace pitting noted. Bed in low and locked position. Provided safe environment. Call light is at bedside. On isolation precautions, noted and observed. Will continue plan of care.
[2020-01-19] MEDS: Latanoprost 0.005% Opth 2.5ml Soln BOTH EYES SCH (20:42)
[2020-01-20] VITALS: BP 129/62
[2020-01-20 04:00] VITALS: BP 136/63
[2020-01-20 06:35] LABS: BASOPHILS % (AUTO) 0.5 % (0.0-2.0); EOSINOPHILS % (AUTO) 1.6 % (0.0-3.0); HEMATOCRIT 36.5 % (42.0-52.0); HEMOGLOBIN 12.8 G/DL (14.2-18.0); LYMPHOCYTES % (AUTO) 9.7 % (20.0-45.0); MEAN CORPUSCULAR VOLUME 91 FL (80-99); MONOCYTES % (AUTO) 7.5 % (1.0-10.0); NEUTROPHILS % (AUTO) 80.7 % (45.0-75.0); PLATELET COUNT 224 K/UL (150-450); RED BLOOD COUNT 4.01 M/UL (4.70-6.10); RED CELL DISTRIBUTION WIDTH 11.6 % (11.6-14.8); WHITE BLOOD COUNT 8.8 K/UL (4.8-10.8)
[2020-01-20 07:27] LABS: ALANINE AMINOTRANSFERASE 29 U/L (12-78); ALBUMIN 2.9 G/DL (3.4-5.0); ALKALINE PHOSPHATASE 48 U/L (46-116); ANION GAP 10 mmol/L (5-15); ASPARTATE AMINO TRANSFERASE 22 U/L (15-37); BILIRUBIN,TOTAL 0.4 MG/DL (0.2-1.0); BLOOD UREA NITROGEN 14 mg/dL (7-18); CALCIUM 8.2 MG/DL (8.5-10.1); CARBON DIOXIDE 27 MMOL/L (21-32); CHLORIDE 105 MMOL/L (98-107); CREATININE 0.9 MG/DL (0.55-1.30); SODIUM 142 MMOL/L (136-145)
--- NOTE | 2020-01-20 07:40 | NUR ---
HAND-OFF: Report given to KAI Marshall.
[2020-01-20 08:00] VITALS: BP 146/75
--- NOTE | 2020-01-20 08:00 | NUR ---
pt is the bed alert and awake. respiration is even and unlabored. no s/s of pain and discomfort noted. no acute distress noted at this time. placed call light within reach.
--- NOTE | 2020-01-20 08:43 | Progress Note ---
DATE: 01/19/2020 CARDIOLOGY PROGRESS NOTE SUBJECTIVE: The patient is on a low flow oxygen, status post hydroxychloroquine therapy without cardiac complications of QTc prolongation. PHYSICAL EXAMINATION: VITAL SIGN: Blood pressure 126/65, pulse 62, respirations 18, afebrile. LUNGS: Bilateral breath sounds. CARDIAC: Regular rhythm and rate. Normal S1, S2. ABDOMEN: Soft. EXTREMITIES: No edema. LABORATORY DATA: White count 10, hemoglobin 13, sodium 142, potassium 3.4, bicarb 26, BUN 10, and creatinine 0.7. Pro-natriuretic peptide 263 and lipase 472. IMPRESSION: 1. COVID-19 pneumonia. 2. Ischemic cardiomyopathy. 3. Status post respiratory failure. 4. Acute myocardial infarction. 5. Recovered metabolic encephalopathy. 6. Urinary tract infection. 7. Hypertensive heart disease with overall adequate blood pressure control. PLAN: 1. Respiratory therapy. 2. Taper off oxygen antimicrobials. Continue anti-platelet and anti-lipid drugs. Titrate antihypertensive and anti-failure drugs. 3. Potassium replacement. Periodic diuresis based on clinical parameters. Vishal Drummond M.D. DR: RICHAR JOB#: [id number] CC:
[2020-01-20] MEDS: Ascorbic Acid 500mg tab ORAL SCH (10:19)
[2020-01-20] MEDS: Aspirin Baby 81mg ORAL SCH (10:19)
--- NOTE | 2020-01-20 11:06 | Infectious Diseases Prog Note ---
Assessment/Plan Assessment/Plan antibiotics none A 1. Covid 19 pneumonia s.p hydroxychloroquine rx 2. coag neg staph in blood likely contaminated 3. diabetes mellitus 4. hypertension 5. CVA 6. leucocytosis resolved P 1. observe off antibiotics 2. continue isolation Subjective ROS Limited/Unobtainable: Yes Allergies: Coded Allergies: No Known Allergies (Unverified , 08/16/14) Objective Vital Signs Last 24 Hour Vital Signs Date Time Temp Pulse Resp B/P (MAP) Pulse Ox O2 Delivery O2 Flow Rate FiO2 01/20/20 10:20 65 146/75 01/20/20 10:20 65 146/75 01/20/20 08:00 98.4 65 17 146/75 (98) 100 01/20/20 04:00 97.6 87 16 136/63 (87) 100 01/20/20 00:00 97.1 54 20 129/62 (84) 98 01/19/20 21:00 Nasal Cannula 2.0 01/19/20 20:42 60 144/71 01/19/20 20:00 97.6 61 20 144/71 (95) 100 01/19/20 16:00 97.0 62 18 149/75 (99) 100 01/19/20 12:00 96.8 66 18 141/71 (94) 96 Height (Feet): 5 Height (Inches): 7.00 Weight (Pounds): 146 Microbiology Date/Time Source Procedure Growth Status 01/18/20 12:49 Nasopharynx Coronavirus COVID-19 PCR ([facility]) - Final Complete Laboratory Tests Test 01/20/20 05:50 White Blood Count 8.8 K/UL (4.8-10.8) Red Blood Count 4.01 M/UL (4.70-6.10) L Hemoglobin 12.8 G/DL (14.2-18.0) L Hematocrit 36.5 % (42.0-52.0) L Mean Corpuscular Volume 91 FL (80-99) Mean Corpuscular Hemoglobin 32.0 PG (27.0-31.0) H Mean Corpuscular Hemoglobin Concent 35.2 G/DL (32.0-36.0) Red Cell Distribution Width 11.6 % (11.6-14.8) Platelet Count 224 K/UL (150-450) Mean Platelet Volume 5.3 FL (6.5-10.1) L Neutrophils (%) (Auto) 80.7 % (45.0-75.0) H Lymphocytes (%) (Auto) 9.7 % (20.0-45.0) L Monocytes (%) (Auto) 7.5 % (1.0-10.0) Eosinophils (%) (Auto) 1.6 % (0.0-3.0) Basophils (%) (Auto) 0.5 % (0.0-2.0) Sodium Level 142 MMOL/L (136-145) Potassium Level 4.0 MMOL/L (3.5-5.1) Chloride Level 105 MMOL/L (98-107) Carbon Dioxide Level 27 MMOL/L (21-32) Anion Gap 10 mmol/L (5-15) Blood Urea Nitrogen 14 mg/dL (7-18) Creatinine 0.9 MG/DL (0.55-1.30) Estimat Glomerular Filtration Rate > 60 mL/min (>60) Glucose Level 164 MG/DL (74-106) H Calcium Level 8.2 MG/DL (8.5-10.1) L Magnesium Level 2.0 MG/DL (1.8-2.4) Total Bilirubin 0.4 MG/DL (0.2-1.0) Aspartate Amino Transf (AST/SGOT) 22 U/L (15-37) Alanine Aminotransferase (ALT/SGPT) 29 U/L (12-78) Alkaline Phosphatase 48 U/L (46-116) Pro-B-Type Natriuretic Peptide 192 pg/mL (0-125) H Total Protein 5.7 G/DL (6.4-8.2) L Albumin 2.9 G/DL (3.4-5.0) L Globulin 2.8 g/dL Albumin/Globulin Ratio 1.0 (1.0-2.7) Current Medications Medications (Trade) Dose Ordered Sig/Wayne Route PRN Reason Start Time Stop Time Status Last Admin Dose Admin Acetaminophen (Tylenol) 650 mg Q4H PRN ORAL Mild Pain (Pain Scale 1-3) 01/19/20 00:45 02/11/20 20:44 Amlodipine Besylate (Norvasc) 10 mg DAILY ORAL 01/19/20 09:00 02/15/20 08:59 01/20/20 10:20 Ascorbic Acid (Vitamin C) 250 mg DAILY ORAL 01/19/20 09:00 02/17/20 08:59 01/20/20 10:19 Aspirin (ASA) 81 mg DAILY ORAL 01/19/20 09:00 02/27/20 08:59 01/20/20 10:19 Clonidine HCl (Catapres Tab) 0.1 mg Q4H PRN ORAL For High Blood Pressure 01/19/20 01:30 04/13/20 13:29 Labetalol HCl (Normodyne) 200 mg Q12HR ORAL 01/19/20 09:00 02/16/20 08:59 01/20/20 10:20 Latanoprost (Xalatan) 1 drop BEDTIME BOTH EYES 01/19/20 21:00 02/12/20 00:59 01/19/20 20:42 Ondansetron HCl (Zofran) 4 mg Q4H PRN IVP Nausea & Vomiting 01/18/20 23:43 02/17/20 23:42 Radames Morales MD Jan 20, 2020 11:06
--- NOTE | 2020-01-20 11:46 | NUR ---
TINWARE LITHOGRAPH PRESS OPERATOR WEEKLY PROGRESS REPORT: PT W/ ONGOING AND WORSENING OROPHARYNGEAL DYSPHAGIA. PT SEEN ON 01/15 AND 01/17 FOR DYSPHAGIA MANAGEMENT AND TREATMENT. PT W/ INCONSISTENT >75% PO INTAKE FOR ADEQUATE NUTRITION/HYDRATION PER CHART REVIEW. 01/16/20: PT ON NECTAR THICK LIQUIDS AND PUREE SOLIDS DIET. NO OVERT S/S OF ASPIRATION. 01/18/20: PT UPGRADED TO MECH-SOFT FINELY CHOPPED SOLIDS W/ THIN LIQUIDS. PER CXR ON 01/18/20: Findings: Heart size and mediastinal contours are stable. Again the patient is noted to be status post median sternotomy and likely CABG. Atherosclerotic calcifications noted in the aorta. There is an development of very mild streaky opacities at the left base. No pneumothorax. A likely a nipple shadow projects over the periphery of the right lung base. There is no acute osseous abnormality. Impression: Interval development of some mild streaky opacities at the left base which may related to subsegmental atelectasis. Correlate clinically to exclude the possibility of developing infectious infiltrate. 01/20/20: PT SEEN TODAY FOR F/U AND FURTHER DYSPHAGIA MANAGEMENT AND TX. PER KAI BECK, PT OBSERVED W/ S/S OF ASPIRATION IN AM (ON 01/20/20) W/ FINELY CHOPPED MECHANICAL SOFT SOLIDS. TINWARE LITHOGRAPH PRESS OPERATOR SAW PT AT BEDSIDE, PT REPOSITIONED. ONGOING REDUCED VERBAL COMMUNICATION, APPEARS TO BE PT'S BASELINE. PT GIVEN PUREE SOLID (APPLE SAUCE) WITH THIN LIQUIDS VIA TBS W/ NO OVERT S/S OF ASPIRATION, TINWARE LITHOGRAPH PRESS OPERATOR DOWNGRADED PT TO PUREE SOLIDS WITH THIN LIQUIDS DUE TO CONCERN FOR ASPIRATION PNA S/P CHEST X-RAY AND PT'S DIFFICULTY TOLERATING MECHANICAL SOFT-FINELY CHOPPED SOLIDS. TINWARE LITHOGRAPH PRESS OPERATOR PLANS TO CONTINUE TO MONITOR PT'S SAFETY W/ CURRENT DIET,ABILITY TO MEET NUTRITION/HYDRATION NEEDS, AND CANDIDACY FOR MBSS OBJECTIVE SWALLOW EVALUATION.
--- NOTE | 2020-01-20 11:57 | Pulmonology Progress Note ---
Assessment/Plan Assessment/Plan ASSESSMENT: COVID-19 pneumonia, respiratory failure, acute CO hypertension, diabetes, hypothyroidism, hypernatremia protein calorie malnutrition bacteremia PLAN respiratory noted and care reviewed oxygen as needed; low flow; keep sats >92% ID review and recommendations monitor as is aspiration precautions as is overall minimal congestion at present review and monitor for fevers or deterioration impression, plan, and exam edited and reviewed in detail care discussed with RN. Subjective Allergies: Coded Allergies: No Known Allergies (Unverified , 08/16/14) Subjective overnight events reviewed no distress on oxygen low flow and stable MD care reviewed Objective Last 24 Hour Vital Signs Date Time Temp Pulse Resp B/P (MAP) Pulse Ox O2 Delivery O2 Flow Rate FiO2 01/20/20 10:20 65 146/75 01/20/20 10:20 65 146/75 01/20/20 08:00 98.4 65 17 146/75 (98) 100 01/20/20 04:00 97.6 87 16 136/63 (87) 100 01/20/20 00:00 97.1 54 20 129/62 (84) 98 01/19/20 21:00 Nasal Cannula 2.0 01/19/20 20:42 60 144/71 01/19/20 20:00 97.6 61 20 144/71 (95) 100 01/19/20 16:00 97.0 62 18 149/75 (99) 100 01/19/20 12:00 96.8 66 18 141/71 (94) 96 Intake and Output 01/19/20 01/20/20 19:00 07:00 Intake Total 200 ml 250 ml Balance 200 ml 250 ml Intake Oral 200 ml 250 ml # Voids 3 2 Objective WDWN NAD reduced breath sounds bilaterally without rhonchi or wheeze [id number] without MRG NABS nontender no HSM no CCE confused and weak Microbiology Date/Time Source Procedure Growth Status 01/18/20 12:49 Nasopharynx Coronavirus COVID-19 PCR ([facility]) - Final Complete Laboratory Tests 01/20/20 05:50: White Blood Count 8.8, Red Blood Count 4.01L, Hemoglobin 12.8L, Hematocrit 36.5L , Mean Corpuscular Volume 91, Mean Corpuscular Hemoglobin 32.0H, Mean Corpuscular Hemoglobin Concent 35.2, Red Cell Distribution Width 11.6, Platelet Count 224, Mean Platelet Volume 5.3L, Neutrophils (%) (Auto) 80.7H, Lymphocytes (%) (Auto) 9.7L, Monocytes (%) (Auto) 7.5, Eosinophils (%) (Auto) 1.6, Basophils (%) (Auto) 0.5, Sodium Level 142, Potassium Level 4.0, Chloride Level 105, Carbon Dioxide Level 27, Anion Gap 10, Blood Urea Nitrogen 14, Creatinine 0.9, Estimat Glomerular Filtration Rate > 60, Glucose Level 164H, Calcium Level 8.2L, Magnesium Level 2.0, Total Bilirubin 0.4, Aspartate Amino Transf (AST/SGOT ) 22, Alanine Aminotransferase (ALT/SGPT) 29, Alkaline Phosphatase 48, Pro-B- Type Natriuretic Peptide 192H, Total Protein 5.7L, Albumin 2.9L, Globulin 2.8, Albumin/Globulin Ratio 1.0 Current Medications Medications (Trade) Dose Ordered Sig/Wayne Route PRN Reason Start Time Stop Time Status Last Admin Dose Admin Acetaminophen (Tylenol) 650 mg Q4H PRN ORAL Mild Pain (Pain Scale 1-3) 01/19/20 00:45 02/11/20 20:44 Amlodipine Besylate (Norvasc) 10 mg DAILY ORAL 01/19/20 09:00 02/15/20 08:59 01/20/20 10:20 Ascorbic Acid (Vitamin C) 250 mg DAILY ORAL 01/19/20 09:00 02/17/20 08:59 01/20/20 10:19 Aspirin (ASA) 81 mg DAILY ORAL 01/19/20 09:00 02/27/20 08:59 01/20/20 10:19 Clonidine HCl (Catapres Tab) 0.1 mg Q4H PRN ORAL For High Blood Pressure 01/19/20 01:30 04/13/20 13:29 Labetalol HCl (Normodyne) 200 mg Q12HR ORAL 01/19/20 09:00 02/16/20 08:59 01/20/20 10:20 Latanoprost (Xalatan) 1 drop BEDTIME BOTH EYES 01/19/20 21:00 02/12/20 00:59 01/19/20 20:42 Ondansetron HCl (Zofran) 4 mg Q4H PRN IVP Nausea & Vomiting 01/18/20 23:43 02/17/20 23:42 Gustavo Jorgensen MD Jan 20, 2020 11:57
[2020-01-20 12:00] VITALS: BP 133/68
--- NOTE | 2020-01-20 13:01 | General Progress Note ---
Assessment/Plan Problem List: (1) UTI (urinary tract infection) ICD Codes: N39.0 - Urinary tract infection, site not specified SNOMED: 82669103 (2) Dehydration ICD Codes: E86.0 - Dehydration SNOMED: 34937335 (3) Fever ICD Codes: R50.9 - Fever, unspecified SNOMED: 007439679 (4) CAD (coronary artery disease) ICD Codes: I25.10 - Atherosclerotic heart disease of [place] coronary artery without angina pectoris SNOMED: 98265254 (5) Fever of unknown origin ICD Codes: R50.9 - Fever, unspecified SNOMED: 0907744 (6) COVID-19 ICD Codes: U07.1 - COVID-19 SNOMED: 657198947 (7) Uncontrolled diabetes mellitus ICD Codes: E11.9 - Type 2 diabetes mellitus without complications SNOMED: 809938757 (8) Pneumonia ICD Codes: J18.9 - Pneumonia, unspecified organism SNOMED: 609095003 (9) Sepsis ICD Codes: A41.9 - Sepsis, unspecified organism SNOMED: 08128296 Status: stable Assessment/Plan: Continue antibiotics per ID recommendations. Supplemental oxygen to keep sats greater than 92%. Monitor lytes- replace as needed Aspiration precautions. monitor bp and titrate as needed. dvt and stress ulcer prophylaxis. repeat covid 19 pcr Subjective ROS Limited/Unobtainable: Yes Constitutional: Reports: malaise, weakness HEENT: Reports: no symptoms Cardiovascular: Reports: no symptoms Respiratory: Reports: cough, shortness of breath Gastrointestinal/Abdominal: Reports: no symptoms Genitourinary: Reports: no symptoms Neurologic/Psychiatric: Reports: pre-existing deficit Endocrine: Reports: no symptoms Hematologic/Lymphatic: Reports: no symptoms Allergies: Coded Allergies: No Known Allergies (Unverified , 08/16/14) All Systems: reviewed and negative except above Subjective No overnight events. on med surg. Currently resting. O2 saturation remained stable on 2 L nasal cannula. Completed hydroxychloroquine. cxr with "streaky" basilar opacities. eating well. no fevers. covid 19 pcr neg Objective Last 24 Hour Vital Signs Date Time Temp Pulse Resp B/P (MAP) Pulse Ox O2 Delivery O2 Flow Rate FiO2 01/20/20 10:20 65 146/75 01/20/20 10:20 65 146/75 01/20/20 09:00 Nasal Cannula 2.0 01/20/20 08:00 98.4 65 17 146/75 (98) 100 01/20/20 04:00 97.6 87 16 136/63 (87) 100 01/20/20 00:00 97.1 54 20 129/62 (84) 98 01/19/20 21:00 Nasal Cannula 2.0 01/19/20 20:42 60 144/71 01/19/20 20:00 97.6 61 20 144/71 (95) 100 01/19/20 16:00 97.0 62 18 149/75 (99) 100 Intake and Output 01/19/20 01/20/20 19:00 07:00 Intake Total 200 ml 250 ml Balance 200 ml 250 ml Intake Oral 200 ml 250 ml # Voids 3 2 Laboratory Tests 01/20/20 05:50: White Blood Count 8.8, Red Blood Count 4.01L, Hemoglobin 12.8L, Hematocrit 36.5L , Mean Corpuscular Volume 91, Mean Corpuscular Hemoglobin 32.0H, Mean Corpuscular Hemoglobin Concent 35.2, Red Cell Distribution Width 11.6, Platelet Count 224, Mean Platelet Volume 5.3L, Neutrophils (%) (Auto) 80.7H, Lymphocytes (%) (Auto) 9.7L, Monocytes (%) (Auto) 7.5, Eosinophils (%) (Auto) 1.6, Basophils (%) (Auto) 0.5, Sodium Level 142, Potassium Level 4.0, Chloride Level 105, Carbon Dioxide Level 27, Anion Gap 10, Blood Urea Nitrogen 14, Creatinine 0.9, Estimat Glomerular Filtration Rate > 60, Glucose Level 164H, Calcium Level 8.2L, Magnesium Level 2.0, Total Bilirubin 0.4, Aspartate Amino Transf (AST/SGOT ) 22, Alanine Aminotransferase (ALT/SGPT) 29, Alkaline Phosphatase 48, Pro-B- Type Natriuretic Peptide 192H, Total Protein 5.7L, Albumin 2.9L, Globulin 2.8, Albumin/Globulin Ratio 1.0 Height (Feet): 5 Height (Inches): 7.00 Weight (Pounds): 146 Objective General Appearance: WD/WN, alert Neck: supple Cardiovascular: normal rate, regular rhythm Respiratory/Chest: chest wall non-tender, lungs clear, normal breath sounds Abdomen: normal bowel sounds, non tender, soft, no organomegaly Edema: no edema noted Arm (L), no edema noted Arm (R), no edema noted Leg (L), no edema noted Leg (R), no edema noted Pedal (L), no edema noted Pedal (R), no edema noted Generalized Eliud Lizama MD Jan 20, 2020 13:01
--- NOTE | 2020-01-20 14:10 | NUR ---
RD ASSESSMENT & RECOMMENDATIONS SEE CARE ACTIVITY FOR COMPLETE ASSESSMENT DAILY ESTIMATED NEEDS: Needs based on cardiac, wound, DM/ 65kg 25-30 kcals/kg 7555-7944 total kcals 1.25-1.5 g protein/kg 81-98 g total protein 25-30 mL/kg 6178-6934 total fluid mLs NUTRITION DIAGNOSIS: * Swallowing difficulty R/T dysphagia, h/o CVA as evidenced by pt on liquify pureed, NTL per SUPERVISOR PREP rec. CURRENT DIET:Cardiac liq puree w/ NTL PO DIET RECOMMENDATIONS: Low na diet/ texture per SUPERVISOR PREP + continue Glucerna BID w/ meals ADDITIONAL RECOMMENDATIONS: * Calibrated bedscale wt for accurate CBW (143# per SNF) * Add GLUCERNA BID w/ meals w/ variable po * Wound care: as tolerated SATYA BID + Vit C 250mg daily * Monitor BGs closely, rec NISS for coverage * Consider appetite stimulant * Consult RD if temp non oral feeds are part of POC .
--- NOTE | 2020-01-20 15:10 | NUR ---
CASE MANAGEMENT:REVIEW SI;SEPSIS. COVID-19 PNA. ACUTE RESPIRATORY FAILURE. BACTEREMIA. 98.4 54 20 146/75 98% 2L NC BG 164 CA 8.2 BNP 192 ALB 2.9 IS;LABETALOL PO Q12 HRS NORVASC PO QD ASA PO WD VIT C PO QD MED SURG STATUS DCP;[facility];REPEAT COVID-19 TEST (2 NEG RESULTS REQUIRED TO RETURN TO SNF) CONTINUE ISOLATION
[2020-01-20 16:00] VITALS: BP 148/73
--- NOTE | 2020-01-20 19:21 | NUR ---
HAND-OFF: Report given to Suraj.
--- NOTE | 2020-01-20 19:30 | NUR ---
NURSE NOTES: Pt. received from KAI Alexander. Pt. alert to name, breathing even and unlabored on 2L NC, no indications of SOB and no indication of pain. IV right FA 20g intact, saline locked. Bed is low and locked, side rails x3 up, bed alarm active, and call light is in reach. Will continue to monitor.
[2020-01-20 20:00] VITALS: BP 149/70
--- NOTE | 2020-01-20 20:34 | Surgery Progress Note ---
Surgery Progress Note Subjective Additional Comments no acute events labs reviewd micro noted Objective Last 24 Hour Vital Signs Date Time Temp Pulse Resp B/P (MAP) Pulse Ox O2 Delivery O2 Flow Rate FiO2 01/20/20 16:00 97.7 61 20 148/73 (98) 98 01/20/20 12:00 98.2 68 18 133/68 (89) 98 01/20/20 10:20 65 146/75 01/20/20 10:20 65 146/75 01/20/20 09:00 Nasal Cannula 2.0 01/20/20 08:00 98.4 65 17 146/75 (98) 100 01/20/20 04:00 97.6 87 16 136/63 (87) 100 01/20/20 00:00 97.1 54 20 129/62 (84) 98 01/19/20 21:00 Nasal Cannula 2.0 01/19/20 20:42 60 144/71 I&O Intake and Output 01/19/20 01/20/20 19:00 07:00 Intake Total 200 ml 250 ml Balance 200 ml 250 ml Intake Oral 200 ml 250 ml # Voids 3 2 Dressing: saturated Wound: clean Cardiovascular: RSR Respiratory: decreased breath sounds Abdomen: soft, non-tender, present bowel sounds Extremities: no tenderness, no cyanosis Laboratory Tests Test 01/20/20 05:50 White Blood Count 8.8 K/UL (4.8-10.8) Red Blood Count 4.01 M/UL (4.70-6.10) L Hemoglobin 12.8 G/DL (14.2-18.0) L Hematocrit 36.5 % (42.0-52.0) L Mean Corpuscular Volume 91 FL (80-99) Mean Corpuscular Hemoglobin 32.0 PG (27.0-31.0) H Mean Corpuscular Hemoglobin Concent 35.2 G/DL (32.0-36.0) Red Cell Distribution Width 11.6 % (11.6-14.8) Platelet Count 224 K/UL (150-450) Mean Platelet Volume 5.3 FL (6.5-10.1) L Neutrophils (%) (Auto) 80.7 % (45.0-75.0) H Lymphocytes (%) (Auto) 9.7 % (20.0-45.0) L Monocytes (%) (Auto) 7.5 % (1.0-10.0) Eosinophils (%) (Auto) 1.6 % (0.0-3.0) Basophils (%) (Auto) 0.5 % (0.0-2.0) Sodium Level 142 MMOL/L (136-145) Potassium Level 4.0 MMOL/L (3.5-5.1) Chloride Level 105 MMOL/L (98-107) Carbon Dioxide Level 27 MMOL/L (21-32) Anion Gap 10 mmol/L (5-15) Blood Urea Nitrogen 14 mg/dL (7-18) Creatinine 0.9 MG/DL (0.55-1.30) Estimat Glomerular Filtration Rate > 60 mL/min (>60) Glucose Level 164 MG/DL (74-106) H Calcium Level 8.2 MG/DL (8.5-10.1) L Magnesium Level 2.0 MG/DL (1.8-2.4) Total Bilirubin 0.4 MG/DL (0.2-1.0) Aspartate Amino Transf (AST/SGOT) 22 U/L (15-37) Alanine Aminotransferase (ALT/SGPT) 29 U/L (12-78) Alkaline Phosphatase 48 U/L (46-116) Pro-B-Type Natriuretic Peptide 192 pg/mL (0-125) H Total Protein 5.7 G/DL (6.4-8.2) L Albumin 2.9 G/DL (3.4-5.0) L Globulin 2.8 g/dL Albumin/Globulin Ratio 1.0 (1.0-2.7) Plan Problems: (1) COVID-19 Assessment & Plan: positive all precautions taken (2) UTI (urinary tract infection) (3) Dehydration (4) Fever (5) Hematuria (6) CAD (coronary artery disease) (7) Fever of unknown origin (8) Proteinuria (9) Malnutrition of moderate degree Assessment & Plan: DAILY ESTIMATED NEEDS: Needs based on cardiac, wound, DM/ 65kg 25-30 kcals/kg 7531-1934 total kcals 1.25-1.5 g protein/kg 81-98 g total protein 25-30 mL/kg 6040-7322 total fluid mLs NUTRITION DIAGNOSIS: * Swallowing difficulty R/T dysphagia, h/o CVA as evidenced by pt on liquify pureed, NTL per DISTRIBUTION CENTER MANAGER rec. CURRENT DIET:Cardiac liq puree w/ NTL PO DIET RECOMMENDATIONS: Low na diet/ texture per DISTRIBUTION CENTER MANAGER + continue Glucerna BID w/ meals ADDITIONAL RECOMMENDATIONS: * Calibrated bedscale wt for accurate CBW (143# per SNF) * Add GLUCERNA BID w/ meals w/ variable po * Wound care: as tolerated SATYA BID + Vit C 250mg daily * Monitor BGs closely, rec NISS for coverage * Consider appetite stimulant * Consult RD if temp non oral feeds are part of POC (10) Sepsis (11) Sepsis Assessment & Plan: Leukocytosis, febrile covid positive , on support evaluated and noted to have presented on admission with an open Sacral DTPI Base of wound is purple with small opening at sacrococcygeal area. Hyperpigmentation noted to cleft of buttocks /perianal area. considered as possible infection. unlikely uti, cxr okay on abx as per ID Apply Moisture Barrier Paste to Sacrum. Cover with Optifoam drsg. Change every 3 days and prn. Apply Moisture Barrier Paste to cleft of buttocks and scrotum with each incontinence care. Apply Cavilon Skin Barrier to both heels. Cover each heel with Optifoam drsg. Change every 7 days and prn. Reposition at least every 2hours or as tolerated. Off-load heels with pillow. APM/ERASMO Mattress overlay. cont current care stable (12) Pneumonia (13) Uncontrolled diabetes mellitus Kristopher Ayala Jan 20, 2020 20:34
[2020-01-20] MEDS: Latanoprost 0.005% Opth 2.5ml Soln BOTH EYES SCH (21:46)
[2020-01-21] VITALS (7 sets, daily range): BP systolic 132–176; BP diastolic 66–80
--- NOTE | 2020-01-21 05:29 | Progress Note ---
DATE: 01/20/2020 CARDIOLOGY PROGRESS NOTE SUBJECTIVE: The patient is stable on low flow oxygen. Completed hydroxychloroquine with no cardiac complications. OBJECTIVE: VITAL SIGNS: Blood pressure 146/75, pulse 65, and respirations 20. LUNGS: Bilateral breath sounds. Few rhonchi. CARDIAC: Regular rhythm and rate. Normal S1 and S2. A 1/6 systolic murmur at apex. ABDOMEN: Soft. EXTREMITIES: Trace edema. LABORATORY DATA: White count 8.8 and hemoglobin 12.8. Sodium 142, potassium 4, bicarbonate 27, BUN 14, and creatinine 0.9. Pro-natriuretic peptide 192. IMPRESSION: 1. Chronic diastolic congestive heart failure. 2. Ischemic cardiomyopathy, stable. 3. Cardiac rhythm. No QTc prolongation following hydroxychloroquine therapy. 4. COVID-19 pneumonia with no significant residual hypoxia and resolving infiltrates. PLAN: 1. Isolation. 2. No additional antimicrobial. 3. Continue anti-platelet therapy, beta-blockade, and antihypertensives. 4. Resume statin therapy for LDL goal less than 70. Vishal Drummond M.D. DR: LORA JOB#: [id number] CC:
--- NOTE | 2020-01-21 07:46 | NUR ---
HAND-OFF: Report given to KAI Marinelli.
[2020-01-21] MEDS: Aspirin Baby 81mg ORAL SCH (09:11)
[2020-01-21] MEDS: Ascorbic Acid 500mg tab ORAL SCH (09:11)
--- NOTE | 2020-01-21 10:50 | Infectious Diseases Prog Note ---
Assessment/Plan Assessment/Plan antibiotics none A 1. Covid 19 pneumonia s.p hydroxychloroquine rx test negative 01.18.20 2. coag neg staph in blood likely contaminated 3. diabetes mellitus 4. hypertension 5. CVA 6. leucocytosis resolved P 1. observe off antibiotics 2. continue isolation Subjective ROS Limited/Unobtainable: Yes Allergies: Coded Allergies: No Known Allergies (Unverified , 08/16/14) Objective Vital Signs Last 24 Hour Vital Signs Date Time Temp Pulse Resp B/P (MAP) Pulse Ox O2 Delivery O2 Flow Rate FiO2 01/21/20 09:10 60 138/74 01/21/20 09:10 60 138/74 01/21/20 09:00 Nasal Cannula 2.0 01/21/20 08:00 98.2 60 18 138/74 (95) 100 01/21/20 06:45 144/77 (99) 01/21/20 04:51 176/80 01/21/20 04:00 97.5 60 18 176/80 (112) 100 01/21/20 00:00 97.0 57 16 146/76 (99) 94 01/20/20 21:46 65 149/70 01/20/20 21:00 Nasal Cannula 2.0 01/20/20 20:00 97.0 60 18 149/70 (96) 96 01/20/20 16:00 97.7 61 20 148/73 (98) 98 01/20/20 12:00 98.2 68 18 133/68 (89) 98 Height (Feet): 5 Height (Inches): 7.00 Weight (Pounds): 146 Microbiology Date/Time Source Procedure Growth Status 01/18/20 12:49 Nasopharynx Coronavirus COVID-19 PCR (JOSE) - Final Complete Current Medications Medications (Trade) Dose Ordered Sig/Wayne Route PRN Reason Start Time Stop Time Status Last Admin Dose Admin Acetaminophen (Tylenol) 650 mg Q4H PRN ORAL Mild Pain (Pain Scale 1-3) 01/19/20 00:45 02/11/20 20:44 Amlodipine Besylate (Norvasc) 10 mg DAILY ORAL 01/19/20 09:00 02/15/20 08:59 01/21/20 09:10 Ascorbic Acid (Vitamin C) 250 mg DAILY ORAL 01/19/20 09:00 02/17/20 08:59 01/21/20 09:11 Aspirin (ASA) 81 mg DAILY ORAL 01/19/20 09:00 02/27/20 08:59 01/21/20 09:11 Clonidine HCl (Catapres Tab) 0.1 mg Q4H PRN ORAL For High Blood Pressure 01/19/20 01:30 04/13/20 13:29 01/21/20 04:51 Labetalol HCl (Normodyne) 200 mg Q12HR ORAL 01/19/20 09:00 02/16/20 08:59 01/21/20 09:10 Latanoprost (Xalatan) 1 drop BEDTIME BOTH EYES 01/19/20 21:00 02/12/20 00:59 01/20/20 21:46 Ondansetron HCl (Zofran) 4 mg Q4H PRN IVP Nausea & Vomiting 01/18/20 23:43 02/17/20 23:42 Pravastatin Sodium (Pravachol) 20 mg BEDTIME ORAL 01/21/20 21:00 02/20/20 20:59 Radames Morales MD Jan 21, 2020 10:50
--- NOTE | 2020-01-21 13:35 | General Progress Note ---
Assessment/Plan Problem List: (1) UTI (urinary tract infection) ICD Codes: N39.0 - Urinary tract infection, site not specified SNOMED: 85415302 (2) Dehydration ICD Codes: E86.0 - Dehydration SNOMED: 78285962 (3) Fever ICD Codes: R50.9 - Fever, unspecified SNOMED: 849608821 (4) CAD (coronary artery disease) ICD Codes: I25.10 - Atherosclerotic heart disease of [place] coronary artery without angina pectoris SNOMED: 13185374 (5) Fever of unknown origin ICD Codes: R50.9 - Fever, unspecified SNOMED: 3776734 (6) COVID-19 ICD Codes: U07.1 - COVID-19 SNOMED: 059808250 (7) Uncontrolled diabetes mellitus ICD Codes: E11.9 - Type 2 diabetes mellitus without complications SNOMED: 189493776 (8) Pneumonia ICD Codes: J18.9 - Pneumonia, unspecified organism SNOMED: 551638819 (9) Sepsis ICD Codes: A41.9 - Sepsis, unspecified organism SNOMED: 72125003 Status: stable Assessment/Plan: Continue antibiotics per ID recommendations. Supplemental oxygen to keep sats greater than 92%. Monitor lytes- replace as needed Aspiration precautions. monitor bp and titrate as needed. dvt and stress ulcer prophylaxis. repeat covid 19 pcr Subjective ROS Limited/Unobtainable: No Constitutional: Reports: malaise, weakness HEENT: Reports: no symptoms Cardiovascular: Reports: no symptoms Respiratory: Reports: cough, shortness of breath Gastrointestinal/Abdominal: Reports: no symptoms Genitourinary: Reports: no symptoms Neurologic/Psychiatric: Reports: depressed Endocrine: Reports: no symptoms Hematologic/Lymphatic: Reports: no symptoms Allergies: Coded Allergies: No Known Allergies (Unverified , 08/16/14) All Systems: reviewed and negative except above Subjective No overnight events. on med surg. Currently resting. O2 saturation remained stable on 2 L nasal cannula. Completed hydroxychloroquine. cxr with "streaky" basilar opacities. eating well. no fevers. covid 19 pcr neg Objective Last 24 Hour Vital Signs Date Time Temp Pulse Resp B/P (MAP) Pulse Ox O2 Delivery O2 Flow Rate FiO2 01/21/20 12:00 98.0 60 18 132/69 (90) 100 01/21/20 09:10 60 138/74 4/18/20 09:10 60 138/74 01/21/20 09:00 Nasal Cannula 2.0 01/21/20 08:00 98.2 60 18 138/74 (95) 100 01/21/20 06:45 144/77 (99) 01/21/20 04:51 176/80 01/21/20 04:00 97.5 60 18 176/80 (112) 100 01/21/20 00:00 97.0 57 16 146/76 (99) 94 01/20/20 21:46 65 149/70 01/20/20 21:00 Nasal Cannula 2.0 01/20/20 20:00 97.0 60 18 149/70 (96) 96 01/20/20 16:00 97.7 61 20 148/73 (98) 98 Intake and Output 01/20/20 01/21/20 19:00 07:00 Intake Total 200 ml 240 ml Balance 200 ml 240 ml Intake Oral 200 ml 240 ml # Voids 3 3 Height (Feet): 5 Height (Inches): 7.00 Weight (Pounds): 146 Objective General Appearance: WD/WN, alert Neck: supple Cardiovascular: normal rate, regular rhythm Respiratory/Chest: chest wall non-tender, lungs clear, normal breath sounds Abdomen: normal bowel sounds, non tender, soft, no organomegaly Edema: no edema noted Arm (L), no edema noted Arm (R), no edema noted Leg (L), no edema noted Leg (R), no edema noted Pedal (L), no edema noted Pedal (R), no edema noted Generalized Eliud Lizama MD Jan 21, 2020 13:35
--- NOTE | 2020-01-21 15:03 | Surgery Progress Note ---
Surgery Progress Note Subjective Symptoms: improved Objective Last 24 Hour Vital Signs Date Time Temp Pulse Resp B/P (MAP) Pulse Ox O2 Delivery O2 Flow Rate FiO2 01/21/20 12:00 98.0 60 18 132/69 (90) 100 01/21/20 09:10 60 138/74 01/21/20 09:10 60 138/74 01/21/20 09:00 Nasal Cannula 2.0 01/21/20 08:00 98.2 60 18 138/74 (95) 100 01/21/20 06:45 144/77 (99) 01/21/20 04:51 176/80 01/21/20 04:00 97.5 60 18 176/80 (112) 100 01/21/20 00:00 97.0 57 16 146/76 (99) 94 01/20/20 21:46 65 149/70 01/20/20 21:00 Nasal Cannula 2.0 01/20/20 20:00 97.0 60 18 149/70 (96) 96 01/20/20 16:00 97.7 61 20 148/73 (98) 98 I&O Intake and Output 01/20/20 01/21/20 19:00 07:00 Intake Total 200 ml 240 ml Balance 200 ml 240 ml Intake Oral 200 ml 240 ml # Voids 3 3 Dressing: other Wound: other Drains: other Cardiovascular: RSR Respiratory: decreased breath sounds Abdomen: soft, non-tender, present bowel sounds Extremities: no tenderness, no cyanosis Plan Problems: (1) COVID-19 Assessment & Plan: positive all precautions taken (2) UTI (urinary tract infection) (3) Dehydration (4) Fever (5) Hematuria (6) CAD (coronary artery disease) (7) Fever of unknown origin (8) Proteinuria (9) Malnutrition of moderate degree Assessment & Plan: DAILY ESTIMATED NEEDS: Needs based on cardiac, wound, DM/ 65kg 25-30 kcals/kg 2610-7649 total kcals 1.25-1.5 g protein/kg 81-98 g total protein 25-30 mL/kg 1925-8654 total fluid mLs NUTRITION DIAGNOSIS: * Swallowing difficulty R/T dysphagia, h/o CVA as evidenced by pt on liquify pureed, NTL per IMPLEMENTATION ENGINEER rec. CURRENT DIET:Cardiac liq puree w/ NTL PO DIET RECOMMENDATIONS: Low na diet/ texture per IMPLEMENTATION ENGINEER + continue Glucerna BID w/ meals ADDITIONAL RECOMMENDATIONS: * Calibrated bedscale wt for accurate CBW (143# per SNF) * Add GLUCERNA BID w/ meals w/ variable po * Wound care: as tolerated SATYA BID + Vit C 250mg daily * Monitor BGs closely, rec NISS for coverage * Consider appetite stimulant * Consult RD if temp non oral feeds are part of POC (10) Sepsis (11) Sepsis Assessment & Plan: Leukocytosis, febrile covid positive , on support evaluated and noted to have presented on admission with an open Sacral DTPI Base of wound is purple with small opening at sacrococcygeal area. Hyperpigmentation noted to cleft of buttocks /perianal area. considered as possible infection. unlikely uti, cxr okay on abx as per ID Apply Moisture Barrier Paste to Sacrum. Cover with Optifoam drsg. Change every 3 days and prn. Apply Moisture Barrier Paste to cleft of buttocks and scrotum with each incontinence care. Apply Cavilon Skin Barrier to both heels. Cover each heel with Optifoam drsg. Change every 7 days and prn. Reposition at least every 2hours or as tolerated. Off-load heels with pillow. APM/ERASMO Mattress overlay. cont current care stable (12) Pneumonia (13) Uncontrolled diabetes mellitus Kristopher Ayala Jan 21, 2020 15:03
--- NOTE | 2020-01-21 19:26 | NUR ---
HAND-OFF: Report given to KAI Watson.
--- NOTE | 2020-01-21 19:36 | NUR ---
NURSE NOTES: Report received from KAI Gordon.
[2020-01-21] MEDS: Latanoprost 0.005% Opth 2.5ml Soln BOTH EYES SCH (21:45)
--- NOTE | 2020-01-21 22:21 | Pulmonology Progress Note ---
Assessment/Plan Assessment/Plan Pulmonary Progress Note Assessment/Plan ASSESSMENT: COVID-19 pneumonia, respiratory failure, acute [place] hypertension, diabetes, hypothyroidism, hypernatremia protein calorie malnutrition bacteremia PLAN respiratory noted and care reviewed oxygen as needed; low flow; keep sats >92% ID review and recommendations monitor as is aspiration precautions as is overall minimal congestion at present review and monitor for fevers or deterioration impression, plan, and exam edited and reviewed in detail care discussed with RN. Subjective Allergies: Coded Allergies: No Known Allergies (Unverified , 08/16/14) Subjective overnight events reviewed no distress on oxygen low flow and stable MD care reviewed Objective Vital Signs Noted Objective WDWN NAD reduced breath sounds bilaterally without rhonchi or wheeze [id number] without MRG NABS nontender no HSM no CCE confused and weak Microbiology Date/Time Source Procedure Growth Status 01/18/20 12:49 Nasopharynx Coronavirus COVID-19 PCR ([facility]) - Final Complete Laboratory Tests 01/20/20 05:50: White Blood Count 8.8, Red Blood Count 4.01L, Hemoglobin 12.8L, Hematocrit 36.5L , Mean Corpuscular Volume 91, Mean Corpuscular Hemoglobin 32.0H, Mean Corpuscular Hemoglobin Concent 35.2, Red Cell Distribution Width 11.6, Platelet Count 224, Mean Platelet Volume 5.3L, Neutrophils (%) (Auto) 80.7H, Lymphocytes (%) (Auto) 9.7L, Monocytes (%) (Auto) 7.5, Eosinophils (%) (Auto) 1.6, Basophils (%) (Auto) 0.5, Sodium Level 142, Potassium Level 4.0, Chloride Level 105, Carbon Dioxide Level 27, Anion Gap 10, Blood Urea Nitrogen 14, Creatinine 0.9, Estimat Glomerular Filtration Rate > 60, Glucose Level 164H, Calcium Level 8.2L, Magnesium Level 2.0, Total Bilirubin 0.4, Aspartate Amino Transf (AST/SGOT ) 22, Alanine Aminotransferase (ALT/SGPT) 29, Alkaline Phosphatase 48, Pro-B- Type Natriuretic Peptide 192H, Total Protein 5.7L, Albumin 2.9L, Globulin 2.8, Albumin/Globulin Ratio 1.0 Current Medications Medications (Trade) Dose Ordered Sig/Wayne Route PRN Reason Start Time Stop Time Status Last Admin Dose Admin Acetaminophen (Tylenol) 650 mg Q4H PRN ORAL Mild Pain (Pain Scale 1-3) 01/19/20 00:45 02/11/20 20:44 Amlodipine Besylate (Norvasc) 10 mg DAILY ORAL 01/19/20 09:00 02/15/20 08:59 01/20/20 10:20 Ascorbic Acid (Vitamin C) 250 mg DAILY ORAL 01/19/20 09:00 02/17/20 08:59 01/20/20 10:19 Aspirin (ASA) 81 mg DAILY ORAL 01/19/20 09:00 02/27/20 08:59 01/20/20 10:19 Clonidine HCl (Catapres Tab) 0.1 mg Q4H PRN ORAL For High Blood Pressure 01/19/20 01:30 04/13/20 13:29 Labetalol HCl (Normodyne) 200 mg Q12HR ORAL 01/19/20 09:00 02/16/20 08:59 01/20/20 10:20 Latanoprost (Xalatan) 1 drop BEDTIME BOTH EYES 01/19/20 21:00 02/12/20 00:59 01/19/20 20:42 Ondansetron HCl (Zofran) 4 mg Q4H PRN IVP Nausea & Vomiting 01/18/20 23:43 02/17/20 23:42 Subjective ROS Limited/Unobtainable: No Allergies: Coded Allergies: No Known Allergies (Unverified , 08/16/14) Objective Last 24 Hour Vital Signs Date Time Temp Pulse Resp B/P (MAP) Pulse Ox O2 Delivery O2 Flow Rate FiO2 01/21/20 21:45 167/77 01/21/20 21:11 53 167/77 01/21/20 20:00 98.3 59 18 167/77 (107) 100 01/21/20 16:00 98.4 63 18 144/66 (92) 100 01/21/20 12:00 98.0 60 18 132/69 (90) 100 01/21/20 09:10 60 138/74 01/21/20 09:10 60 138/74 01/21/20 09:00 Nasal Cannula 2.0 01/21/20 08:00 98.2 60 18 138/74 (95) 100 01/21/20 06:45 144/77 (99) 01/21/20 04:51 176/80 01/21/20 04:00 97.5 60 18 176/80 (112) 100 01/21/20 00:00 97.0 57 16 146/76 (99) 94 Intake and Output 01/20/20 01/21/20 19:00 07:00 Intake Total 200 ml 240 ml Balance 200 ml 240 ml Intake Oral 200 ml 240 ml # Voids 3 3 Current Medications Medications (Trade) Dose Ordered Sig/Wayne Route PRN Reason Start Time Stop Time Status Last Admin Dose Admin Acetaminophen (Tylenol) 650 mg Q4H PRN ORAL Mild Pain (Pain Scale 1-3) 01/19/20 00:45 02/11/20 20:44 Amlodipine Besylate (Norvasc) 10 mg DAILY ORAL 01/19/20 09:00 02/15/20 08:59 01/21/20 09:10 Ascorbic Acid (Vitamin C) 250 mg DAILY ORAL 01/19/20 09:00 02/17/20 08:59 01/21/20 09:11 Aspirin (ASA) 81 mg DAILY ORAL 01/19/20 09:00 02/27/20 08:59 01/21/20 09:11 Clonidine HCl (Catapres Tab) 0.1 mg Q4H PRN ORAL For High Blood Pressure 01/19/20 01:30 04/13/20 13:29 01/21/20 21:45 Labetalol HCl (Normodyne) 200 mg Q12HR ORAL 01/19/20 09:00 02/16/20 08:59 01/21/20 21:11 Latanoprost (Xalatan) 1 drop BEDTIME BOTH EYES 01/19/20 21:00 02/12/20 00:59 01/21/20 21:45 Ondansetron HCl (Zofran) 4 mg Q4H PRN IVP Nausea & Vomiting 01/18/20 23:43 02/17/20 23:42 Pravastatin Sodium (Pravachol) 20 mg BEDTIME ORAL 01/21/20 21:00 02/20/20 20:59 01/21/20 21:07 Vishal Kinsey MD Jan 21, 2020 22:21
--- NOTE | 2020-01-21 23:56 | NUR ---
NURSE NOTES: Patient is in stable condition. A/O x 1. Patient is mainly hungarian speaking. Able to follow directions or verbal cues, especially when turning and pericare. Patient is incontinent to both urine and bowel. Pictures taken. Stage 3 in the sacrum. Dressing changed. Bilateral edema noted in both upper extremities. Patient is saturating 100% With 2 L NC. SBP elevated at 160s. Clonidine given. Will continue to monitor pt.
[2020-01-22] VITALS (7 sets, daily range): BP systolic 122–150; BP diastolic 65–79
--- NOTE | 2020-01-22 04:15 | Progress Note ---
DATE: 01/21/2020 SUBJECTIVE: No new events. Oxygen saturation adequate on 2 liters. Status post hydroxychloroquine therapy with no cardiac complications. PHYSICAL EXAMINATION: VITALS: Blood pressure 138/74, pulse 60, respirations 18. LUNGS: Bilateral breath sounds. CARDIAC: Regular rhythm and rate. ABDOMEN: Soft. EXTREMITIES: Trace edema. IMPRESSION: 1. Ischemic cardiomyopathy. 2. Acute on chronic diastolic congestive heart failure, clinically compensated. 3. Moderate protein-calorie malnutrition, on supplements. 4. COVID-19 pneumonia, resolving. Maintain isolation, current cardiovascular regimen. Isolation precautions. Vishal Drummond M.D. DR: Joel JOB#: [id number] CC:
--- NOTE | 2020-01-22 07:06 | NUR ---
HAND-OFF: Report given to KAI Gordon. Patient in stable condition.
--- NOTE | 2020-01-22 07:32 | NUR ---
NURSE NOTES: Report received from Walter QUINN. Patient seen on rounds, AxOx1, Luxembourgish-speaking but able to comprehend some basic Tajik. On O2 at 2lpm via NC, sats at 100%. No signs of distress or pain. PIV on right forearm patent and intact. Noted trace edema on both upper extremities. Arms kept elevated. Bed low and locked, siderails up x2, call light within reach, will do frequent visual rounds.
[2020-01-22] MEDS: Aspirin Baby 81mg ORAL SCH (08:34)
[2020-01-22] MEDS: Ascorbic Acid 500mg tab ORAL SCH (08:34)
--- NOTE | 2020-01-22 10:15 | General Progress Note ---
Assessment/Plan Problem List: (1) UTI (urinary tract infection) ICD Codes: N39.0 - Urinary tract infection, site not specified SNOMED: 31478659 (2) Dehydration ICD Codes: E86.0 - Dehydration SNOMED: 35367833 (3) Fever ICD Codes: R50.9 - Fever, unspecified SNOMED: 682770315 (4) CAD (coronary artery disease) ICD Codes: I25.10 - Atherosclerotic heart disease of [place] coronary artery without angina pectoris SNOMED: 03673876 (5) Fever of unknown origin ICD Codes: R50.9 - Fever, unspecified SNOMED: 9797172 (6) COVID-19 ICD Codes: U07.1 - COVID-19 SNOMED: 757364256 (7) Uncontrolled diabetes mellitus ICD Codes: E11.9 - Type 2 diabetes mellitus without complications SNOMED: 961405055 (8) Pneumonia ICD Codes: J18.9 - Pneumonia, unspecified organism SNOMED: 889451868 (9) Sepsis ICD Codes: A41.9 - Sepsis, unspecified organism SNOMED: 57899365 Status: stable Assessment/Plan: Continue antibiotics per ID recommendations. Supplemental oxygen to keep sats greater than 92%. Monitor lytes- replace as needed Aspiration precautions. monitor bp and titrate as needed. dvt and stress ulcer prophylaxis. repeat covid 19 pcr Subjective ROS Limited/Unobtainable: No Constitutional: Reports: malaise, weakness HEENT: Reports: no symptoms Cardiovascular: Reports: no symptoms Respiratory: Reports: cough, shortness of breath Gastrointestinal/Abdominal: Reports: no symptoms Genitourinary: Reports: no symptoms Neurologic/Psychiatric: Reports: pre-existing deficit Endocrine: Reports: no symptoms Hematologic/Lymphatic: Reports: no symptoms Allergies: Coded Allergies: No Known Allergies (Unverified , 08/16/14) All Systems: reviewed and negative except above Subjective No overnight events. on med surg. Currently resting. O2 saturation remained stable on 2 L nasal cannula. Completed hydroxychloroquine. cxr with "streaky" basilar opacities. eating well. no fevers. covid 19 pcr neg Objective Last 24 Hour Vital Signs Date Time Temp Pulse Resp B/P (MAP) Pulse Ox O2 Delivery O2 Flow Rate FiO2 01/22/20 09:00 Nasal Cannula 2.0 01/22/20 08:34 60 147/76 01/22/20 08:34 60 147/76 01/22/20 08:00 98.3 60 18 144/77 (99) 100 01/22/20 07:06 99 Nasal Cannula 2.0 28 01/22/20 04:00 96.6 52 16 147/76 (99) 100 01/22/20 00:00 97.8 53 18 122/65 (84) 100 01/21/20 21:45 167/77 01/21/20 21:11 53 167/77 01/21/20 21:00 Nasal Cannula 2.0 01/21/20 20:00 98.3 59 18 167/77 (107) 100 01/21/20 19:56 100 Nasal Cannula 2.0 28 01/21/20 16:00 98.4 63 18 144/66 (92) 100 01/21/20 12:00 98.0 60 18 132/69 (90) 100 Intake and Output 01/21/20 01/22/20 19:00 07:00 Intake Total 480 ml 100 ml Balance 480 ml 100 ml Intake Oral 480 ml 100 ml # Voids 3 2 Height (Feet): 5 Height (Inches): 7.00 Weight (Pounds): 146 Objective General Appearance: WD/WN, alert Neck: supple Cardiovascular: normal rate, regular rhythm Respiratory/Chest: chest wall non-tender, lungs clear, normal breath sounds Abdomen: normal bowel sounds, non tender, soft, no organomegaly Edema: no edema noted Arm (L), no edema noted Arm (R), no edema noted Leg (L), no edema noted Leg (R), no edema noted Pedal (L), no edema noted Pedal (R), no edema noted Generalized Eliud Lizama MD Jan 22, 2020 10:15
--- NOTE | 2020-01-22 13:36 | Surgery Progress Note ---
Surgery Progress Note Subjective Additional Comments no acute events Objective Last 24 Hour Vital Signs Date Time Temp Pulse Resp B/P (MAP) Pulse Ox O2 Delivery O2 Flow Rate FiO2 01/22/20 12:00 98.6 64 19 138/79 (98) 99 01/22/20 12:00 98.6 64 19 138/79 (98) 99 01/22/20 09:00 Nasal Cannula 2.0 01/22/20 08:34 60 147/76 01/22/20 08:34 60 147/76 01/22/20 08:00 98.3 60 18 144/77 (99) 100 01/22/20 07:06 99 Nasal Cannula 2.0 28 01/22/20 04:00 96.6 52 16 147/76 (99) 100 01/22/20 00:00 97.8 53 18 122/65 (84) 100 01/21/20 21:45 167/77 01/21/20 21:11 53 167/77 01/21/20 21:00 Nasal Cannula 2.0 01/21/20 20:00 98.3 59 18 167/77 (107) 100 01/21/20 19:56 100 Nasal Cannula 2.0 28 01/21/20 16:00 98.4 63 18 144/66 (92) 100 I&O Intake and Output 01/21/20 01/22/20 19:00 07:00 Intake Total 480 ml 100 ml Balance 480 ml 100 ml Intake Oral 480 ml 100 ml # Voids 3 2 Dressing: other Wound: other Drains: other Cardiovascular: RSR Respiratory: decreased breath sounds Abdomen: soft, non-tender, present bowel sounds Extremities: no cyanosis Plan Problems: (1) COVID-19 Assessment & Plan: positive all precautions taken (2) UTI (urinary tract infection) (3) Dehydration (4) Fever (5) Hematuria (6) CAD (coronary artery disease) (7) Fever of unknown origin (8) Proteinuria (9) Malnutrition of moderate degree Assessment & Plan: DAILY ESTIMATED NEEDS: Needs based on cardiac, wound, DM/ 65kg 25-30 kcals/kg 2694-7826 total kcals 1.25-1.5 g protein/kg 81-98 g total protein 25-30 mL/kg 2054-5294 total fluid mLs NUTRITION DIAGNOSIS: * Swallowing difficulty R/T dysphagia, h/o CVA as evidenced by pt on liquify pureed, NTL per INSTRUMENTATION DESIGNER rec. CURRENT DIET:Cardiac liq puree w/ NTL PO DIET RECOMMENDATIONS: Low na diet/ texture per INSTRUMENTATION DESIGNER + continue Glucerna BID w/ meals ADDITIONAL RECOMMENDATIONS: * Calibrated bedscale wt for accurate CBW (143# per SNF) * Add GLUCERNA BID w/ meals w/ variable po * Wound care: as tolerated SATYA BID + Vit C 250mg daily * Monitor BGs closely, rec NISS for coverage * Consider appetite stimulant * Consult RD if temp non oral feeds are part of POC (10) Sepsis (11) Sepsis Assessment & Plan: Leukocytosis, febrile covid positive , on support evaluated and noted to have presented on admission with an open Sacral DTPI Base of wound is purple with small opening at sacrococcygeal area. Hyperpigmentation noted to cleft of buttocks /perianal area. considered as possible infection. unlikely uti, cxr okay on abx as per ID Apply Moisture Barrier Paste to Sacrum. Cover with Optifoam drsg. Change every 3 days and prn. Apply Moisture Barrier Paste to cleft of buttocks and scrotum with each incontinence care. Apply Cavilon Skin Barrier to both heels. Cover each heel with Optifoam drsg. Change every 7 days and prn. Reposition at least every 2hours or as tolerated. Off-load heels with pillow. APM/ERASMO Mattress overlay. cont current care stable (12) Pneumonia (13) Uncontrolled diabetes mellitus Kristopher Ayala Jan 22, 2020 13:36
--- NOTE | 2020-01-22 15:40 | Infectious Diseases Prog Note ---
Assessment/Plan Assessment/Plan A 1. ?Covid19 pneumonia -s.p hydroxychloroquine rx _ Covid19 test: negative 2. coag neg staph in blood likely contaminated 3. diabetes mellitus 4. hypertension 5. CVA 6. 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 observe off antibiotics 2. continue isolation Subjective ROS Limited/Unobtainable: Yes Constitutional: Denies: fever Allergies: Coded Allergies: No Known Allergies (Unverified , 08/16/14) Objective Vital Signs Last 24 Hour Vital Signs Date Time Temp Pulse Resp B/P (MAP) Pulse Ox O2 Delivery O2 Flow Rate FiO2 01/22/20 12:00 98.6 64 19 138/79 (98) 99 01/22/20 12:00 98.6 64 19 138/79 (98) 99 01/22/20 09:00 Nasal Cannula 2.0 01/22/20 08:34 60 147/76 01/22/20 08:34 60 147/76 01/22/20 08:00 98.3 60 18 144/77 (99) 100 01/22/20 07:06 99 Nasal Cannula 2.0 28 01/22/20 04:00 96.6 52 16 147/76 (99) 100 01/22/20 00:00 97.8 53 18 122/65 (84) 100 01/21/20 21:45 167/77 01/21/20 21:11 53 167/77 01/21/20 21:00 Nasal Cannula 2.0 01/21/20 20:00 98.3 59 18 167/77 (107) 100 01/21/20 19:56 100 Nasal Cannula 2.0 28 01/21/20 16:00 98.4 63 18 144/66 (92) 100 Height (Feet): 5 Height (Inches): 7.00 Weight (Pounds): 146 General Appearance: no acute distress HEENT: mucous membranes moist Respiratory/Chest: other - oxygen by nasal cannula Cardiovascular: normal rate Abdomen: soft, non tender Extremities: no edema Neurologic/Psychiatric: alert, responsive Current Medications Medications (Trade) Dose Ordered Sig/Wayne Route PRN Reason Start Time Stop Time Status Last Admin Dose Admin Acetaminophen (Tylenol) 650 mg Q4H PRN ORAL Mild Pain (Pain Scale 1-3) 01/19/20 00:45 02/11/20 20:44 Amlodipine Besylate (Norvasc) 10 mg DAILY ORAL 01/19/20 09:00 02/15/20 08:59 01/22/20 08:34 Ascorbic Acid (Vitamin C) 250 mg DAILY ORAL 01/19/20 09:00 02/17/20 08:59 01/22/20 08:34 Aspirin (ASA) 81 mg DAILY ORAL 01/19/20 09:00 02/27/20 08:59 01/22/20 08:34 Clonidine HCl (Catapres Tab) 0.1 mg Q4H PRN ORAL For High Blood Pressure 01/19/20 01:30 04/13/20 13:29 01/21/20 21:45 Labetalol HCl (Normodyne) 200 mg Q12HR ORAL 01/19/20 09:00 02/16/20 08:59 01/22/20 08:34 Latanoprost (Xalatan) 1 drop BEDTIME BOTH EYES 01/19/20 21:00 02/12/20 00:59 01/21/20 21:45 Ondansetron HCl (Zofran) 4 mg Q4H PRN IVP Nausea & Vomiting 01/18/20 23:43 02/17/20 23:42 Pravastatin Sodium (Pravachol) 20 mg BEDTIME ORAL 01/21/20 21:00 02/20/20 20:59 01/21/20 21:07 Lionel Chao MD Jan 22, 2020 15:40
--- NOTE | 2020-01-22 19:40 | NUR ---
HAND-OFF: Report given to KAI Perez.
--- NOTE | 2020-01-22 19:49 | NUR ---
NURSE NOTES: Patient received in bed, asleep, on o2 via NC, even and unlabored breathing. Bed locked in low position. Bed alarm on. Will continue to monitor.
[2020-01-22] MEDS: Latanoprost 0.005% Opth 2.5ml Soln BOTH EYES SCH (20:30)
--- NOTE | 2020-01-22 22:33 | Pulmonology Progress Note ---
Assessment/Plan Assessment/Plan Pulmonary Progress Note Assessment/Plan ASSESSMENT: COVID-19 pneumonia, respiratory failure, acute [place] hypertension, diabetes, hypothyroidism, hypernatremia protein calorie malnutrition bacteremia PLAN respiratory noted and care reviewed oxygen as needed; low flow; keep sats >92% ID review and recommendations monitor as is aspiration precautions as is overall minimal congestion at present review and monitor for fevers or deterioration impression, plan, and exam edited and reviewed in detail care discussed with RN. Subjective Allergies: Coded Allergies: No Known Allergies (Unverified , 08/16/14) Subjective overnight events reviewed no distress on oxygen low flow and stable MD care reviewed Objective Vital Signs Noted Objective WDWN NAD reduced breath sounds bilaterally without rhonchi or wheeze [id number] without MRG NABS nontender no HSM no CCE confused and weak Microbiology Date/Time Source Procedure Growth Status 01/18/20 12:49 Nasopharynx Coronavirus COVID-19 PCR ([facility]) - Final Complete Laboratory Tests Noted Subjective ROS Limited/Unobtainable: No Allergies: Coded Allergies: No Known Allergies (Unverified , 08/16/14) Objective Last 24 Hour Vital Signs Date Time Temp Pulse Resp B/P (MAP) Pulse Ox O2 Delivery O2 Flow Rate FiO2 01/22/20 20:30 60 150/69 01/22/20 20:00 97.8 60 20 150/66 (94) 97 01/22/20 16:00 96.7 65 19 134/66 (88) 100 01/22/20 12:00 98.6 64 19 138/79 (98) 99 01/22/20 12:00 98.6 64 19 138/79 (98) 99 01/22/20 09:00 Nasal Cannula 2.0 01/22/20 08:34 60 147/76 01/22/20 08:34 60 147/76 01/22/20 08:00 98.3 60 18 144/77 (99) 100 01/22/20 07:06 99 Nasal Cannula 2.0 28 01/22/20 04:00 96.6 52 16 147/76 (99) 100 01/22/20 00:00 97.8 53 18 122/65 (84) 100 Intake and Output 01/21/20 01/22/20 19:00 07:00 Intake Total 480 ml 100 ml Balance 480 ml 100 ml Intake Oral 480 ml 100 ml # Voids 3 2 Current Medications Medications (Trade) Dose Ordered Sig/Wayne Route PRN Reason Start Time Stop Time Status Last Admin Dose Admin Acetaminophen (Tylenol) 650 mg Q4H PRN ORAL Mild Pain (Pain Scale 1-3) 01/19/20 00:45 02/11/20 20:44 Amlodipine Besylate (Norvasc) 10 mg DAILY ORAL 01/19/20 09:00 02/15/20 08:59 01/22/20 08:34 Ascorbic Acid (Vitamin C) 250 mg DAILY ORAL 01/19/20 09:00 02/17/20 08:59 01/22/20 08:34 Aspirin (ASA) 81 mg DAILY ORAL 01/19/20 09:00 02/27/20 08:59 01/22/20 08:34 Clonidine HCl (Catapres Tab) 0.1 mg Q4H PRN ORAL For High Blood Pressure 01/19/20 01:30 04/13/20 13:29 01/21/20 21:45 Labetalol HCl (Normodyne) 200 mg Q12HR ORAL 01/19/20 09:00 02/16/20 08:59 01/22/20 20:30 Latanoprost (Xalatan) 1 drop BEDTIME BOTH EYES 01/19/20 21:00 02/12/20 00:59 01/22/20 20:30 Ondansetron HCl (Zofran) 4 mg Q4H PRN IVP Nausea & Vomiting 01/18/20 23:43 02/17/20 23:42 Pravastatin Sodium (Pravachol) 20 mg BEDTIME ORAL 01/21/20 21:00 02/20/20 20:59 01/22/20 20:30 Vishal Kinsey MD Jan 22, 2020 22:33
[2020-01-23 04:00] VITALS: BP 150/83
--- NOTE | 2020-01-23 06:45 | NUR ---
NURSE NOTES: Patient soiled. Patient is cleaned and dressings changed.
--- NOTE | 2020-01-23 06:59 | Progress Note ---
DATE: 01/22/2020 CARDIOLOGY PROGRESS NOTE SUBJECTIVE: The patient is on low-flow nasal oxygen, saturating 100%. OBJECTIVE: LUNGS: Bilateral breath sounds. CARDIAC: Regular rhythm and rate. Normal S1, S2. ABDOMEN: Soft. EXTREMITIES: No edema. IMPRESSION: 1. COVID-19 pneumonia. 2. Ischemic cardiomyopathy. 3. Acute on chronic diastolic congestive heart failure. 4. Acute myocardial ischemia, recovered. 5. Paroxysmal sinus tachycardia, resolved. 6. Rehydrated and corrected electrolytes. PLAN: 1. Recheck lab studies. 2. Isolation. 3. Maintain current cardiovascular regimen. Vishal Drummond M.D. DR: Jayden JOB#: [id number] CC:
--- NOTE | 2020-01-23 07:15 | NUR ---
HAND-OFF: Report given to Isis QUINN.
[2020-01-23 08:00] VITALS: BP 164/81
[2020-01-23 08:52] LABS: BASOPHILS % (AUTO) 0.3 % (0.0-2.0); EOSINOPHILS % (AUTO) 0.7 % (0.0-3.0); HEMATOCRIT 39.7 % (42.0-52.0); HEMOGLOBIN 14.2 G/DL (14.2-18.0); LYMPHOCYTES % (AUTO) 9.8 % (20.0-45.0); MEAN CORPUSCULAR VOLUME 90 FL (80-99); MONOCYTES % (AUTO) 4.7 % (1.0-10.0); NEUTROPHILS % (AUTO) 84.6 % (45.0-75.0); PLATELET COUNT 260 K/UL (150-450); RED CELL DISTRIBUTION WIDTH 11.6 % (11.6-14.8)
[2020-01-23] MEDS: Aspirin Baby 81mg ORAL SCH (08:55)
[2020-01-23] MEDS: Ascorbic Acid 500mg tab ORAL SCH (08:55)
[2020-01-23 09:06] LABS: ALANINE AMINOTRANSFERASE 20 U/L (12-78); ALBUMIN 3.2 G/DL (3.4-5.0); ALKALINE PHOSPHATASE 55 U/L (46-116); ANION GAP 6 mmol/L (5-15); ASPARTATE AMINO TRANSFERASE 19 U/L (15-37); BILIRUBIN,TOTAL 0.3 MG/DL (0.2-1.0); BLOOD UREA NITROGEN 19 mg/dL (7-18); CALCIUM 8.9 MG/DL (8.5-10.1); CARBON DIOXIDE 30 MMOL/L (21-32); CHLORIDE 99 MMOL/L (98-107); CREATININE 0.8 MG/DL (0.55-1.30); POTASSIUM 3.7 MMOL/L (3.5-5.1); SODIUM 135 MMOL/L (136-145)
--- NOTE | 2020-01-23 10:15 | Surgery Progress Note ---
Surgery Progress Note Subjective Additional Comments labs noted exam stable Objective Last 24 Hour Vital Signs Date Time Temp Pulse Resp B/P (MAP) Pulse Ox O2 Delivery O2 Flow Rate FiO2 01/23/20 08:55 63 164/81 01/23/20 08:55 63 164/81 01/23/20 08:00 97.4 63 18 164/81 (108) 100 01/23/20 04:00 98.8 56 20 150/83 (105) 98 01/22/20 23:44 98.4 61 20 145/72 (96) 97 01/22/20 21:00 Nasal Cannula 2.0 01/22/20 20:30 60 150/69 01/22/20 20:00 97.8 60 20 150/66 (94) 97 01/22/20 16:00 96.7 65 19 134/66 (88) 100 01/22/20 12:00 98.6 64 19 138/79 (98) 99 01/22/20 12:00 98.6 64 19 138/79 (98) 99 I&O Intake and Output 01/22/20 01/23/20 19:00 07:00 Intake Total 300 ml 240 ml Output Total 450 ml Balance -150 ml 240 ml Intake Oral 300 ml 240 ml Output Urine Total 450 ml # Voids 2 # Bowel Movements 1 Dressing: saturated Wound: clean Cardiovascular: RSR Respiratory: clear, decreased breath sounds Abdomen: soft, non-tender, present bowel sounds Extremities: no tenderness, no cyanosis Laboratory Tests Test 01/23/20 08:30 White Blood Count 11.0 K/UL (4.8-10.8) H Red Blood Count 4.40 M/UL (4.70-6.10) L Hemoglobin 14.2 G/DL (14.2-18.0) Hematocrit 39.7 % (42.0-52.0) L Mean Corpuscular Volume 90 FL (80-99) Mean Corpuscular Hemoglobin 32.3 PG (27.0-31.0) H Mean Corpuscular Hemoglobin Concent 35.9 G/DL (32.0-36.0) Red Cell Distribution Width 11.6 % (11.6-14.8) Platelet Count 260 K/UL (150-450) Mean Platelet Volume 5.6 FL (6.5-10.1) L Neutrophils (%) (Auto) 84.6 % (45.0-75.0) H Lymphocytes (%) (Auto) 9.8 % (20.0-45.0) L Monocytes (%) (Auto) 4.7 % (1.0-10.0) Eosinophils (%) (Auto) 0.7 % (0.0-3.0) Basophils (%) (Auto) 0.3 % (0.0-2.0) Sodium Level 135 MMOL/L (136-145) L Potassium Level 3.7 MMOL/L (3.5-5.1) Chloride Level 99 MMOL/L (98-107) Carbon Dioxide Level 30 MMOL/L (21-32) Anion Gap 6 mmol/L (5-15) Blood Urea Nitrogen 19 mg/dL (7-18) H Creatinine 0.8 MG/DL (0.55-1.30) Estimat Glomerular Filtration Rate > 60 mL/min (>60) Glucose Level 221 MG/DL (74-106) H Calcium Level 8.9 MG/DL (8.5-10.1) Magnesium Level 1.9 MG/DL (1.8-2.4) Total Bilirubin 0.3 MG/DL (0.2-1.0) Aspartate Amino Transf (AST/SGOT) 19 U/L (15-37) Alanine Aminotransferase (ALT/SGPT) 20 U/L (12-78) Alkaline Phosphatase 55 U/L (46-116) Pro-B-Type Natriuretic Peptide 238 pg/mL (0-125) H Total Protein 6.5 G/DL (6.4-8.2) Albumin 3.2 G/DL (3.4-5.0) L Globulin 3.3 g/dL Albumin/Globulin Ratio 1.0 (1.0-2.7) Plan Problems: (1) COVID-19 Assessment & Plan: positive all precautions taken (2) UTI (urinary tract infection) (3) Dehydration (4) Fever (5) Hematuria (6) CAD (coronary artery disease) (7) Fever of unknown origin (8) Proteinuria (9) Malnutrition of moderate degree Assessment & Plan: DAILY ESTIMATED NEEDS: Needs based on cardiac, wound, DM/ 65kg 25-30 kcals/kg 6568-9405 total kcals 1.25-1.5 g protein/kg 81-98 g total protein 25-30 mL/kg 5432-8211 total fluid mLs NUTRITION DIAGNOSIS: * Swallowing difficulty R/T dysphagia, h/o CVA as evidenced by pt on liquify pureed, NTL per [employer] rec. CURRENT DIET:Cardiac liq puree w/ NTL PO DIET RECOMMENDATIONS: Low na diet/ texture per [employer] + continue Glucerna BID w/ meals ADDITIONAL RECOMMENDATIONS: * Calibrated bedscale wt for accurate CBW (143# per SNF) * Add GLUCERNA BID w/ meals w/ variable po * Wound care: as tolerated SATYA BID + Vit C 250mg daily * Monitor BGs closely, rec NISS for coverage * Consider appetite stimulant * Consult RD if temp non oral feeds are part of POC (10) Sepsis (11) Sepsis Assessment & Plan: Leukocytosis, febrile covid positive , on support evaluated and noted to have presented on admission with an open Sacral DTPI Base of wound is purple with small opening at sacrococcygeal area. Hyperpigmentation noted to cleft of buttocks /perianal area. considered as possible infection. unlikely uti, cxr okay on abx as per ID Apply Moisture Barrier Paste to Sacrum. Cover with Optifoam drsg. Change every 3 days and prn. Apply Moisture Barrier Paste to cleft of buttocks and scrotum with each incontinence care. Apply Cavilon Skin Barrier to both heels. Cover each heel with Optifoam drsg. Change every 7 days and prn. Reposition at least every 2hours or as tolerated. Off-load heels with pillow. APM/ERASMO Mattress overlay. cont current care stable (12) Pneumonia (13) Uncontrolled diabetes mellitus Kristopher Ayala Jan 23, 2020 10:15
--- NOTE | 2020-01-23 10:25 | General Progress Note ---
Assessment/Plan Problem List: (1) UTI (urinary tract infection) ICD Codes: N39.0 - Urinary tract infection, site not specified SNOMED: 87395317 (2) Dehydration ICD Codes: E86.0 - Dehydration SNOMED: 39246596 (3) Fever ICD Codes: R50.9 - Fever, unspecified SNOMED: 238614820 (4) CAD (coronary artery disease) ICD Codes: I25.10 - Atherosclerotic heart disease of [place] coronary artery without angina pectoris SNOMED: 48814340 (5) Fever of unknown origin ICD Codes: R50.9 - Fever, unspecified SNOMED: 7824357 (6) COVID-19 ICD Codes: U07.1 - COVID-19 SNOMED: 088451650 (7) Uncontrolled diabetes mellitus ICD Codes: E11.9 - Type 2 diabetes mellitus without complications SNOMED: 917525995 (8) Pneumonia ICD Codes: J18.9 - Pneumonia, unspecified organism SNOMED: 940449122 (9) Sepsis ICD Codes: A41.9 - Sepsis, unspecified organism SNOMED: 20259132 Status: stable Assessment/Plan: Continue antibiotics per ID recommendations. Supplemental oxygen to keep sats greater than 92%. Monitor lytes- replace as needed Aspiration precautions. monitor bp and titrate as needed. dvt and stress ulcer prophylaxis. repeat covid 19 pcr Subjective ROS Limited/Unobtainable: No Constitutional: Reports: malaise, weakness HEENT: Reports: no symptoms Cardiovascular: Reports: no symptoms Respiratory: Reports: cough, shortness of breath Gastrointestinal/Abdominal: Reports: no symptoms Genitourinary: Reports: no symptoms Neurologic/Psychiatric: Reports: pre-existing deficit Endocrine: Reports: no symptoms Hematologic/Lymphatic: Reports: no symptoms Allergies: Coded Allergies: No Known Allergies (Unverified , 08/16/14) All Systems: reviewed and negative except above Subjective No overnight events. on med surg. Currently resting. O2 saturation remained stable on 2 L nasal cannula. Completed hydroxychloroquine. eating well. no fevers. covid 19 pcr neg x 1. 2nd test pending Objective Last 24 Hour Vital Signs Date Time Temp Pulse Resp B/P (MAP) Pulse Ox O2 Delivery O2 Flow Rate FiO2 01/23/20 08:55 63 164/81 01/23/20 08:55 63 164/81 01/23/20 08:00 97.4 63 18 164/81 (108) 100 01/23/20 04:00 98.8 56 20 150/83 (105) 98 01/22/20 23:44 98.4 61 20 145/72 (96) 97 01/22/20 21:00 Nasal Cannula 2.0 01/22/20 20:30 60 150/69 01/22/20 20:00 97.8 60 20 150/66 (94) 97 01/22/20 16:00 96.7 65 19 134/66 (88) 100 01/22/20 12:00 98.6 64 19 138/79 (98) 99 01/22/20 12:00 98.6 64 19 138/79 (98) 99 Intake and Output 01/22/20 01/23/20 19:00 07:00 Intake Total 300 ml 240 ml Output Total 450 ml Balance -150 ml 240 ml Intake Oral 300 ml 240 ml Output Urine Total 450 ml # Voids 2 # Bowel Movements 1 Laboratory Tests 01/23/20 08:30: White Blood Count 11.0H, Red Blood Count 4.40L, Hemoglobin 14.2, Hematocrit 39.7L, Mean Corpuscular Volume 90, Mean Corpuscular Hemoglobin 32.3H, Mean Corpuscular Hemoglobin Concent 35.9, Red Cell Distribution Width 11.6, Platelet Count 260, Mean Platelet Volume 5.6L, Neutrophils (%) (Auto) 84.6H, Lymphocytes (%) (Auto) 9.8L, Monocytes (%) (Auto) 4.7, Eosinophils (%) (Auto) 0.7, Basophils (%) (Auto) 0.3, Sodium Level 135L, Potassium Level 3.7, Chloride Level 99, Carbon Dioxide Level 30, Anion Gap 6, Blood Urea Nitrogen 19H, Creatinine 0.8, Estimat Glomerular Filtration Rate > 60, Glucose Level 221H, Calcium Level 8.9, Magnesium Level 1.9, Total Bilirubin 0.3, Aspartate Amino Transf (AST/SGOT) 19, Alanine Aminotransferase (ALT/SGPT) 20, Alkaline Phosphatase 55, Pro-B-Type Natriuretic Peptide 238H, Total Protein 6.5, Albumin 3.2L, Globulin 3.3, Albumin/Globulin Ratio 1.0 Height (Feet): 5 Height (Inches): 7.00 Weight (Pounds): 146 Objective General Appearance: WD/WN, alert Neck: supple Cardiovascular: normal rate, regular rhythm Respiratory/Chest: chest wall non-tender, lungs clear, normal breath sounds Abdomen: normal bowel sounds, non tender, soft, no organomegaly Edema: no edema noted Arm (L), no edema noted Arm (R), no edema noted Leg (L), no edema noted Leg (R), no edema noted Pedal (L), no edema noted Pedal (R), no edema noted Generalized Eliud Lizama MD Jan 23, 2020 10:25
--- NOTE | 2020-01-23 11:06 | Pulmonology Progress Note ---
Assessment/Plan Assessment/Plan ASSESSMENT: COVID-19 pneumonia, respiratory failure, acute ND hypertension, diabetes, hypothyroidism, hypernatremia protein calorie malnutrition bacteremia PLAN respiratory noted and no worsening in status oxygen as needed; low flow; keep sats >92% ID review and recommendations reviewed monitor for worsening congestion aspiration precautions as is events noted; no recent imaging review and monitor for fevers or deterioration impression, plan, and exam edited and reviewed in detail care discussed with RN. Subjective ROS Limited/Unobtainable: Yes Allergies: Coded Allergies: No Known Allergies (Unverified , 08/16/14) Subjective overnight events reviewed no distress on oxygen low flow and weekend events noted MD care reviewed Objective Last 24 Hour Vital Signs Date Time Temp Pulse Resp B/P (MAP) Pulse Ox O2 Delivery O2 Flow Rate FiO2 01/23/20 09:00 Nasal Cannula 2.0 01/23/20 08:55 63 164/81 01/23/20 08:55 63 164/81 01/23/20 08:00 97.4 63 18 164/81 (108) 100 01/23/20 04:00 98.8 56 20 150/83 (105) 98 01/22/20 23:44 98.4 61 20 145/72 (96) 97 01/22/20 21:00 Nasal Cannula 2.0 01/22/20 20:30 60 150/69 01/22/20 20:00 97.8 60 20 150/66 (94) 97 01/22/20 16:00 96.7 65 19 134/66 (88) 100 01/22/20 12:00 98.6 64 19 138/79 (98) 99 01/22/20 12:00 98.6 64 19 138/79 (98) 99 Intake and Output 01/22/20 01/23/20 19:00 07:00 Intake Total 300 ml 240 ml Output Total 450 ml Balance -150 ml 240 ml Intake Oral 300 ml 240 ml Output Urine Total 450 ml # Voids 2 # Bowel Movements 1 Objective WDWN NAD reduced breath sounds bilaterally without rhonchi or wheeze [id number] without MRG NABS nontender no HSM no CCE confused and weak Laboratory Tests 01/23/20 08:30: White Blood Count 11.0H, Red Blood Count 4.40L, Hemoglobin 14.2, Hematocrit 39.7L, Mean Corpuscular Volume 90, Mean Corpuscular Hemoglobin 32.3H, Mean Corpuscular Hemoglobin Concent 35.9, Red Cell Distribution Width 11.6, Platelet Count 260, Mean Platelet Volume 5.6L, Neutrophils (%) (Auto) 84.6H, Lymphocytes (%) (Auto) 9.8L, Monocytes (%) (Auto) 4.7, Eosinophils (%) (Auto) 0.7, Basophils (%) (Auto) 0.3, Sodium Level 135L, Potassium Level 3.7, Chloride Level 99, Carbon Dioxide Level 30, Anion Gap 6, Blood Urea Nitrogen 19H, Creatinine 0.8, Estimat Glomerular Filtration Rate > 60, Glucose Level 221H, Calcium Level 8.9, Magnesium Level 1.9, Total Bilirubin 0.3, Aspartate Amino Transf (AST/SGOT) 19, Alanine Aminotransferase (ALT/SGPT) 20, Alkaline Phosphatase 55, Pro-B-Type Natriuretic Peptide 238H, Total Protein 6.5, Albumin 3.2L, Globulin 3.3, Albumin/Globulin Ratio 1.0 Current Medications Medications (Trade) Dose Ordered Sig/Wayne Route PRN Reason Start Time Stop Time Status Last Admin Dose Admin Acetaminophen (Tylenol) 650 mg Q4H PRN ORAL Mild Pain (Pain Scale 1-3) 01/19/20 00:45 02/11/20 20:44 Amlodipine Besylate (Norvasc) 10 mg DAILY ORAL 01/19/20 09:00 02/15/20 08:59 01/23/20 08:55 Ascorbic Acid (Vitamin C) 250 mg DAILY ORAL 01/19/20 09:00 02/17/20 08:59 01/23/20 08:55 Aspirin (ASA) 81 mg DAILY ORAL 01/19/20 09:00 02/27/20 08:59 01/23/20 08:55 Clonidine HCl (Catapres Tab) 0.1 mg Q4H PRN ORAL For High Blood Pressure 01/19/20 01:30 04/13/20 13:29 01/21/20 21:45 Labetalol HCl (Normodyne) 200 mg Q12HR ORAL 01/19/20 09:00 02/16/20 08:59 01/23/20 08:55 Latanoprost (Xalatan) 1 drop BEDTIME BOTH EYES 01/19/20 21:00 02/12/20 00:59 01/22/20 20:30 Ondansetron HCl (Zofran) 4 mg Q4H PRN IVP Nausea & Vomiting 01/18/20 23:43 02/17/20 23:42 Pravastatin Sodium (Pravachol) 20 mg BEDTIME ORAL 01/21/20 21:00 02/20/20 20:59 01/22/20 20:30 Gustavo Jorgensen MD Jan 23, 2020 11:06
--- NOTE | 2020-01-23 11:20 | Infectious Diseases Prog Note ---
Assessment/Plan Assessment/Plan antibiotics none A 1. Covid 19 pneumonia s.p hydroxychloroquine rx test negative 01.18.20 2. coag neg staph in blood likely contaminated 3. diabetes mellitus 4. hypertension 5. CVA 6. leucocytosis resolved P 1. observe off antibiotics 2. continue isolation Subjective ROS Limited/Unobtainable: Yes Allergies: Coded Allergies: No Known Allergies (Unverified , 08/16/14) Objective Vital Signs Last 24 Hour Vital Signs Date Time Temp Pulse Resp B/P (MAP) Pulse Ox O2 Delivery O2 Flow Rate FiO2 01/23/20 09:00 Nasal Cannula 2.0 01/23/20 08:55 63 164/81 01/23/20 08:55 63 164/81 01/23/20 08:00 97.4 63 18 164/81 (108) 100 01/23/20 04:00 98.8 56 20 150/83 (105) 98 01/22/20 23:44 98.4 61 20 145/72 (96) 97 01/22/20 21:00 Nasal Cannula 2.0 01/22/20 20:30 60 150/69 01/22/20 20:00 97.8 60 20 150/66 (94) 97 01/22/20 16:00 96.7 65 19 134/66 (88) 100 01/22/20 12:00 98.6 64 19 138/79 (98) 99 01/22/20 12:00 98.6 64 19 138/79 (98) 99 Height (Feet): 5 Height (Inches): 7.00 Weight (Pounds): 146 Laboratory Tests Test 01/23/20 08:30 White Blood Count 11.0 K/UL (4.8-10.8) H Red Blood Count 4.40 M/UL (4.70-6.10) L Hemoglobin 14.2 G/DL (14.2-18.0) Hematocrit 39.7 % (42.0-52.0) L Mean Corpuscular Volume 90 FL (80-99) Mean Corpuscular Hemoglobin 32.3 PG (27.0-31.0) H Mean Corpuscular Hemoglobin Concent 35.9 G/DL (32.0-36.0) Red Cell Distribution Width 11.6 % (11.6-14.8) Platelet Count 260 K/UL (150-450) Mean Platelet Volume 5.6 FL (6.5-10.1) L Neutrophils (%) (Auto) 84.6 % (45.0-75.0) H Lymphocytes (%) (Auto) 9.8 % (20.0-45.0) L Monocytes (%) (Auto) 4.7 % (1.0-10.0) Eosinophils (%) (Auto) 0.7 % (0.0-3.0) Basophils (%) (Auto) 0.3 % (0.0-2.0) Sodium Level 135 MMOL/L (136-145) L Potassium Level 3.7 MMOL/L (3.5-5.1) Chloride Level 99 MMOL/L (98-107) Carbon Dioxide Level 30 MMOL/L (21-32) Anion Gap 6 mmol/L (5-15) Blood Urea Nitrogen 19 mg/dL (7-18) H Creatinine 0.8 MG/DL (0.55-1.30) Estimat Glomerular Filtration Rate > 60 mL/min (>60) Glucose Level 221 MG/DL (74-106) H Calcium Level 8.9 MG/DL (8.5-10.1) Magnesium Level 1.9 MG/DL (1.8-2.4) Total Bilirubin 0.3 MG/DL (0.2-1.0) Aspartate Amino Transf (AST/SGOT) 19 U/L (15-37) Alanine Aminotransferase (ALT/SGPT) 20 U/L (12-78) Alkaline Phosphatase 55 U/L (46-116) Pro-B-Type Natriuretic Peptide 238 pg/mL (0-125) H Total Protein 6.5 G/DL (6.4-8.2) Albumin 3.2 G/DL (3.4-5.0) L Globulin 3.3 g/dL Albumin/Globulin Ratio 1.0 (1.0-2.7) Current Medications Medications (Trade) Dose Ordered Sig/Wayne Route PRN Reason Start Time Stop Time Status Last Admin Dose Admin Acetaminophen (Tylenol) 650 mg Q4H PRN ORAL Mild Pain (Pain Scale 1-3) 01/19/20 00:45 02/11/20 20:44 Amlodipine Besylate (Norvasc) 10 mg DAILY ORAL 01/19/20 09:00 02/15/20 08:59 01/23/20 08:55 Ascorbic Acid (Vitamin C) 250 mg DAILY ORAL 01/19/20 09:00 02/17/20 08:59 01/23/20 08:55 Aspirin (ASA) 81 mg DAILY ORAL 01/19/20 09:00 02/27/20 08:59 01/23/20 08:55 Clonidine HCl (Catapres Tab) 0.1 mg Q4H PRN ORAL For High Blood Pressure 01/19/20 01:30 04/13/20 13:29 01/21/20 21:45 Labetalol HCl (Normodyne) 200 mg Q12HR ORAL 01/19/20 09:00 02/16/20 08:59 01/23/20 08:55 Latanoprost (Xalatan) 1 drop BEDTIME BOTH EYES 01/19/20 21:00 02/12/20 00:59 01/22/20 20:30 Ondansetron HCl (Zofran) 4 mg Q4H PRN IVP Nausea & Vomiting 01/18/20 23:43 02/17/20 23:42 Pravastatin Sodium (Pravachol) 20 mg BEDTIME ORAL 01/21/20 21:00 02/20/20 20:59 01/22/20 20:30 Radames Morales MD Jan 23, 2020 11:20
[2020-01-23 12:00] VITALS: BP 141/75
[2020-01-23 16:00] VITALS: BP 154/75
--- NOTE | 2020-01-23 16:51 | NUR ---
CASE MANAGEMENT:REVIEW SI;COVID-19 PNA. SEPSIS. UTI. AC RESP FAILURE. BACTEREMIA. 98.8 56 164/81 97% 2L NC WBC 11.0 NA 135 BG 221 BNP 238 ALB 3.2 IS;VITAMIN C PO QD ASA PO WD CLONIDINE PO Q4 HRS PRN LEBETALOL PO Q12 HRS MED SURG STATUS DCP;FROM [facility] REHAB PLAN;REPEAT COVID-19 TEST ISOLATION PRECAUTIONS O2 PRN TO KEEP O2 SAT >92%
--- NOTE | 2020-01-23 17:00 | NUR ---
[facility] ARTIST NOTE CALL TO DR CASTAÑEDA IN RE TO REPEAT COVID-[address]. [address] CASTAÑEDA, COVID-19 ORDER IN [facility]. CM CONFIRMED ORDER IS ACTIVE AND CONVEYED INFO TO GERALD CHAPA TO FOLLOW UP WITH ORDER AND CARRY OUT.
[2020-01-23] MEDS: Docusate 250mg cap ORAL SCH (18:34)
--- NOTE | 2020-01-23 19:36 | NUR ---
HAND-OFF: Report given to Katerine QUINN. Endorsed that we are out of testing kits and patient needs to be re-swabbed for 2nd Covid PCR.
--- NOTE | 2020-01-23 19:53 | NUR ---
NURSE NOTES: Received patient in bed, alert, oriented x1, on oxygen at 2 liters/min, patient speaks [place]ian, noted with bilateral upper extremities swelling, condom cath is applied, secured, draining well. IV site is clean dry and intact. Call light is within reach, bed is lowered, locked, alarm is on. Will continue to monitor for comfort and safety.
[2020-01-23 20:00] VITALS: BP 148/74
[2020-01-23] MEDS: Latanoprost 0.005% Opth 2.5ml Soln BOTH EYES SCH (21:11)
[2020-01-23 21:47] VITALS: BP 150/86
[2020-01-24] VITALS: BP 108/67
[2020-01-24 04:00] VITALS: BP 149/67
--- NOTE | 2020-01-24 07:00 | Progress Note ---
DATE: 01/23/2020 CARDIOLOGY PROGRESS NOTE SUBJECTIVE: No new events. Adequate oxygenation on low-flow nasal cannula. Blood pressure parameters are increasing. PHYSICAL EXAMINATION: LUNGS: Good breath sounds. No wheezing. CARDIAC: Regular rhythm and rate. Normal S1, S2. ABDOMEN: Soft. EXTREMITIES: No edema. LABORATORY DATA: Potassium 3.7, magnesium 1.9. Pro-natriuretic peptide 238. IMPRESSION: 1. Ischemic cardiomyopathy, stable angina. 2. Resolving COVID-19 pneumonia, status post hydroxychloroquine therapy with cardiac toxicity. 3. Urinary tract infection with sepsis. 4. Resolving metabolic and toxic encephalopathies. 5. Hypertensive heart disease with diastolic congestive heart failure, clinically compensated. PLAN: Taper oxygen. Advance antihypertensive therapy. Maintain antianginal regimen. No need for cardiac monitoring at this time. Await clearance of COVID-19 virus for discharge. Angiotensin-converting enzyme inhibitor added. Vishal Drummond M.D. DR: KATEY JOB#: [id number] CC:
--- NOTE | 2020-01-24 07:40 | NUR ---
NURSE NOTES: Received patient in bed, asleep @ this time. Breathing is even and unlabored. No s/s of pain or discomfort @ this time. Bed is in lowest position and locked. Call light within reach. Bed alarm is on.Will continue plan of care.
[2020-01-24 08:00] VITALS: BP 147/75
[2020-01-24] MEDS: Aspirin Baby 81mg ORAL SCH (08:58)
[2020-01-24] MEDS: Docusate 250mg cap ORAL SCH ×2 (08:58→17:41)
[2020-01-24] MEDS: Ascorbic Acid 500mg tab ORAL SCH (08:58)
[2020-01-24] MEDS: Lisinopril 20mg tab ORAL SCH (09:00)
--- NOTE | 2020-01-24 11:31 | General Progress Note ---
Assessment/Plan Problem List: (1) UTI (urinary tract infection) ICD Codes: N39.0 - Urinary tract infection, site not specified SNOMED: 44300407 (2) Dehydration ICD Codes: E86.0 - Dehydration SNOMED: 91624718 (3) Fever ICD Codes: R50.9 - Fever, unspecified SNOMED: 104555699 (4) CAD (coronary artery disease) ICD Codes: I25.10 - Atherosclerotic heart disease of [place] coronary artery without angina pectoris SNOMED: 17946877 (5) Fever of unknown origin ICD Codes: R50.9 - Fever, unspecified SNOMED: 5457311 (6) COVID-19 ICD Codes: U07.1 - COVID-19 SNOMED: 786336968 (7) Uncontrolled diabetes mellitus ICD Codes: E11.9 - Type 2 diabetes mellitus without complications SNOMED: 528115190 (8) Pneumonia ICD Codes: J18.9 - Pneumonia, unspecified organism SNOMED: 322227371 (9) Sepsis ICD Codes: A41.9 - Sepsis, unspecified organism SNOMED: 34075290 Status: stable Assessment/Plan: Continue antibiotics per ID recommendations. Supplemental oxygen to keep sats greater than 92%. Monitor lytes- replace as needed Aspiration precautions. monitor bp and titrate as needed. dvt and stress ulcer prophylaxis. repeat covid 19 pcr Subjective ROS Limited/Unobtainable: No Constitutional: Reports: malaise, weakness HEENT: Reports: no symptoms Cardiovascular: Reports: no symptoms Respiratory: Reports: shortness of breath Gastrointestinal/Abdominal: Reports: no symptoms Genitourinary: Reports: no symptoms Neurologic/Psychiatric: Reports: no symptoms Endocrine: Reports: no symptoms Hematologic/Lymphatic: Reports: no symptoms Allergies: Coded Allergies: No Known Allergies (Unverified , 08/16/14) All Systems: reviewed and negative except above Subjective No overnight events. on med surg. Currently resting. O2 saturation remained stable on 2 L nasal cannula. Completed hydroxychloroquine. eating well. no fevers. covid 19 pcr neg x 1. 2nd test pending Objective Last 24 Hour Vital Signs Date Time Temp Pulse Resp B/P (MAP) Pulse Ox O2 Delivery O2 Flow Rate FiO2 01/24/20 09:00 Nasal Cannula 2.0 01/24/20 09:00 147/75 01/24/20 09:00 57 147/75 01/24/20 08:59 57 147/75 01/24/20 08:00 97.0 57 17 147/75 (99) 100 01/24/20 04:00 97.7 62 19 149/67 (94) 100 01/24/20 00:00 97.3 63 19 108/67 (81) 100 01/23/20 21:47 97.3 66 18 150/86 (107) 100 01/23/20 21:44 Nasal Cannula 2.0 01/23/20 21:12 74 150/74 01/23/20 21:08 98 Nasal Cannula 2.0 28 01/23/20 20:00 97.0 66 18 148/74 (98) 98 01/23/20 16:00 98.4 59 18 154/75 (101) 100 01/23/20 12:00 98.0 59 18 141/75 (97) 100 Intake and Output 01/23/20 01/24/20 19:00 07:00 Intake Total 1080 ml Balance 1080 ml Intake Oral 1080 ml # Voids 2 Height (Feet): 5 Height (Inches): 7.00 Weight (Pounds): 146 Objective General Appearance: WD/WN, alert Neck: supple Cardiovascular: normal rate, regular rhythm Respiratory/Chest: chest wall non-tender, lungs clear, normal breath sounds Abdomen: normal bowel sounds, non tender, soft, no organomegaly Edema: no edema noted Arm (L), no edema noted Arm (R), no edema noted Leg (L), no edema noted Leg (R), no edema noted Pedal (L), no edema noted Pedal (R), no edema noted Generalized Eliud Lizama MD Jan 24, 2020 11:31
--- NOTE | 2020-01-24 11:39 | Infectious Diseases Prog Note ---
Assessment/Plan Assessment/Plan antibiotics none A 1. Covid 19 pneumonia s.p hydroxychloroquine rx test negative 01.18.20 2. coag neg staph in blood likely contaminated 3. diabetes mellitus 4. hypertension 5. CVA 6. leucocytosis resolved P 1. observe off antibiotics 2. continue isolation Subjective ROS Limited/Unobtainable: Yes Allergies: Coded Allergies: No Known Allergies (Unverified , 08/16/14) Objective Vital Signs Last 24 Hour Vital Signs Date Time Temp Pulse Resp B/P (MAP) Pulse Ox O2 Delivery O2 Flow Rate FiO2 01/24/20 09:00 Nasal Cannula 2.0 01/24/20 09:00 147/75 01/24/20 09:00 57 147/75 01/24/20 08:59 57 147/75 01/24/20 08:00 97.0 57 17 147/75 (99) 100 01/24/20 04:00 97.7 62 19 149/67 (94) 100 01/24/20 00:00 97.3 63 19 108/67 (81) 100 01/23/20 21:47 97.3 66 18 150/86 (107) 100 01/23/20 21:44 Nasal Cannula 2.0 01/23/20 21:12 74 150/74 01/23/20 21:08 98 Nasal Cannula 2.0 28 01/23/20 20:00 97.0 66 18 148/74 (98) 98 01/23/20 16:00 98.4 59 18 154/75 (101) 100 01/23/20 12:00 98.0 59 18 141/75 (97) 100 Height (Feet): 5 Height (Inches): 7.00 Weight (Pounds): 146 Current Medications Medications (Trade) Dose Ordered Sig/Wayne Route PRN Reason Start Time Stop Time Status Last Admin Dose Admin Acetaminophen (Tylenol) 650 mg Q4H PRN ORAL Mild Pain (Pain Scale 1-3) 01/19/20 00:45 02/11/20 20:44 Amlodipine Besylate (Norvasc) 10 mg DAILY ORAL 01/19/20 09:00 02/15/20 08:59 01/24/20 08:59 Ascorbic Acid (Vitamin C) 250 mg DAILY ORAL 01/19/20 09:00 02/17/20 08:59 01/24/20 08:58 Aspirin (ASA) 81 mg DAILY ORAL 01/19/20 09:00 02/27/20 08:59 01/24/20 08:58 Bisacodyl (Dulcolax) 10 mg DAILYPRN PRN RECTAL Constipation 01/23/20 16:00 04/22/20 15:59 Clonidine HCl (Catapres Tab) 0.1 mg Q4H PRN ORAL For High Blood Pressure 01/19/20 01:30 04/13/20 13:29 01/21/20 21:45 Docusate Sodium (Colace) 250 mg BID ORAL 01/23/20 18:00 02/22/20 17:59 01/24/20 08:58 Labetalol HCl (Normodyne) 200 mg Q12HR ORAL 01/19/20 09:00 02/16/20 08:59 01/23/20 21:12 Latanoprost (Xalatan) 1 drop BEDTIME BOTH EYES 01/19/20 21:00 02/12/20 00:59 01/23/20 21:11 Lisinopril (PriniviL) 20 mg DAILY ORAL 01/24/20 09:00 02/23/20 08:59 Ondansetron HCl (Zofran) 4 mg Q4H PRN IVP Nausea & Vomiting 01/18/20 23:43 02/17/20 23:42 Pravastatin Sodium (Pravachol) 20 mg BEDTIME ORAL 01/21/20 21:00 02/20/20 20:59 01/23/20 21:12 Radames Morales MD Jan 24, 2020 11:39
[2020-01-24 12:00] VITALS: BP 148/74
--- NOTE | 2020-01-24 14:46 | Pulmonology Progress Note ---
Assessment/Plan Assessment/Plan ASSESSMENT: COVID-19 pneumonia, respiratory failure, acute CO hypertension, diabetes, hypothyroidism, hypernatremia protein calorie malnutrition bacteremia PLAN respiratory noted and no worsening in status monitor oxygen saturations >92% ID review and recommendations reviewed monitor for worsening congestion and optimize aspiration precautions as is review and monitor for fevers or deterioration impression, plan, and exam edited and reviewed in detail care discussed with RN. Subjective ROS Limited/Unobtainable: Yes Constitutional: Denies: fever Allergies: Coded Allergies: No Known Allergies (Unverified , 08/16/14) All Systems: reviewed and negative except above Subjective overnight events reviewed no distress on oxygen low flow and weekend events noted MD care reviewed Objective Last 24 Hour Vital Signs Date Time Temp Pulse Resp B/P (MAP) Pulse Ox O2 Delivery O2 Flow Rate FiO2 01/24/20 12:00 97.0 54 19 148/74 (98) 100 01/24/20 09:00 Nasal Cannula 2.0 01/24/20 09:00 147/75 01/24/20 09:00 57 147/75 01/24/20 08:59 57 147/75 01/24/20 08:00 97.0 57 17 147/75 (99) 100 01/24/20 04:00 97.7 62 19 149/67 (94) 100 01/24/20 00:00 97.3 63 19 108/67 (81) 100 01/23/20 21:47 97.3 66 18 150/86 (107) 100 01/23/20 21:44 Nasal Cannula 2.0 01/23/20 21:12 74 150/74 01/23/20 21:08 98 Nasal Cannula 2.0 28 01/23/20 20:00 97.0 66 18 148/74 (98) 98 01/23/20 16:00 98.4 59 18 154/75 (101) 100 Intake and Output 01/23/20 01/24/20 19:00 07:00 Intake Total 1080 ml Balance 1080 ml Intake Oral 1080 ml # Voids 2 Objective WDWN NAD reduced breath sounds bilaterally without rhonchi or wheeze [id number] without MRG NABS nontender no HSM no CCE confused and weak General Appearance: no acute distress HEENT: mucous membranes moist Abdomen: soft, non tender Extremities: no edema Neurologic/Psychiatric: alert, responsive Current Medications Medications (Trade) Dose Ordered Sig/Wayne Route PRN Reason Start Time Stop Time Status Last Admin Dose Admin Acetaminophen (Tylenol) 650 mg Q4H PRN ORAL Mild Pain (Pain Scale 1-3) 01/19/20 00:45 02/11/20 20:44 Amlodipine Besylate (Norvasc) 10 mg DAILY ORAL 01/19/20 09:00 02/15/20 08:59 01/24/20 08:59 Ascorbic Acid (Vitamin C) 250 mg DAILY ORAL 01/19/20 09:00 02/17/20 08:59 01/24/20 08:58 Aspirin (ASA) 81 mg DAILY ORAL 01/19/20 09:00 02/27/20 08:59 01/24/20 08:58 Bisacodyl (Dulcolax) 10 mg DAILYPRN PRN RECTAL Constipation 01/23/20 16:00 04/22/20 15:59 Clonidine HCl (Catapres Tab) 0.1 mg Q4H PRN ORAL For High Blood Pressure 01/19/20 01:30 04/13/20 13:29 01/21/20 21:45 Docusate Sodium (Colace) 250 mg BID ORAL 01/23/20 18:00 02/22/20 17:59 01/24/20 08:58 Labetalol HCl (Normodyne) 200 mg Q12HR ORAL 01/19/20 09:00 02/16/20 08:59 01/23/20 21:12 Latanoprost (Xalatan) 1 drop BEDTIME BOTH EYES 01/19/20 21:00 02/12/20 00:59 01/23/20 21:11 Lisinopril (PriniviL) 20 mg DAILY ORAL 01/24/20 09:00 02/23/20 08:59 Ondansetron HCl (Zofran) 4 mg Q4H PRN IVP Nausea & Vomiting 01/18/20 23:43 02/17/20 23:42 Pravastatin Sodium (Pravachol) 20 mg BEDTIME ORAL 01/21/20 21:00 02/20/20 20:59 01/23/20 21:12 Gustavo Jorgensen MD Jan 24, 2020 14:46
--- NOTE | 2020-01-24 15:00 | NUR ---
NURSE NOTES: Late entry for 01/24/20. RN was told by inspector tool nurse that covid-19 swab was done for this patient when RN asked night nurse.RN followed with lab f Covid-19 swab was received. Per Mayelin in lab, no specimen under patient's name. RN will follow up.
[2020-01-24 16:00] VITALS: BP 132/73
--- NOTE | 2020-01-24 16:20 | NUR ---
NURSE NOTES: Collected specimen for Covid-19 properly and sent it to lab.
--- NOTE | 2020-01-24 18:00 | NUR ---
NURSE NOTES: Proper incontinent and skin care done,no new skin break.
--- NOTE | 2020-01-24 19:50 | NUR ---
HAND-OFF: Report given to Yenny and endorsed plan of care.
--- NOTE | 2020-01-24 19:55 | NUR ---
NURSE NOTES: Patient is resting in bed. On nasal cannula with no signs of distress or SOB. IV intact and patent. Condom catheter in place. Bed locked and in lowest position. Bed alarm on. HOB elevated. Will continue to monitor the patient.
[2020-01-24 20:00] VITALS: BP 134/72
[2020-01-24] MEDS: Latanoprost 0.005% Opth 2.5ml Soln BOTH EYES SCH (20:57)
--- NOTE | 2020-01-24 22:23 | Surgery Progress Note ---
Surgery Progress Note Subjective Additional Comments no acute events stable Objective Last 24 Hour Vital Signs Date Time Temp Pulse Resp B/P (MAP) Pulse Ox O2 Delivery O2 Flow Rate FiO2 01/24/20 21:00 Nasal Cannula 2.0 01/24/20 20:57 71 134/72 01/24/20 20:00 97.7 71 18 134/72 (92) 100 01/24/20 16:00 97.0 63 19 132/73 (92) 100 01/24/20 12:00 97.0 54 19 148/74 (98) 100 01/24/20 09:00 Nasal Cannula 2.0 01/24/20 09:00 147/75 01/24/20 09:00 57 147/75 01/24/20 08:59 57 147/75 01/24/20 08:00 97.0 57 17 147/75 (99) 100 01/24/20 04:00 97.7 62 19 149/67 (94) 100 01/24/20 00:00 97.3 63 19 108/67 (81) 100 I&O Intake and Output 01/23/20 01/24/20 19:00 07:00 Intake Total 1080 ml Balance 1080 ml Intake Oral 1080 ml # Voids 2 Dressing: other Wound: other Drains: other Cardiovascular: RSR Respiratory: decreased breath sounds Abdomen: soft, non-tender, present bowel sounds Extremities: no edema, no tenderness Plan Problems: (1) COVID-19 Assessment & Plan: positive all precautions taken (2) UTI (urinary tract infection) (3) Dehydration (4) Fever (5) Hematuria (6) CAD (coronary artery disease) (7) Fever of unknown origin (8) Proteinuria (9) Malnutrition of moderate degree Assessment & Plan: DAILY ESTIMATED NEEDS: Needs based on cardiac, wound, DM/ 65kg 25-30 kcals/kg 1352-4884 total kcals 1.25-1.5 g protein/kg 81-98 g total protein 25-30 mL/kg 7127-6209 total fluid mLs NUTRITION DIAGNOSIS: * Swallowing difficulty R/T dysphagia, h/o CVA as evidenced by pt on liquify pureed, NTL per SEED LABORATORY TECHNICIAN rec. CURRENT DIET:Cardiac liq puree w/ NTL PO DIET RECOMMENDATIONS: Low na diet/ texture per SEED LABORATORY TECHNICIAN + continue Glucerna BID w/ meals ADDITIONAL RECOMMENDATIONS: * Calibrated bedscale wt for accurate CBW (143# per SNF) * Add GLUCERNA BID w/ meals w/ variable po * Wound care: as tolerated SATYA BID + Vit C 250mg daily * Monitor BGs closely, rec NISS for coverage * Consider appetite stimulant * Consult RD if temp non oral feeds are part of POC (10) Sepsis (11) Sepsis Assessment & Plan: Leukocytosis, febrile covid positive , on support evaluated and noted to have presented on admission with an open Sacral DTPI Base of wound is purple with small opening at sacrococcygeal area. Hyperpigmentation noted to cleft of buttocks /perianal area. considered as possible infection. unlikely uti, cxr okay on abx as per ID Apply Moisture Barrier Paste to Sacrum. Cover with Optifoam drsg. Change every 3 days and prn. Apply Moisture Barrier Paste to cleft of buttocks and scrotum with each incontinence care. Apply Cavilon Skin Barrier to both heels. Cover each heel with Optifoam drsg. Change every 7 days and prn. Reposition at least every 2hours or as tolerated. Off-load heels with pillow. APM/ERASMO Mattress overlay. cont current care stable (12) Pneumonia (13) Uncontrolled diabetes mellitus Kristopher Ayala Jan 24, 2020 22:23
[2020-01-25] VITALS: BP 135/75
--- NOTE | 2020-01-25 02:44 | Progress Note ---
DATE: 01/24/2020 CARDIOLOGY PROGRESS NOTE SUBJECTIVE: No distress. No shortness of breath. Saturating adequately on 2 liters nasal cannula. PHYSICAL EXAMINATION: VITAL SIGNS: Reviewed. LUNGS: Bilateral breath sounds. CARDIAC: Regular rhythm and rate. Normal S1, S2. A 1/6 systolic murmur at the apex. ABDOMEN: Soft, nontender. EXTREMITIES: No edema. IMPRESSION: 1. Beta-janis associated bradycardia, asymptomatic. 2. Ischemic cardiomyopathy with stable angina. 3. Hypertensive heart disease with slightly elevated blood pressure trend. 4. COVID-19 pneumonia, recovering. 5. Hypoxia, improved. PLAN: Taper off oxygen. Optimize blood pressure control. Maintain anti-platelet and anti-lipid drugs. Discharge planning with COVID swabs are negative. Vishal Drummond M.D. DR: KATEY JOB#: [id number] CC:
[2020-01-25 04:00] VITALS: BP 159/77
--- NOTE | 2020-01-25 07:24 | NUR ---
HAND-OFF: Report given to KAI Foreman.
--- NOTE | 2020-01-25 07:48 | NUR ---
NURSE NOTES: Patient awake, alert x2, Danish speaking; on room air, no sing of distress and shortness of breath; no sing of chest pain; IV Right For-Arm flushes well; Condom cath in place, collects yellow urine; dressing dry and intact; side rails up x2, breaks engaged, bed at lowest position; call light within reach; will keep monitoring.
[2020-01-25 08:00] VITALS: BP 178/78
[2020-01-25] MEDS: Aspirin Baby 81mg ORAL SCH (09:23)
[2020-01-25] MEDS: Lisinopril 20mg tab ORAL SCH (09:23)
[2020-01-25] MEDS: Docusate 250mg cap ORAL SCH ×2 (09:24→17:38)
[2020-01-25] MEDS: Ascorbic Acid 500mg tab ORAL SCH (09:25)
--- NOTE | 2020-01-25 09:59 | NUR ---
DISCHARGE PLANNING PATIENT HAS BEEN REFERRED BACK TO [facility] P: [phone] F: [phone] Addendum: 01/25/20 at 1230 by LAUREN GOMEZ LVN [facility] S/W [facility]. STATES THEY ARE UNABLE TO READMIT ANY PATIENTS AT THIS TIME BY ORDER FROM [facility]. [facility] WILL INFORM CM WHEN ABLE TO ACCEPT PATIENT FOR RETURN.
--- NOTE | 2020-01-25 10:09 | NUR ---
RD ASSESSMENT & RECOMMENDATIONS SEE CARE ACTIVITY FOR COMPLETE ASSESSMENT DAILY ESTIMATED NEEDS: Needs based on cardiac, wound, DM/ 65kg 25-30 kcals/kg 4655-9512 total kcals 1.25-1.5 g protein/kg 81-98 g total protein 25-30 mL/kg 1219-8768 total fluid mLs NUTRITION DIAGNOSIS: * Swallowing difficulty R/T dysphagia, h/o CVA as evidenced by pt on pureed moist texture w/ thin liquids per REHAB SPEC rec * Altered nutrition related lab values R/T h/o DM as evidenced by elev BGs (221 164 143 184), U glu 1+ upon adm. CURRENT DIET:CARDIAC, PUREED MOIST+ ENSURE TID PO DIET RECOMMENDATIONS: LOW NA+ CCHO MED diet/ texture per REHAB SPEC ADDITIONAL RECOMMENDATIONS: * Calibrated bedscale wt for accurate CBW (143# per SNF) * Rec NISS for BG control- h/o DM * Wound care: add MVI, continue Vit C 250mg daily as tolerated SATYA BID * Monitor for continued improved PO intake -> DC Ensure, rec Glucerna instead (BID for now) .
--- NOTE | 2020-01-25 10:10 | Pulmonology Progress Note ---
Assessment/Plan Assessment/Plan ASSESSMENT: COVID-19 pneumonia, respiratory failure, acute CT hypertension, diabetes, hypothyroidism, hypernatremia protein calorie malnutrition bacteremia PLAN respiratory noted and overnight events reviewed monitor oxygen saturations >92% ID review and recommendations reviewed monitor for worsening congestion and optimize aspiration precautions review and monitor for fevers or deterioration position change impression, plan, and exam edited and reviewed in detail care discussed with RN. Subjective ROS Limited/Unobtainable: Yes Constitutional: Denies: fever Allergies: Coded Allergies: No Known Allergies (Unverified , 08/16/14) All Systems: reviewed and negative except above Subjective overnight events reviewed no distress on oxygen low flow and appears stable MD care reviewed Objective Last 24 Hour Vital Signs Date Time Temp Pulse Resp B/P (MAP) Pulse Ox O2 Delivery O2 Flow Rate FiO2 01/25/20 09:26 79 178/78 01/25/20 09:23 178/78 01/25/20 09:23 79 178/78 01/25/20 04:00 97.5 68 20 159/77 (104) 100 01/25/20 00:00 97.0 61 18 135/75 (95) 100 01/24/20 21:00 Nasal Cannula 2.0 01/24/20 20:57 71 134/72 01/24/20 20:00 97.7 71 18 134/72 (92) 100 01/24/20 16:00 97.0 63 19 132/73 (92) 100 01/24/20 12:00 97.0 54 19 148/74 (98) 100 Intake and Output 01/24/20 01/25/20 19:00 07:00 Intake Total 840 ml 100 ml Balance 840 ml 100 ml Intake Oral 840 ml 100 ml # Voids 2 2 Objective WDWN NAD reduced breath sounds bilaterally without rhonchi or wheeze [id number] without MRG NABS nontender no HSM no CCE confused and weak General Appearance: no acute distress HEENT: mucous membranes moist Abdomen: soft, non tender Extremities: no edema Neurologic/Psychiatric: alert, responsive Current Medications Medications (Trade) Dose Ordered Sig/Wayne Route PRN Reason Start Time Stop Time Status Last Admin Dose Admin Acetaminophen (Tylenol) 650 mg Q4H PRN ORAL Mild Pain (Pain Scale 1-3) 01/19/20 00:45 02/11/20 20:44 01/25/20 09:25 Amlodipine Besylate (Norvasc) 10 mg DAILY ORAL 01/19/20 09:00 02/15/20 08:59 01/25/20 09:23 Ascorbic Acid (Vitamin C) 250 mg DAILY ORAL 01/19/20 09:00 02/17/20 08:59 01/25/20 09:25 Aspirin (ASA) 81 mg DAILY ORAL 01/19/20 09:00 02/27/20 08:59 01/25/20 09:23 Bisacodyl (Dulcolax) 10 mg DAILYPRN PRN RECTAL Constipation 01/23/20 16:00 04/22/20 15:59 Clonidine HCl (Catapres Tab) 0.1 mg Q4H PRN ORAL For High Blood Pressure 01/19/20 01:30 04/13/20 13:29 01/21/20 21:45 Docusate Sodium (Colace) 250 mg BID ORAL 01/23/20 18:00 02/22/20 17:59 01/25/20 09:24 Labetalol HCl (Normodyne) 200 mg Q12HR ORAL 01/19/20 09:00 02/16/20 08:59 01/25/20 09:26 Latanoprost (Xalatan) 1 drop BEDTIME BOTH EYES 01/19/20 21:00 02/12/20 00:59 01/24/20 20:57 Lisinopril (PriniviL) 20 mg DAILY ORAL 01/24/20 09:00 02/23/20 08:59 01/25/20 09:23 Ondansetron HCl (Zofran) 4 mg Q4H PRN IVP Nausea & Vomiting 01/18/20 23:43 02/17/20 23:42 Pravastatin Sodium (Pravachol) 20 mg BEDTIME ORAL 01/21/20 21:00 02/20/20 20:59 01/24/20 20:58 Gustavo Jorgensen MD Jan 25, 2020 10:10
--- NOTE | 2020-01-25 10:40 | Infectious Diseases Prog Note ---
Assessment/Plan Assessment/Plan antibiotics none A 1. Covid 19 pneumonia s.p hydroxychloroquine rx test negative 4 2. coag neg staph in blood likely contaminated 3. diabetes mellitus 4. hypertension 5. CVA 6. leucocytosis resolved P 1. observe off antibiotics 2. continue isolation Subjective ROS Limited/Unobtainable: Yes Allergies: Coded Allergies: No Known Allergies (Unverified , 08/16/14) Objective Vital Signs Last 24 Hour Vital Signs Date Time Temp Pulse Resp B/P (MAP) Pulse Ox O2 Delivery O2 Flow Rate FiO2 01/25/20 09:55 99.2 01/25/20 09:26 79 178/78 01/25/20 09:23 178/78 01/25/20 09:23 79 178/78 01/25/20 08:00 98.0 62 20 178/78 (111) 98 01/25/20 04:00 97.5 68 20 159/77 (104) 100 01/25/20 00:00 97.0 61 18 135/75 (95) 100 01/24/20 21:00 Nasal Cannula 2.0 01/24/20 20:57 71 134/72 01/24/20 20:00 97.7 71 18 134/72 (92) 100 01/24/20 16:00 97.0 63 19 132/73 (92) 100 01/24/20 12:00 97.0 54 19 148/74 (98) 100 Height (Feet): 5 Height (Inches): 7.00 Weight (Pounds): 144 Current Medications Medications (Trade) Dose Ordered Sig/Wayne Route PRN Reason Start Time Stop Time Status Last Admin Dose Admin Acetaminophen (Tylenol) 650 mg Q4H PRN ORAL Mild Pain (Pain Scale 1-3) 01/19/20 00:45 02/11/20 20:44 01/25/20 09:25 Amlodipine Besylate (Norvasc) 10 mg DAILY ORAL 01/19/20 09:00 02/15/20 08:59 01/25/20 09:23 Ascorbic Acid (Vitamin C) 250 mg DAILY ORAL 01/19/20 09:00 02/17/20 08:59 01/25/20 09:25 Aspirin (ASA) 81 mg DAILY ORAL 01/19/20 09:00 02/27/20 08:59 01/25/20 09:23 Bisacodyl (Dulcolax) 10 mg DAILYPRN PRN RECTAL Constipation 01/23/20 16:00 04/22/20 15:59 Clonidine HCl (Catapres Tab) 0.1 mg Q4H PRN ORAL For High Blood Pressure 01/19/20 01:30 04/13/20 13:29 01/21/20 21:45 Docusate Sodium (Colace) 250 mg BID ORAL 01/23/20 18:00 02/22/20 17:59 01/25/20 09:24 Labetalol HCl (Normodyne) 200 mg Q12HR ORAL 01/19/20 09:00 02/16/20 08:59 01/25/20 09:26 Latanoprost (Xalatan) 1 drop BEDTIME BOTH EYES 01/19/20 21:00 02/12/20 00:59 01/24/20 20:57 Lisinopril (PriniviL) 20 mg DAILY ORAL 01/24/20 09:00 02/23/20 08:59 01/25/20 09:23 Ondansetron HCl (Zofran) 4 mg Q4H PRN IVP Nausea & Vomiting 01/18/20 23:43 02/17/20 23:42 Pravastatin Sodium (Pravachol) 20 mg BEDTIME ORAL 01/21/20 21:00 02/20/20 20:59 01/24/20 20:58 Radames Morales MD Jan 25, 2020 10:40
[2020-01-25 12:00] VITALS: BP 133/61
--- NOTE | 2020-01-25 12:21 | Surgery Progress Note ---
Surgery Progress Note Subjective Additional Comments no acute events leukocytosis afebrile comfortable appearing Objective Last 24 Hour Vital Signs Date Time Temp Pulse Resp B/P (MAP) Pulse Ox O2 Delivery O2 Flow Rate FiO2 01/25/20 09:55 99.2 01/25/20 09:26 79 178/78 01/25/20 09:23 178/78 01/25/20 09:23 79 178/78 01/25/20 09:00 Nasal Cannula 2.0 01/25/20 08:00 98.0 62 20 178/78 (111) 98 01/25/20 04:00 97.5 68 20 159/77 (104) 100 01/25/20 00:00 97.0 61 18 135/75 (95) 100 01/24/20 21:00 Nasal Cannula 2.0 01/24/20 20:57 71 134/72 01/24/20 20:00 97.7 71 18 134/72 (92) 100 01/24/20 16:00 97.0 63 19 132/73 (92) 100 I&O Intake and Output 01/24/20 01/25/20 19:00 07:00 Intake Total 840 ml 100 ml Balance 840 ml 100 ml Intake Oral 840 ml 100 ml # Voids 2 2 Dressing: other Wound: other Drains: other Cardiovascular: RSR, other Respiratory: decreased breath sounds, other Abdomen: non-tender, present bowel sounds, non-distended Extremities: edema, no tenderness, no cyanosis Plan Problems: (1) COVID-19 Assessment & Plan: positive all precautions taken (2) UTI (urinary tract infection) (3) Dehydration (4) Fever (5) Hematuria (6) CAD (coronary artery disease) (7) Fever of unknown origin (8) Proteinuria (9) Malnutrition of moderate degree Assessment & Plan: DAILY ESTIMATED NEEDS: Needs based on cardiac, wound, DM/ 65kg 25-30 kcals/kg 8780-5435 total kcals 1.25-1.5 g protein/kg 81-98 g total protein 25-30 mL/kg 9642-1724 total fluid mLs NUTRITION DIAGNOSIS: * Swallowing difficulty R/T dysphagia, h/o CVA as evidenced by pt on liquify pureed, NTL per EXTRUSION DIE REPAIR MANAGER rec. CURRENT DIET:Cardiac liq puree w/ NTL PO DIET RECOMMENDATIONS: Low na diet/ texture per EXTRUSION DIE REPAIR MANAGER + continue Glucerna BID w/ meals ADDITIONAL RECOMMENDATIONS: * Calibrated bedscale wt for accurate CBW (143# per SNF) * Add GLUCERNA BID w/ meals w/ variable po * Wound care: as tolerated SATYA BID + Vit C 250mg daily * Monitor BGs closely, rec NISS for coverage * Consider appetite stimulant * Consult RD if temp non oral feeds are part of POC (10) Sepsis (11) Sepsis Assessment & Plan: Leukocytosis, febrile covid positive , on support evaluated and noted to have presented on admission with an open Sacral DTPI Base of wound is purple with small opening at sacrococcygeal area. Hyperpigmentation noted to cleft of buttocks /perianal area. considered as possible infection. unlikely uti, cxr okay on abx as per ID Apply Moisture Barrier Paste to Sacrum. Cover with Optifoam drsg. Change every 3 days and prn. Apply Moisture Barrier Paste to cleft of buttocks and scrotum with each incontinence care. Apply Cavilon Skin Barrier to both heels. Cover each heel with Optifoam drsg. Change every 7 days and prn. Reposition at least every 2hours or as tolerated. Off-load heels with pillow. APM/ERASMO Mattress overlay. cont current care stable (12) Pneumonia (13) Uncontrolled diabetes mellitus Kristopher Ayala Jan 25, 2020 12:21
--- NOTE | 2020-01-25 15:12 | General Progress Note ---
Assessment/Plan Problem List: (1) UTI (urinary tract infection) ICD Codes: N39.0 - Urinary tract infection, site not specified SNOMED: 76029535 (2) Dehydration ICD Codes: E86.0 - Dehydration SNOMED: 69590720 (3) Fever ICD Codes: R50.9 - Fever, unspecified SNOMED: 809417670 (4) CAD (coronary artery disease) ICD Codes: I25.10 - Atherosclerotic heart disease of [place] coronary artery without angina pectoris SNOMED: 20897415 (5) Fever of unknown origin ICD Codes: R50.9 - Fever, unspecified SNOMED: 7113991 (6) COVID-19 ICD Codes: U07.1 - COVID-19 SNOMED: 447953387 (7) Uncontrolled diabetes mellitus ICD Codes: E11.9 - Type 2 diabetes mellitus without complications SNOMED: 898131006 (8) Pneumonia ICD Codes: J18.9 - Pneumonia, unspecified organism SNOMED: 153976872 (9) Sepsis ICD Codes: A41.9 - Sepsis, unspecified organism SNOMED: 75079545 Status: stable Assessment/Plan: Continue antibiotics per ID recommendations. Supplemental oxygen to keep sats greater than 92%. Monitor lytes- replace as needed Aspiration precautions. monitor bp and titrate as needed. dvt and stress ulcer prophylaxis. repeat covid 19 pcr Subjective ROS Limited/Unobtainable: No Constitutional: Reports: malaise, weakness HEENT: Reports: no symptoms Cardiovascular: Reports: no symptoms Respiratory: Reports: cough, shortness of breath Gastrointestinal/Abdominal: Reports: no symptoms Genitourinary: Reports: no symptoms Neurologic/Psychiatric: Reports: no symptoms Endocrine: Reports: no symptoms Hematologic/Lymphatic: Reports: no symptoms Allergies: Coded Allergies: No Known Allergies (Unverified , 08/16/14) All Systems: reviewed and negative except above Subjective No overnight events. on med surg. Currently resting. O2 saturation remained stable on 2 L nasal cannula. labile bp. eating well. no fevers. covid 19 pcr neg x 1. 2nd test pending Objective Last 24 Hour Vital Signs Date Time Temp Pulse Resp B/P (MAP) Pulse Ox O2 Delivery O2 Flow Rate FiO2 01/25/20 12:00 97.6 60 19 133/61 (85) 97 01/25/20 09:55 99.2 01/25/20 09:26 79 178/78 01/25/20 09:23 178/78 01/25/20 09:23 79 178/78 01/25/20 09:00 Nasal Cannula 2.0 01/25/20 08:00 98.0 62 20 178/78 (111) 98 01/25/20 04:00 97.5 68 20 159/77 (104) 100 01/25/20 00:00 97.0 61 18 135/75 (95) 100 01/24/20 21:00 Nasal Cannula 2.0 01/24/20 20:57 71 134/72 01/24/20 20:00 97.7 71 18 134/72 (92) 100 01/24/20 16:00 97.0 63 19 132/73 (92) 100 Intake and Output 01/24/20 01/25/20 19:00 07:00 Intake Total 840 ml 100 ml Balance 840 ml 100 ml Intake Oral 840 ml 100 ml # Voids 2 2 Height (Feet): 5 Height (Inches): 7.00 Weight (Pounds): 144 Objective General Appearance: WD/WN, alert Neck: supple Cardiovascular: normal rate, regular rhythm Respiratory/Chest: chest wall non-tender, lungs clear, normal breath sounds Abdomen: normal bowel sounds, non tender, soft, no organomegaly Edema: no edema noted Arm (L), no edema noted Arm (R), no edema noted Leg (L), no edema noted Leg (R), no edema noted Pedal (L), no edema noted Pedal (R), no edema noted Generalized Eliud Lizama MD Jan 25, 2020 15:12
--- NOTE | 2020-01-25 15:20 | NUR ---
CASE MANAGEMENT:REVIEW SI;COVID-19 PNA (01/12/20 DETECTED, RE-TEST 01/18/20 NOT DETECTED) SEPSIS. PNEUMONIA. UTI. BACTEREMIA. RESPIRATORY FAILURE. 99.2 79 20 178/78 97% 2L NC NO LABS AVAILABLE IS;LISINOPRIL PO QD NORVASC PO QD LABETALOL [P Q12 JRS VITAMIN C PO QD MED SURG STATUS DCP;[facility];REPEAT COVID-19 (2 NEG RESULTS REQUIRED FOR READMISSION) CONTINUE ISOLATION
[2020-01-25 16:00] VITALS: BP 136/62
--- NOTE | 2020-01-25 19:16 | NUR ---
HAND-OFF: Report given to KAI Ruelas.
--- NOTE | 2020-01-25 19:20 | NUR ---
NURSE NOTES: Pt. received from KAI Foreman. Pt. AAOx1, on room air, breathing is even and unlabored, no indications of pain. IV right FA 20g intact and patent, saline locked. Head of bed is elevated, bed is low and locked, side rails x3 up, bed alarm active, and call light is in reach. Will continue with plan of care.
[2020-01-25 20:00] VITALS: BP 140/70
[2020-01-25] MEDS: Latanoprost 0.005% Opth 2.5ml Soln BOTH EYES SCH (20:11)
[2020-01-26] VITALS: BP 126/64
[2020-01-26 04:00] VITALS: BP 145/66
--- NOTE | 2020-01-26 04:00 | Progress Note ---
DATE: 01/25/2020 CARDIOLOGY PROGRESS NOTE SUBJECTIVE: The patient is comfortable. No respiratory distress. Low-flow oxygen. COVID-19 swab negative x1. Blood pressure is labile. No chest pain. PHYSICAL EXAMINATION: LUNGS: Few rhonchi. CARDIAC: Regular rhythm and rate. Normal S1, S2. ABDOMEN: Soft. EXTREMITIES: No edema. IMPRESSION: 1. Ischemic heart disease. 2. COVID-19 pneumonia, resolving. 3. Hypoxia, recovered. 4. Stable angina. 5. Labile hypertension. 6. No clinical signs of acute congestive heart failure at this time. PLAN: Isolation. Pending second swab for COVID-19. Advance antihypertensives. Discharge planning once isolation can be discontinued. Taper off nasal oxygen. Vishal Drummond M.D. DR: KATEY JOB#: [id number] CC:
--- NOTE | 2020-01-26 07:17 | NUR ---
NURSE NOTES: Pt. satting 95-100% on RA, pt. no longer on NC at this time. No indication of respiratory distress.
--- NOTE | 2020-01-26 07:27 | NUR ---
NURSE NOTES: Dr. Morales ordered to d/c isolation per covid negative x2 (01/17) and (01/23). Endorsed to next shift.
--- NOTE | 2020-01-26 07:43 | NUR ---
HAND-OFF: Report given to KAI Quesada. Pt. now covid negative x2, orders received from Dr. Morales to discontinue droplet isolaton, endorsed to day shift nurse.
[2020-01-26 08:00] VITALS: BP 141/73
--- NOTE | 2020-01-26 08:20 | NUR ---
NURSE NOTES: Received report from Florin Ruelas RN. Patient in supine position, awake and alert to name, bed in lowest position, side rails up x 3, call light within reach, condom cather in place, IV in right forearm, television on in background, in no apparent distress.
--- NOTE | 2020-01-26 09:09 | Pulmonology Progress Note ---
Assessment/Plan Assessment/Plan ASSESSMENT: COVID-19 pneumonia, respiratory failure, acute [place] hypertension, diabetes, hypothyroidism, hypernatremia protein calorie malnutrition bacteremia PLAN respiratory noted and overnight events reviewed monitor oxygen saturations >92% rehab consultant care reviewed monitor for worsening congestion and optimize aspiration precautions and elevate head review and monitor for fevers or deterioration position change monitor nutrition impression, plan, and exam edited and reviewed in detail care discussed with RN. Subjective ROS Limited/Unobtainable: Yes Constitutional: Denies: fever Allergies: Coded Allergies: No Known Allergies (Unverified , 08/16/14) All Systems: reviewed and negative except above Subjective overnight events reviewed no distress on oxygen minimal congestion MD care reviewed Objective Last 24 Hour Vital Signs Date Time Temp Pulse Resp B/P (MAP) Pulse Ox O2 Delivery O2 Flow Rate FiO2 01/26/20 07:53 98 Nasal Cannula 2.0 28 01/26/20 04:00 97.0 53 18 145/66 (92) 100 01/26/20 00:00 98.4 64 18 126/64 (84) 100 01/25/20 21:00 Nasal Cannula 1.0 01/25/20 20:11 56 140/70 01/25/20 20:00 96 Nasal Cannula 2.0 28 01/25/20 20:00 98.8 56 19 140/70 (93) 95 01/25/20 16:00 98.0 64 19 136/62 (86) 98 01/25/20 12:00 97.6 60 19 133/61 (85) 97 01/25/20 09:55 99.2 01/25/20 09:26 79 178/78 01/25/20 09:23 178/78 01/25/20 09:23 79 178/78 Intake and Output 01/25/20 01/26/20 19:00 07:00 Intake Total 300 ml 200 ml Balance 300 ml 200 ml Intake Oral 300 ml 200 ml # Voids 3 3 Objective WDWN NAD reduced breath sounds bilaterally without rhonchi or wheeze [id number] without MRG NABS nontender no HSM no CCE confused and weak General Appearance: no acute distress HEENT: mucous membranes moist Abdomen: soft, non tender Extremities: no edema Neurologic/Psychiatric: alert, responsive Microbiology Date/Time Source Procedure Growth Status 01/24/20 16:00 Nasopharynx Coronavirus COVID-19 PCR (JOSE) - Final Complete Current Medications Medications (Trade) Dose Ordered Sig/Wayne Route PRN Reason Start Time Stop Time Status Last Admin Dose Admin Acetaminophen (Tylenol) 650 mg Q4H PRN ORAL Mild Pain (Pain Scale 1-3) 01/19/20 00:45 02/11/20 20:44 01/25/20 09:25 Amlodipine Besylate (Norvasc) 10 mg DAILY ORAL 01/19/20 09:00 02/15/20 08:59 01/25/20 09:23 Ascorbic Acid (Vitamin C) 250 mg DAILY ORAL 01/19/20 09:00 02/17/20 08:59 01/25/20 09:25 Aspirin (ASA) 81 mg DAILY ORAL 01/19/20 09:00 02/27/20 08:59 01/25/20 09:23 Bisacodyl (Dulcolax) 10 mg DAILYPRN PRN RECTAL Constipation 01/23/20 16:00 04/22/20 15:59 Clonidine HCl (Catapres Tab) 0.1 mg Q4H PRN ORAL For High Blood Pressure 01/19/20 01:30 04/13/20 13:29 01/21/20 21:45 Docusate Sodium (Colace) 250 mg BID ORAL 01/23/20 18:00 02/22/20 17:59 01/25/20 17:38 Labetalol HCl (Normodyne) 300 mg Q12HR ORAL 01/26/20 09:00 02/25/20 08:59 Latanoprost (Xalatan) 1 drop BEDTIME BOTH EYES 01/19/20 21:00 02/12/20 00:59 01/25/20 20:11 Lisinopril (PriniviL) 20 mg DAILY ORAL 01/24/20 09:00 02/23/20 08:59 01/25/20 09:23 Ondansetron HCl (Zofran) 4 mg Q4H PRN IVP Nausea & Vomiting 01/18/20 23:43 02/17/20 23:42 Pravastatin Sodium (Pravachol) 20 mg BEDTIME ORAL 01/21/20 21:00 02/20/20 20:59 01/25/20 20:11 Gustavo Jorgensen MD Jan 26, 2020 09:09
[2020-01-26] MEDS: Lisinopril 20mg tab ORAL SCH (10:18)
[2020-01-26] MEDS: Docusate 250mg cap ORAL SCH ×2 (10:19→18:07)
[2020-01-26] MEDS: Aspirin Baby 81mg ORAL SCH (10:19)
[2020-01-26] MEDS: Ascorbic Acid 500mg tab ORAL SCH (10:19)
--- NOTE | 2020-01-26 11:02 | NUR ---
DISCHARGE PLANNING CALL MADE TO [facility] @ [phone]. S/W MYKEL. PER MYKEL, HE WILL FOLLOW UP ON THEIR STATUS WITH [facility] IN RE TO READMISSIONS. OF 01/25/20 FACILITY UNABLE TO RE-ADMIT PER DP. WILL ANTICIPATE CALL BACK. Addendum: 01/26/20 at 1150 by LAUREN GOMEZ LVN LVN FOLLOW UP WITH MYKEL @ [facility]. REQUESTS FOR COVID RESULTS TO BE REFAXED FOR REVIEW. COVID TEST SWABBED ON 01/24/20 HAVE RESULTED TODAY AND FAXED TO [facility] FOR REVIEW. WILL FOLLOW UP. Addendum: 01/26/20 at 1527 by LAUREN GOMEZ LVN LVN ADDITIONAL CLINICALS REQUESTED BY MYKEL AT [facility]. REQUESTED INFO HAS BEEN EMAILED TO [facility]
[2020-01-26] MEDS ORDERED: PRINIVIL20 MG ORAL (11:19)
[2020-01-26] MEDS ORDERED: NORVASC10 MG ORAL (11:19)
[2020-01-26] MEDS ORDERED: NORMODYNE100 MG ORAL (11:19)
[2020-01-26 12:00] VITALS: BP 124/69
--- NOTE | 2020-01-26 14:11 | Infectious Diseases Prog Note ---
Assessment/Plan Assessment/Plan A 1. pneumonia -s.p hydroxychloroquine rx _ Covid19 test: negative X 2 2. coag neg staph in blood likely contaminated 3. diabetes mellitus 4. hypertension 5. CVA 6. 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 observe off antibiotics Subjective ROS Limited/Unobtainable: Yes Allergies: Coded Allergies: No Known Allergies (Unverified , 08/16/14) Objective Vital Signs Last 24 Hour Vital Signs Date Time Temp Pulse Resp B/P (MAP) Pulse Ox O2 Delivery O2 Flow Rate FiO2 01/26/20 12:00 96.8 53 18 124/69 (87) 96 01/26/20 10:19 56 141/73 01/26/20 10:18 56 141/73 01/26/20 10:18 141/73 01/26/20 08:00 97.2 56 20 141/73 (95) 95 01/26/20 07:53 98 Nasal Cannula 2.0 28 01/26/20 04:00 97.0 53 18 145/66 (92) 100 01/26/20 00:00 98.4 64 18 126/64 (84) 100 01/25/20 21:00 Nasal Cannula 1.0 01/25/20 20:11 56 140/70 01/25/20 20:00 96 Nasal Cannula 2.0 28 01/25/20 20:00 98.8 56 19 140/70 (93) 95 01/25/20 16:00 98.0 64 19 136/62 (86) 98 Height (Feet): 5 Height (Inches): 7.00 Weight (Pounds): 144 General Appearance: no acute distress HEENT: mucous membranes moist Respiratory/Chest: lungs clear Cardiovascular: normal rate Abdomen: soft, non tender Extremities: no edema Neurologic/Psychiatric: alert, responsive Microbiology Date/Time Source Procedure Growth Status 01/24/20 16:00 Nasopharynx Coronavirus COVID-19 PCR (JOSE) - Final Complete Current Medications Medications (Trade) Dose Ordered Sig/Wayne Route PRN Reason Start Time Stop Time Status Last Admin Dose Admin Acetaminophen (Tylenol) 650 mg Q4H PRN ORAL Mild Pain (Pain Scale 1-3) 01/19/20 00:45 02/11/20 20:44 01/25/20 09:25 Amlodipine Besylate (Norvasc) 10 mg DAILY ORAL 01/19/20 09:00 02/15/20 08:59 01/26/20 10:19 Ascorbic Acid (Vitamin C) 250 mg DAILY ORAL 01/19/20 09:00 02/17/20 08:59 01/26/20 10:19 Aspirin (ASA) 81 mg DAILY ORAL 01/19/20 09:00 02/27/20 08:59 01/26/20 10:19 Bisacodyl (Dulcolax) 10 mg DAILYPRN PRN RECTAL Constipation 01/23/20 16:00 04/22/20 15:59 Clonidine HCl (Catapres Tab) 0.1 mg Q4H PRN ORAL For High Blood Pressure 01/19/20 01:30 04/13/20 13:29 01/21/20 21:45 Docusate Sodium (Colace) 250 mg BID ORAL 01/23/20 18:00 02/22/20 17:59 01/26/20 10:19 Labetalol HCl (Normodyne) 300 mg Q12HR ORAL 01/26/20 09:00 02/25/20 08:59 01/26/20 10:18 Latanoprost (Xalatan) 1 drop BEDTIME BOTH EYES 01/19/20 21:00 02/12/20 00:59 01/25/20 20:11 Lisinopril (PriniviL) 20 mg DAILY ORAL 01/24/20 09:00 02/23/20 08:59 01/26/20 10:18 Ondansetron HCl (Zofran) 4 mg Q4H PRN IVP Nausea & Vomiting 01/18/20 23:43 02/17/20 23:42 Pravastatin Sodium (Pravachol) 20 mg BEDTIME ORAL 01/21/20 21:00 02/20/20 20:59 01/25/20 20:11 Lionel Chao MD Jan 26, 2020 14:11
--- NOTE | 2020-01-26 15:33 | Surgery Progress Note ---
Surgery Progress Note Subjective Symptoms: improved, tolerating diet, passing flatus, BM Objective Last 24 Hour Vital Signs Date Time Temp Pulse Resp B/P (MAP) Pulse Ox O2 Delivery O2 Flow Rate FiO2 01/26/20 12:00 96.8 53 18 124/69 (87) 96 01/26/20 10:19 56 141/73 01/26/20 10:18 56 141/73 01/26/20 10:18 141/73 01/26/20 09:00 Nasal Cannula 1.0 01/26/20 08:00 97.2 56 20 141/73 (95) 95 01/26/20 07:53 98 Nasal Cannula 2.0 28 01/26/20 04:00 97.0 53 18 145/66 (92) 100 01/26/20 00:00 98.4 64 18 126/64 (84) 100 01/25/20 21:00 Nasal Cannula 1.0 01/25/20 20:11 56 140/70 01/25/20 20:00 96 Nasal Cannula 2.0 28 01/25/20 20:00 98.8 56 19 140/70 (93) 95 01/25/20 16:00 98.0 64 19 136/62 (86) 98 I&O Intake and Output 01/25/20 01/26/20 19:00 07:00 Intake Total 300 ml 200 ml Balance 300 ml 200 ml Intake Oral 300 ml 200 ml # Voids 3 3 Dressing: other Wound: other Drains: other Cardiovascular: RSR Respiratory: decreased breath sounds Abdomen: soft, non-tender, present bowel sounds Extremities: no tenderness, no cyanosis Plan Problems: (1) COVID-19 Assessment & Plan: positive all precautions taken (2) UTI (urinary tract infection) (3) Dehydration (4) Fever (5) Hematuria (6) CAD (coronary artery disease) (7) Fever of unknown origin (8) Proteinuria (9) Malnutrition of moderate degree Assessment & Plan: DAILY ESTIMATED NEEDS: Needs based on cardiac, wound, DM/ 65kg 25-30 kcals/kg 0381-0039 total kcals 1.25-1.5 g protein/kg 81-98 g total protein 25-30 mL/kg 4925-7596 total fluid mLs NUTRITION DIAGNOSIS: * Swallowing difficulty R/T dysphagia, h/o CVA as evidenced by pt on liquify pureed, NTL per SLEEP TECHNOLOGIST rec. CURRENT DIET:Cardiac liq puree w/ NTL PO DIET RECOMMENDATIONS: Low na diet/ texture per SLEEP TECHNOLOGIST + continue Glucerna BID w/ meals ADDITIONAL RECOMMENDATIONS: * Calibrated bedscale wt for accurate CBW (143# per SNF) * Add GLUCERNA BID w/ meals w/ variable po * Wound care: as tolerated SATYA BID + Vit C 250mg daily * Monitor BGs closely, rec NISS for coverage * Consider appetite stimulant * Consult RD if temp non oral feeds are part of POC (10) Sepsis (11) Sepsis Assessment & Plan: Leukocytosis, febrile covid positive , on support evaluated and noted to have presented on admission with an open Sacral DTPI Base of wound is purple with small opening at sacrococcygeal area. Hyperpigmentation noted to cleft of buttocks /perianal area. considered as possible infection. unlikely uti, cxr okay on abx as per ID Apply Moisture Barrier Paste to Sacrum. Cover with Optifoam drsg. Change every 3 days and prn. Apply Moisture Barrier Paste to cleft of buttocks and scrotum with each incontinence care. Apply Cavilon Skin Barrier to both heels. Cover each heel with Optifoam drsg. Change every 7 days and prn. Reposition at least every 2hours or as tolerated. Off-load heels with pillow. APM/ERASMO Mattress overlay. cont current care stable (12) Pneumonia (13) Uncontrolled diabetes mellitus Kristopher Ayala Jan 26, 2020 15:33
[2020-01-26 16:00] VITALS: BP 106/57
--- NOTE | 2020-01-26 19:45 | NUR ---
HAND-OFF: Report given to Anca Valdivia RN. Patient sitting up in bed, awake and alert to name, watching television, bed in lowest position, call light within reach, siderails up x 3, meal on bedside table, saturating 95% on room air, no c/o pain, no SOB, in no apparent distress, urinal at bedside.
--- NOTE | 2020-01-26 19:58 | NUR ---
NURSE NOTES: Received patient awake, resting in bed, Yakut speaking, no SOB noted.
[2020-01-26 20:00] VITALS: BP 137/75
[2020-01-26] MEDS: Latanoprost 0.005% Opth 2.5ml Soln BOTH EYES SCH (21:20)
[2020-01-27 00:11] VITALS: BP 109/55
[2020-01-27 04:00] VITALS: BP 117/55
--- NOTE | 2020-01-27 04:29 | Discharge Summary ---
DATE OF ADMISSION: 01/12/2020 DATE OF DISCHARGE: 01/26/2020 ADMISSION DIAGNOSES: 1. COVID-19 pneumonia. 2. Dementia. 3. Respiratory insufficiency and hypoxemia. 4. Diabetes. 5. History of dysphagia. 6. Ischemic cardiomyopathy. 7. Hypothyroidism. DISCHARGE DIAGNOSES: 1. COVID-19 pneumonia. 2. Dementia. 3. Respiratory insufficiency and hypoxemia. 4. Diabetes. 5. History of dysphagia. 6. Ischemic cardiomyopathy. 7. Hypothyroidism. HOSPITAL COURSE: The patient is an elderly male who was admitted with complaints of COVID-19 pneumonia, respiratory distress. He was placed on supplemental oxygen. He did have a borderline elevated troponin. Cardiology, Infectious Diseases, pulmonary consultations were obtained. The patient was kept in isolation. He was seen by Infectious Diseases compensation consultant. The patient was initiated on therapy with hydroxychloroquine, tolerated the treatment well and clinically he did improve. He had no further fevers. He had two negative COVID PCR prior to discharge. On discharge, he was stable. Please see discharge medication list for discharge medications. DIET: Diet cardiac diabetic diet. ACTIVITY: Ad-rae. FOLLOWUP: The patient to be followed by his PMD at the longterm facility. Eliud Lizama M.D. DR: Ernie JOB#: [id number] CC:
--- NOTE | 2020-01-27 05:45 | Progress Note ---
DATE: 01/26/2020 CARDIOLOGY PROGRESS NOTE SUBJECTIVE: The patient has no shortness of breath. COVID swab x2 are negative. No chest pain. OBJECTIVE: VITAL SIGNS: Blood pressure 145/66, heart rate 53, respiratory rate 18. LUNGS: With good breath sounds. CARDIAC: Regular rhythm and rate. Normal S1, S2. ABDOMEN: Soft. EXTREMITIES: There is no edema. IMPRESSION: 1. Ischemic heart disease. 2. Compensated congestive heart failure. 3. COVID-19 pneumonia. 4. Resolved hypoxia. 5. Asymptomatic bradycardia on beta-janis therapy. PLAN: Recheck electrolytes. Discharge plan to nursing home facility. Hold parameters for beta-janis. Vishal Drummond M.D. DR: KATEY JOB#: [id number] CC:
--- NOTE | 2020-01-27 07:28 | NUR ---
HAND-OFF: Report given to KAI Last.
[2020-01-27 08:00] VITALS: BP 140/68
--- NOTE | 2020-01-27 08:22 | NUR ---
NURSE NOTES: Report received from Anca QUINN. Patient seen on rounds, AxOx1, Thai-speaking. Not in distress, no outward sx of pain. Tolerating room air. PIV on right forearm patent and intact. Bed low and locked, siderails up x2, zone alarms on 1, will continue to monitor.
--- NOTE | 2020-01-27 08:51 | Pulmonology Progress Note ---
Assessment/Plan Assessment/Plan ASSESSMENT: COVID-19 pneumonia, respiratory failure, acute [place] hypertension, diabetes, hypothyroidism, hypernatremia protein calorie malnutrition bacteremia PLAN respiratory noted and overnight events reviewed monitor oxygen saturations >92%; on 2 liters oxygen customer consultant care reviewed monitor congestion and optimize aspiration precautions and elevate head review and monitor for fevers or deterioration position change no recent imaging noted monitor nutrition impression, plan, and exam edited and reviewed in detail care discussed with RN. Subjective ROS Limited/Unobtainable: Yes Constitutional: Denies: fever Allergies: Coded Allergies: No Known Allergies (Unverified , 08/16/14) All Systems: reviewed and negative except above Subjective overnight events reviewed no distress on low flow oxygen minimal congestion MD care reviewed Objective Last 24 Hour Vital Signs Date Time Temp Pulse Resp B/P (MAP) Pulse Ox O2 Delivery O2 Flow Rate FiO2 01/27/20 04:00 97.7 66 18 117/55 (75) 95 01/27/20 00:11 97.7 65 18 109/55 (73) 96 01/26/20 21:19 68 137/75 01/26/20 20:28 Nasal Cannula 2.0 01/26/20 20:00 97.5 68 18 137/75 (95) 94 01/26/20 20:00 97 Nasal Cannula 2.0 28 01/26/20 16:00 97.5 57 18 106/57 (73) 96 01/26/20 12:00 96.8 53 18 124/69 (87) 96 01/26/20 10:19 56 141/73 01/26/20 10:18 56 141/73 01/26/20 10:18 141/73 01/26/20 09:00 Nasal Cannula 1.0 Intake and Output 01/26/20 01/27/20 19:00 07:00 # Voids 2 2 # Bowel Movements 1 1 Objective WDWN NAD reduced breath sounds bilaterally without rhonchi or wheeze [id number] without MRG NABS nontender no HSM no CCE confused and weak reviewed and edited General Appearance: no acute distress HEENT: mucous membranes moist Abdomen: soft, non tender Extremities: no edema Neurologic/Psychiatric: alert, responsive Microbiology Date/Time Source Procedure Growth Status 01/24/20 16:00 Nasopharynx Coronavirus COVID-19 PCR (JOSE) - Final Complete Current Medications Medications (Trade) Dose Ordered Sig/Wayne Route PRN Reason Start Time Stop Time Status Last Admin Dose Admin Acetaminophen (Tylenol) 650 mg Q4H PRN ORAL Mild Pain (Pain Scale 1-3) 01/19/20 00:45 02/11/20 20:44 01/25/20 09:25 Amlodipine Besylate (Norvasc) 10 mg DAILY ORAL 01/19/20 09:00 02/15/20 08:59 01/26/20 10:19 Ascorbic Acid (Vitamin C) 250 mg DAILY ORAL 01/19/20 09:00 02/17/20 08:59 01/26/20 10:19 Aspirin (ASA) 81 mg DAILY ORAL 01/19/20 09:00 02/27/20 08:59 01/26/20 10:19 Bisacodyl (Dulcolax) 10 mg DAILYPRN PRN RECTAL Constipation 01/23/20 16:00 04/22/20 15:59 Clonidine HCl (Catapres Tab) 0.1 mg Q4H PRN ORAL For High Blood Pressure 01/19/20 01:30 04/13/20 13:29 01/21/20 21:45 Docusate Sodium (Colace) 250 mg BID ORAL 01/23/20 18:00 02/22/20 17:59 01/26/20 18:07 Labetalol HCl (Normodyne) 300 mg Q12HR ORAL 01/26/20 09:00 02/25/20 08:59 01/26/20 21:19 Latanoprost (Xalatan) 1 drop BEDTIME BOTH EYES 01/19/20 21:00 02/12/20 00:59 01/26/20 21:20 Lisinopril (PriniviL) 20 mg DAILY ORAL 01/24/20 09:00 02/23/20 08:59 01/26/20 10:18 Ondansetron HCl (Zofran) 4 mg Q4H PRN IVP Nausea & Vomiting 01/18/20 23:43 02/17/20 23:42 Pravastatin Sodium (Pravachol) 20 mg BEDTIME ORAL 01/21/20 21:00 02/20/20 20:59 01/26/20 21:19 Gustavo Jorgensen MD Jan 27, 2020 08:51
--- NOTE | 2020-01-27 09:19 | General Progress Note ---
Assessment/Plan Problem List: (1) UTI (urinary tract infection) ICD Codes: N39.0 - Urinary tract infection, site not specified SNOMED: 80663050 (2) Dehydration ICD Codes: E86.0 - Dehydration SNOMED: 18132123 (3) Fever ICD Codes: R50.9 - Fever, unspecified SNOMED: 229377663 (4) CAD (coronary artery disease) ICD Codes: I25.10 - Atherosclerotic heart disease of [place] coronary artery without angina pectoris SNOMED: 36773448 (5) Fever of unknown origin ICD Codes: R50.9 - Fever, unspecified SNOMED: 3029949 (6) COVID-19 ICD Codes: U07.1 - COVID-19 SNOMED: 917405836 (7) Uncontrolled diabetes mellitus ICD Codes: E11.9 - Type 2 diabetes mellitus without complications SNOMED: 279562813 (8) Pneumonia ICD Codes: J18.9 - Pneumonia, unspecified organism SNOMED: 512767216 (9) Sepsis ICD Codes: A41.9 - Sepsis, unspecified organism SNOMED: 90380849 Status: stable Assessment/Plan: cont current rx. follow up pending labs. Supplemental oxygen to keep sats greater than 92%. Monitor lytes- replace as needed Aspiration precautions. monitor bp and titrate as needed. dvt and stress ulcer prophylaxis. repeat covid 19 pcr neg x 2. stable for dc to snf Subjective ROS Limited/Unobtainable: No Constitutional: Reports: malaise, weakness HEENT: Reports: no symptoms Cardiovascular: Reports: no symptoms Respiratory: Reports: shortness of breath Gastrointestinal/Abdominal: Reports: no symptoms Genitourinary: Reports: no symptoms Neurologic/Psychiatric: Reports: pre-existing deficit Endocrine: Reports: no symptoms Hematologic/Lymphatic: Reports: no symptoms Allergies: Coded Allergies: No Known Allergies (Unverified , 08/16/14) All Systems: reviewed and negative except above Subjective No overnight events. on med surg. Currently resting. O2 saturation remained stable on 2 L nasal cannula. labile bp. eating well. no fevers. covid 19 pcr neg x 1. 2nd test [facility] Objective Last 24 Hour Vital Signs Date Time Temp Pulse Resp B/P (MAP) Pulse Ox O2 Delivery O2 Flow Rate FiO2 01/27/20 04:00 97.7 66 18 117/55 (75) 95 01/27/20 00:11 97.7 65 18 109/55 (73) 96 01/26/20 21:19 68 137/75 01/26/20 20:28 Nasal Cannula 2.0 01/26/20 20:00 97.5 68 18 137/75 (95) 94 01/26/20 20:00 97 Nasal Cannula 2.0 28 01/26/20 16:00 97.5 57 18 106/57 (73) 96 01/26/20 12:00 96.8 53 18 124/69 (87) 96 01/26/20 10:19 56 141/73 01/26/20 10:18 56 141/73 01/26/20 10:18 141/73 Intake and Output 01/26/20 01/27/20 19:00 07:00 # Voids 2 2 # Bowel Movements 1 1 Height (Feet): 5 Height (Inches): 7.00 Weight (Pounds): 144 Objective General Appearance: WD/WN, alert Neck: supple Cardiovascular: normal rate, regular rhythm Respiratory/Chest: chest wall non-tender, lungs clear, normal breath sounds Abdomen: normal bowel sounds, non tender, soft, no organomegaly Edema: no edema noted Arm (L), no edema noted Arm (R), no edema noted Leg (L), no edema noted Leg (R), no edema noted Pedal (L), no edema noted Pedal (R), no edema noted Generalized Eliud Lizama MD Jan 27, 2020 09:19
[2020-01-27] MEDS: Ascorbic Acid 500mg tab ORAL SCH (09:26)
[2020-01-27] MEDS: Aspirin Baby 81mg ORAL SCH (09:26)
[2020-01-27] MEDS: Lisinopril 20mg tab ORAL SCH (09:26)
[2020-01-27] MEDS: Docusate 250mg cap ORAL SCH (09:26)
[2020-01-27 10:29] LABS: BASOPHILS % (AUTO) 0.4 % (0.0-2.0); HEMATOCRIT 34.6 % (42.0-52.0); HEMOGLOBIN 12.1 G/DL (14.2-18.0); LYMPHOCYTES % (AUTO) 10.8 % (20.0-45.0); MEAN CORPUSCULAR VOLUME 91 FL (80-99); MONOCYTES % (AUTO) 4.8 % (1.0-10.0); PLATELET COUNT 214 K/UL (150-450); RED BLOOD COUNT 3.79 M/UL (4.70-6.10); RED CELL DISTRIBUTION WIDTH 11.8 % (11.6-14.8); WHITE BLOOD COUNT 8.1 K/UL (4.8-10.8)
--- NOTE | 2020-01-27 11:26 | Infectious Diseases Prog Note ---
Assessment/Plan Assessment/Plan antibiotics none A 1. Covid 19 pneumonia s.p hydroxychloroquine rx test negative 4.15.20, 4.21.20 2. coag neg staph in blood likely contaminated 3. diabetes mellitus 4. hypertension 5. CVA 6. leucocytosis resolved P 1. observe off antibiotics 2. d/c isolation Subjective ROS Limited/Unobtainable: Yes Allergies: Coded Allergies: No Known Allergies (Unverified , 08/16/14) Objective Vital Signs Last 24 Hour Vital Signs Date Time Temp Pulse Resp B/P (MAP) Pulse Ox O2 Delivery O2 Flow Rate FiO2 01/27/20 09:27 60 140/68 01/27/20 09:27 60 140/68 01/27/20 09:26 140/68 01/27/20 09:00 Nasal Cannula 2.0 01/27/20 08:00 98.4 60 18 140/68 (92) 96 01/27/20 04:00 97.7 66 18 117/55 (75) 95 01/27/20 00:11 97.7 65 18 109/55 (73) 96 01/26/20 21:19 68 137/75 01/26/20 20:28 Nasal Cannula 2.0 01/26/20 20:00 97.5 68 18 137/75 (95) 94 01/26/20 20:00 97 Nasal Cannula 2.0 28 01/26/20 16:00 97.5 57 18 106/57 (73) 96 01/26/20 12:00 96.8 53 18 124/69 (87) 96 Height (Feet): 5 Height (Inches): 7.00 Weight (Pounds): 144 Microbiology Date/Time Source Procedure Growth Status 01/24/20 16:00 Nasopharynx Coronavirus COVID-19 PCR (JOSE) - Final Complete Laboratory Tests Test 01/27/20 10:05 White Blood Count 8.1 K/UL (4.8-10.8) Red Blood Count 3.79 M/UL (4.70-6.10) L Hemoglobin 12.1 G/DL (14.2-18.0) L Hematocrit 34.6 % (42.0-52.0) L Mean Corpuscular Volume 91 FL (80-99) Mean Corpuscular Hemoglobin 31.8 PG (27.0-31.0) H Mean Corpuscular Hemoglobin Concent 34.8 G/DL (32.0-36.0) Red Cell Distribution Width 11.8 % (11.6-14.8) Platelet Count 214 K/UL (150-450) Mean Platelet Volume 4.5 FL (6.5-10.1) L Neutrophils (%) (Auto) 83.0 % (45.0-75.0) H Lymphocytes (%) (Auto) 10.8 % (20.0-45.0) L Monocytes (%) (Auto) 4.8 % (1.0-10.0) Eosinophils (%) (Auto) 1.0 % (0.0-3.0) Basophils (%) (Auto) 0.4 % (0.0-2.0) Sodium Level Pending Potassium Level Pending Chloride Level Pending Carbon Dioxide Level Pending Blood Urea Nitrogen Pending Creatinine Pending Estimat Glomerular Filtration Rate Pending Glucose Level Pending Calcium Level Pending Magnesium Level Pending Total Bilirubin Pending Aspartate Amino Transf (AST/SGOT) Pending Alanine Aminotransferase (ALT/SGPT) Pending Alkaline Phosphatase Pending Pro-B-Type Natriuretic Peptide Pending Total Protein Pending Albumin Pending Globulin Pending Current Medications Medications (Trade) Dose Ordered Sig/Wayne Route PRN Reason Start Time Stop Time Status Last Admin Dose Admin Acetaminophen (Tylenol) 650 mg Q4H PRN ORAL Mild Pain (Pain Scale 1-3) 01/19/20 00:45 02/11/20 20:44 01/25/20 09:25 Amlodipine Besylate (Norvasc) 10 mg DAILY ORAL 01/19/20 09:00 02/15/20 08:59 01/27/20 09:27 Ascorbic Acid (Vitamin C) 250 mg DAILY ORAL 01/19/20 09:00 02/17/20 08:59 01/27/20 09:26 Aspirin (ASA) 81 mg DAILY ORAL 01/19/20 09:00 02/27/20 08:59 01/27/20 09:26 Bisacodyl (Dulcolax) 10 mg DAILYPRN PRN RECTAL Constipation 01/23/20 16:00 04/22/20 15:59 Clonidine HCl (Catapres Tab) 0.1 mg Q4H PRN ORAL For High Blood Pressure 01/19/20 01:30 04/13/20 13:29 01/21/20 21:45 Docusate Sodium (Colace) 250 mg BID ORAL 01/23/20 18:00 02/22/20 17:59 01/27/20 09:26 Labetalol HCl (Normodyne) 300 mg Q12HR ORAL 01/26/20 09:00 02/25/20 08:59 01/27/20 09:27 Latanoprost (Xalatan) 1 drop BEDTIME BOTH EYES 01/19/20 21:00 02/12/20 00:59 01/26/20 21:20 Lisinopril (PriniviL) 20 mg DAILY ORAL 01/24/20 09:00 02/23/20 08:59 01/27/20 09:26 Ondansetron HCl (Zofran) 4 mg Q4H PRN IVP Nausea & Vomiting 01/18/20 23:43 02/17/20 23:42 Pravastatin Sodium (Pravachol) 20 mg BEDTIME ORAL 01/21/20 21:00 02/20/20 20:59 01/26/20 21:19 Radames Morales MD Jan 27, 2020 11:26
[2020-01-27 12:00] VITALS: BP 110/59
[2020-01-27 12:06] LABS: ALANINE AMINOTRANSFERASE 24 U/L (12-78); ALBUMIN 2.8 G/DL (3.4-5.0); ALBUMIN/GLOBULIN RATIO 0.8 (1.0-2.7); ALKALINE PHOSPHATASE 43 U/L (46-116); ANION GAP 7 mmol/L (5-15); ASPARTATE AMINO TRANSFERASE 14 U/L (15-37); BILIRUBIN,TOTAL 0.3 MG/DL (0.2-1.0); BLOOD UREA NITROGEN 26 mg/dL (7-18); CALCIUM 8.8 MG/DL (8.5-10.1); CARBON DIOXIDE 33 MMOL/L (21-32); CHLORIDE 103 MMOL/L (98-107); CREATININE 0.8 MG/DL (0.55-1.30); POTASSIUM 3.8 MMOL/L (3.5-5.1); SODIUM 143 MMOL/L (136-145)
--- NOTE | 2020-01-27 14:33 | NUR ---
DISCHARGE PLANNING LATE ENTRY: S/W MYKEL IN AM IN RE TO RE-ADMISSION. STATES HIS CHILI MAKER HAS NOT GIVEN AN ANSWER IN RE TO RE-ADMISSION. PER DR PAIZ, PATIENT REFERRED TO [facility] P:[phone] F: [phone] FOLLOW UP CALL MADE TO [facility]. S/W LUBNA. STATES THEY MAY NOT BE ABLE TO ACCEPT PATIENT AT THIS TIME. BUT WILL CONSULT WITH [facility] PRIOR TO GIVING A DEFINITE NO. WILL FOLLOW UP. CALL MADE TO DR PAIZ OFFICE AND LEFT MESSAGE REQUESTING CALL BACK TO INFORM OF PLACEMENT BARRIERS.
--- NOTE | 2020-01-27 14:42 | Surgery Progress Note ---
Surgery Progress Note Subjective Additional Comments stable comfortable exam unchanged labs reviewed dressings going well Objective Last 24 Hour Vital Signs Date Time Temp Pulse Resp B/P (MAP) Pulse Ox O2 Delivery O2 Flow Rate FiO2 01/27/20 12:00 98.6 60 18 110/59 (76) 95 01/27/20 09:27 60 140/68 01/27/20 09:27 60 140/68 01/27/20 09:26 140/68 01/27/20 09:00 Nasal Cannula 2.0 01/27/20 08:00 98.4 60 18 140/68 (92) 96 01/27/20 04:00 97.7 66 18 117/55 (75) 95 01/27/20 00:11 97.7 65 18 109/55 (73) 96 01/26/20 21:19 68 137/75 01/26/20 20:28 Nasal Cannula 2.0 01/26/20 20:00 97.5 68 18 137/75 (95) 94 01/26/20 20:00 97 Nasal Cannula 2.0 28 01/26/20 16:00 97.5 57 18 106/57 (73) 96 I&O Intake and Output 01/26/20 01/27/20 19:00 07:00 # Voids 2 2 # Bowel Movements 1 1 Dressing: other Wound: other Drains: other Cardiovascular: RSR Respiratory: decreased breath sounds Abdomen: soft, non-tender, present bowel sounds Extremities: no tenderness, no cyanosis Laboratory Tests Test 01/27/20 10:05 White Blood Count 8.1 K/UL (4.8-10.8) Red Blood Count 3.79 M/UL (4.70-6.10) L Hemoglobin 12.1 G/DL (14.2-18.0) L Hematocrit 34.6 % (42.0-52.0) L Mean Corpuscular Volume 91 FL (80-99) Mean Corpuscular Hemoglobin 31.8 PG (27.0-31.0) H Mean Corpuscular Hemoglobin Concent 34.8 G/DL (32.0-36.0) Red Cell Distribution Width 11.8 % (11.6-14.8) Platelet Count 214 K/UL (150-450) Mean Platelet Volume 4.5 FL (6.5-10.1) L Neutrophils (%) (Auto) 83.0 % (45.0-75.0) H Lymphocytes (%) (Auto) 10.8 % (20.0-45.0) L Monocytes (%) (Auto) 4.8 % (1.0-10.0) Eosinophils (%) (Auto) 1.0 % (0.0-3.0) Basophils (%) (Auto) 0.4 % (0.0-2.0) Sodium Level 143 MMOL/L (136-145) Potassium Level 3.8 MMOL/L (3.5-5.1) Chloride Level 103 MMOL/L (98-107) Carbon Dioxide Level 33 MMOL/L (21-32) H Anion Gap 7 mmol/L (5-15) Blood Urea Nitrogen 26 mg/dL (7-18) H Creatinine 0.8 MG/DL (0.55-1.30) Estimat Glomerular Filtration Rate > 60 mL/min (>60) Glucose Level 294 MG/DL (74-106) H Calcium Level 8.8 MG/DL (8.5-10.1) Magnesium Level 2.0 MG/DL (1.8-2.4) Total Bilirubin 0.3 MG/DL (0.2-1.0) Aspartate Amino Transf (AST/SGOT) 14 U/L (15-37) L Alanine Aminotransferase (ALT/SGPT) 24 U/L (12-78) Alkaline Phosphatase 43 U/L (46-116) L Pro-B-Type Natriuretic Peptide 234 pg/mL (0-125) H Total Protein 6.1 G/DL (6.4-8.2) L Albumin 2.8 G/DL (3.4-5.0) L Globulin 3.3 g/dL Albumin/Globulin Ratio 0.8 (1.0-2.7) L Plan Problems: (1) COVID-19 Assessment & Plan: positive all precautions taken (2) UTI (urinary tract infection) (3) Dehydration (4) Fever (5) Hematuria (6) CAD (coronary artery disease) (7) Fever of unknown origin (8) Proteinuria (9) Malnutrition of moderate degree Assessment & Plan: DAILY ESTIMATED NEEDS: Needs based on cardiac, wound, DM/ 65kg 25-30 kcals/kg 2043-0657 total kcals 1.25-1.5 g protein/kg 81-98 g total protein 25-30 mL/kg 9384-0951 total fluid mLs NUTRITION DIAGNOSIS: * Swallowing difficulty R/T dysphagia, h/o CVA as evidenced by pt on liquify pureed, NTL per [employer] rec. CURRENT DIET:Cardiac liq puree w/ NTL PO DIET RECOMMENDATIONS: Low na diet/ texture per [employer] + continue Glucerna BID w/ meals ADDITIONAL RECOMMENDATIONS: * Calibrated bedscale wt for accurate CBW (143# per SNF) * Add GLUCERNA BID w/ meals w/ variable po * Wound care: as tolerated SATYA BID + Vit C 250mg daily * Monitor BGs closely, rec NISS for coverage * Consider appetite stimulant * Consult RD if temp non oral feeds are part of POC (10) Sepsis (11) Sepsis Assessment & Plan: Leukocytosis, febrile covid positive , on support evaluated and noted to have presented on admission with an open Sacral DTPI Base of wound is purple with small opening at sacrococcygeal area. Hyperpigmentation noted to cleft of buttocks /perianal area. considered as possible infection. unlikely uti, cxr okay on abx as per ID Apply Moisture Barrier Paste to Sacrum. Cover with Optifoam drsg. Change every 3 days and prn. Apply Moisture Barrier Paste to cleft of buttocks and scrotum with each incontinence care. Apply Cavilon Skin Barrier to both heels. Cover each heel with Optifoam drsg. Change every 7 days and prn. Reposition at least every 2hours or as tolerated. Off-load heels with pillow. APM/ERASMO Mattress overlay. cont current care stable (12) Pneumonia (13) Uncontrolled diabetes mellitus Kristopher Ayala Jan 27, 2020 14:42
[2020-01-27 16:00] VITALS: BP 114/59
--- NOTE | 2020-01-27 17:33 | NUR ---
NURSE NOTES: Patient discharged to [facility]. AxOx1-2, not in distress, no complaints of pain, tolerating room air. Patient is cleared from ID standpoint and has been Covid neg x2. Vitals stable prior to discharge. Noted sacrum stage 3, picture taken and treatment done with triad and optifoam. PIV and ID band removed. Patient cleaned. All discharge instructions endorsed to nurse IM at [facility]. All paperwork given to ambulance personnel. Patient has no belongings. Patient left hospital at 1730 in stable condition accompanied by 2 ambulance personnel.
--- NOTE | 2020-01-28 04:15 | Progress Note ---
DATE: 01/27/2020 CARDIOLOGY PROGRESS NOTE SUBJECTIVE: The patient is in no respiratory distress. No signs of hypoxia. He is off isolation following two negative COVID-19 swabs. No chest pain or shortness of breath. PHYSICAL EXAMINATION: VITAL SIGNS: Blood pressure 110/59, pulse 68, respiratory rate 18. LUNGS: Clear. CARDIAC: Regular. Normal S1 and S2 with a fourth heart sound. ABDOMEN: Soft, nontender. EXTREMITIES: No edema. LABORATORY DATA: White count 8.1, hemoglobin 12.1. Potassium 3.8, magnesium 2.0, BUN 26, creatinine 0.8. Natriuretic peptide 234. IMPRESSION: 1. COVID-19 pneumonia, resolved. 2. Chronic diastolic congestive heart failure. 3. Ischemic cardiomyopathy. 4. History of CABG. 5. Moderate protein-calorie malnutrition. PLAN: 1. Current medication regimen appropriate. 2. Protein supplement. 3. Long-term anti-platelet and anti-lipid drugs. 4. Stable for transfer to half-way facility. 5. Per will need isolation at half-way facility for an additional 14 days. Vishal Drummond M.D. DR: Freya JOB#: [id number] CC:
== END 2020-01-27 18:17 | DRG 871 ==
LOC: EDBD 14:15 → EMR 14:54 → 2E 15:03 → EDBEDREQ 17:29 → 2E 18:06 → 4E 01-18 23:47
DX: A41.89 Other specified sepsis (principal); U07.1 COVID-19; I21.4 Non-ST elevation (NSTEMI) myocardial infarction; I50.33 Acute on chronic diastolic (congestive) heart failure; J96.01 Acute respiratory failure with hypoxia; N17.9 Acute kidney failure, unspecified; E87.0 Hyperosmolality and hypernatremia; E44.0 Moderate protein-calorie malnutrition; B37.41 Candidal cystitis and urethritis; Z86.73 Personal history of transient ischemic attack (TIA), and cerebral infarction without residual deficits; E03.9 Hypothyroidism, unspecified; H40.9 Unspecified glaucoma; F01.50 Vascular dementia, unspecified severity, without behavioral disturbance, psychotic disturbance, mood disturbance, and anxiety; Z95.1 Presence of aortocoronary bypass graft; I13.10 Hypertensive heart and chronic kidney disease without heart failure, with stage 1 through stage 4 chronic kidney disease, or unspecified chronic kidney disease; E11.22 Type 2 diabetes mellitus with diabetic chronic kidney disease; N18.9 Chronic kidney disease, unspecified; Z66 Do not resuscitate; Z79.84 Long term (current) use of oral hypoglycemic drugs; E11.65 Type 2 diabetes mellitus with hyperglycemia; E86.0 Dehydration; I47.9 Paroxysmal tachycardia, unspecified; E87.6 Hypokalemia; I25.5 Ischemic cardiomyopathy; I25.118 Atherosclerotic heart disease of native coronary artery with other forms of angina pectoris
CPT/HCPCS: 36415; 71045; 80048; 80053; 80061; 80202; 81003; 82550; 82553; 83605; 83690; 83735; 83880; 84484; 85007; 85025; 87040; 87081; 87086; 87181; 87635; 92610; 93005; 96365; 96368; 99291; J7030; J8499